=== PATIENT | female | born 1955 | race African-American/Black ===

== ENCOUNTER 2017-03-07 05:37 | Emergency (ER) | payer MEDICARE, MEDICAID ==
[~2017-03-07] VITALS: Ht 162.6 cm; Wt 119.3 kg
[~2017-03-07 05:37] MED LIST: AZO BLADDER CO300 MG PO; AZOR 10-40 MG1 EACH ORAL; CEFDINIR300 MG PO; CIPRO500 MG PO; CIPROFLOXACIN500 M2 ORAL; IBUPROFEN600 MG ORAL; IBUPROFEN800 MG ORAL; JANUVIA25 MG ORAL; KLONOPIN1 MG ORAL; LEVAQUIN500 MG ORAL; LYRICA75 M1 ORAL; METRONIDAZOLE500 MG ORAL; OXYCODONE-ACET1 EAC3 ORAL; PAROXETINE HC12.5 MG ORAL; PHENAZOPYRIDIN200 MG ORAL; PRAVASTATIN SOD20 M1 ORAL; PREDNISONE20 MG ORAL; ZOFRAN4 MG ORAL; antibiotic PO
--- NOTE | 2017-03-07 06:15 | Emergency Room Report ---
History of Present Illness General Chief Complaint: Edema Source: Patient (DWAINE PADILLA M.D.) Present Illness HPI Is a 61-year-old female with history hypertension and hyperlipidemia. She presents with chief complaint of increasing edema for last week. No trauma. Has dyspnea exertion. Her chest pain. Edema is bilaterally. Never had this problem before. No fever chills but no nausea vomiting. No urinary complaint. (DWAINE PADILLA M.D.) Allergies: Coded Allergies: ERYTHROMYCIN BASE (Unverified Allergy, Unknown, 07/25/16) Patient History Past Medical History: see triage record, old chart reviewed, HTN Past Surgical History: other Pertinent Family History: none Social History: Denies: smoking Now: No Immunizations: other Reviewed Nursing Documentation: PMH: Agreed, PSxH: Agreed (DWAINE PADILLA M.D.) Nursing Documentation-PMH Hx Cardiac Problems: Yes - HIGH CHOLESTEROL Hx Hypertension: Yes Hx Diabetes: Yes - TYPE 2 Hx Cancer: No Hx Gastrointestinal Problems: Yes - KIDNEY STONES REMOVAL Hx Dialysis: No - stent in urethra, kidney stone on right side History Of Psychiatric Problem: Yes - ANXIETY Hx Neurological Problems: No Hx Cerebrovascular Accident: No (DWAINE PADILLA M.D.) Review of Systems Eye: Denies: blurred vision, eye pain ENT: Denies: ear pain, nose congestion, throat swelling Respiratory: Reports: PINEDA, Denies: cough, shortness of breath Cardiovascular: Denies: chest pain, palpitations Gastrointestinal: Denies: abdominal pain, diarrhea, nausea, vomiting Musculoskeletal: Denies: back pain, joint pain Skin: Denies: rash Neurological: Denies: headache, numbness Endocrine: Denies: increased thirst, increased urine Hematologic/Lymphatic: Denies: easy bruising All Other Systems: negative except mentioned in HPI (DWAINE PADILLA M.D.) Physical Exam Vital Signs Date Time Temp Pulse Resp B/P Pulse Ox O2 Delivery O2 Flow Rate FiO2 03/07/17 05:43 97.9 80 16 127/81 97 Room Air vitals normal Sp02 EP Interpretation: reviewed, normal General Appearance: well appearing, no apparent distress, alert, obese Head: normocephalic, atraumatic Eyes: bilateral eye EOMI, bilateral eye PERRL ENT: hearing grossly normal, normal pharynx Neck: full range of motion, supple, no meningismus Respiratory: chest non-tender, lungs clear, normal breath sounds Cardiovascular #1: regular rate, rhythm, no murmur Gastrointestinal: normal bowel sounds, non tender, no mass, no organomegaly, no bruit, non-distended Musculoskeletal: back normal, gait/station normal, normal range of motion, swelling - 1+ pitting edema Neurologic: alert, oriented x3 Psychiatric: mood/affect normal Skin: warm/dry (DWAINE PADILLA M.D.) Medical Decision Making Diagnostic Impression: Primary Impression: Peripheral edema Additional Impressions: Renal insufficiency Dyspnea Qualified Codes: R06.09 - Other forms of dyspnea Bronchospasm LFT elevation ER Course Patient with pedal edema. Clinically no evidence of CHF. Lungs are clear. Oxidation is normal. X-rays unremarkable. We'll check labs and cardiac workup. I will sign this patient out to Dr. Llanos for lab results and final disposition. Lab Results Impression labs unremarkable. (DWAINE PADILLA M.D.) ER Course Agree with the above assessment by Dr. Padilla. She's complaining that the edema of left leg is worse than the right. She also has a back pain shooting down the left-hand side. We need to exclude DVT. and Non-invasive vascular study is ordered. In addition she's been wheezing and will be treated with breathing treatments of albuterol. She's been given a dose of Lasix and we will assess how she does (diuresis). She's been taking Dyazide at home and this has not been helpful for her. With the recent renal stone that was removed a couple of months ago we need to assess renal function. Labs are significant for elevated creatinine and liver function tests. Her blood sugar's not elevated. She states that she's been taking 2-800 mg ibuprofen 3 times a day for the pain in her back. Advised this was unwise because of her kidney function. The patient is improved after treatment. Ambulated to the bathroom without dyspnea. She's also diuresed nicely here. If she was not better I would consider admitting her to the hospital. We also discussed salt intake and edema. The patient is stable for outpatient observation and treatment. Laboratory Tests Test 03/07/17 05:52 03/07/17 06:27 Urine Color Pale yellow Urine Appearance Clear Urine pH 6 (4.5-8.0) Urine Specific [place] 1.005 (1.005-1.035) Urine Protein Negative (NEGATIVE) Urine Glucose (UA) Negative (NEGATIVE) Urine Ketones Negative (NEGATIVE) Urine Occult Blood Negative (NEGATIVE) Urine Nitrite Negative (NEGATIVE) Urine Bilirubin Negative (NEGATIVE) Urine Urobilinogen Normal MG/DL (0.0-1.0) Urine Leukocyte Esterase Negative (NEGATIVE) White Blood Count 8.4 K/UL (4.8-10.8) Red Blood Count 4.35 M/UL (4.20-5.40) Hemoglobin 12.6 G/DL (12.0-16.0) Hematocrit 38.9 % (37.0-47.0) Mean Corpuscular Volume 89 FL (80-99) Mean Corpuscular Hemoglobin 28.9 PG (27.0-31.0) Mean Corpuscular Hemoglobin Concent 32.3 G/DL (32.0-36.0) Red Cell Distribution Width 12.7 % (11.6-14.8) Platelet Count 246 K/UL (150-450) Mean Platelet Volume 8.7 FL (6.5-10.1) Neutrophils (%) (Auto) 59.2 % (45.0-75.0) Lymphocytes (%) (Auto) 27.1 % (20.0-45.0) Monocytes (%) (Auto) 10.1 % (1.0-10.0) H Eosinophils (%) (Auto) 2.7 % (0.0-3.0) Basophils (%) (Auto) 0.9 % (0.0-2.0) Prothrombin Time 9.5 SEC (9.30-11.50) Prothrombin Time INR 0.9 (0.9-1.1) PTT 24 SEC (23-33) Sodium Level 137 mEQ/L (135-145) Potassium Level 3.9 mEQ/L (3.4-4.9) Chloride Level 99 mEQ/L (98-107) Carbon Dioxide Level 26 mEQ/L (20-30) Anion Gap 12 (5-15) Blood Urea Nitrogen 21 mg/dL (7-23) Creatinine 1.4 mg/dL (0.5-0.9) H Estimate Glomerular Filtration Rate 46.3 mL/min (>60) Glucose Level 118 mg/dL (74-106) H Calcium Level 10.0 mg/dL (8.6-10.2) Total Bilirubin 0.7 mg/dL (0.0-1.2) Aspartate Amino Transferase (AST) 36 U/L (5-40) Alanine Aminotransferase (ALT) 47 U/L (3-33) H Alkaline Phosphatase 113 U/L (35-104) H Total Creatine Kinase 327 U/L (26-140) H Creatine Kinase MB 5.0 ng/mL (< 3.8) H Creatine Kinase MB Relative Index 1.5 Troponin I < 0.30 ng/mL (<=0.30) Pro-B-Type Natriuretic Peptide 12 pg/mL (0-125) Total Protein 7.8 g/dL (6.6-8.7) Albumin 4.5 g/dL (3.5-5.2) Globulin 3.3 g/dL Albumin/Globulin Ratio 1.3 (1.0-2.7) (Gordon Llanos M.D.) EKG Diagnostic Results EKG Time: 06:23 Rate: normal Rhythm: NSR ST Segments: no acute changes (DWAINE PADILLA M.D.) Rate: normal Rhythm: NSR ST Segments: no acute changes (Gordon Llanos M.D.) Rhythm Strip Diag. Results Rhythm Strip Time: 06:23 EP Interpretation: yes Rate: 68 Rhythm: NSR, no PVC's, no ectopy (DWAINE PADILLA M.D.) EP Interpretation: yes Rhythm: NSR, no PVC's, no ectopy (Gordon Llanos M.D.) Chest X-Ray Diagnostic Results Chest X-Ray Diagnostic Results : Chest X-Ray Ordered: Yes # of Views/Limited/Complete: 1 View Indication: Shortness of Breath Interpretation: no consolidation, no effusion, no pneumothorax, no acute cardiopulmonary disease Impression: No acute disease Interpreting ER Provider: Electronically interpreted by Dwaine Padilla MD (DWAINE PADILLA M.D.) Chest X-Ray Diagnostic Results : Chest X-Ray Ordered: Yes # of Views/Limited/Complete: 1 View Indication: Shortness of Breath EP Interpretation: Yes Interpretation: no consolidation, no effusion, no pneumothorax, no acute cardiopulmonary disease Impression: No acute disease Interpreting ER Provider: Electronically signed by Gordon Llanos MD (Gordon Llanos M.D.) CT/MRI/US Diagnostic Results CT/MRI/US Diagnostic Results : Imaging Test Ordered: US DVT study Impression Read by radiologist. Neg. (DWAINE PADILLA M.D.) Last Vital Signs Date Time Temp Pulse Resp B/P Pulse Ox O2 Delivery O2 Flow Rate FiO2 03/07/17 06:10 80 16 Room Air 03/07/17 05:43 97.9 127/81 97 Status: improved (DWAINE PADILLA M.D.) Last Vital Signs Date Time Temp Pulse Resp B/P Pulse Ox O2 Delivery O2 Flow Rate FiO2 03/07/17 09:57 97.9 73 16 112/53 97 Room Air Status: improved (Gordon Llanos M.D.) Disposition: HOME, SELF-CARE Condition: Improved Scripts Tramadol Hcl* (ULTRAM*) 50 Mg Tablet 50 MG ORAL Q6H Y for For Pain, #12 TAB 0 Refills Prov: Gordon Llanos M.D. 03/07/17 Furosemide* (LASIX*) 20 Mg Tablet 20 MG ORAL EVERY OTHER DAY Y for edema, #6 TAB Prov: Gordon Llanos M.D. 03/07/17 Patient Instructions: Peripheral Edema DWAINE PADILLA M.D. Mar 07, 2017 06:15 Gordon Llanos M.D. Mar 07, 2017 06:51
[2017-03-07] MEDS ORDERED: Ketorolac 30mg Inj IV ONE (06:45)
[2017-03-07] MEDS ORDERED: Albuterol ud Inhalation HHN ONE (06:45)
[2017-03-07 06:56] LABS: APPEARANCE,URINE CLEAR; KETONES,URINE NEGATIVE (NEGATIVE); LEUKOCYTE ESTERASE ,URINE NEGATIVE (NEGATIVE); NITRITE,URINE NEGATIVE (NEGATIVE); PH,URINE 6 (4.5-8.0); PROTEIN,URINE NEGATIVE (NEGATIVE); UROBILINOGEN,URINE NORMAL MG/DL (0.0-1.0)
[2017-03-07 06:57] LABS: BASOPHILS % (AUTO) 0.9 % (0.0-2.0); EOSINOPHILS % (AUTO) 2.7 % (0.0-3.0); LYMPHOCYTES % (AUTO) 27.1 % (20.0-45.0); MEAN CORPUSCULAR HEMOGLOBIN 28.9 PG (27.0-31.0); MEAN CORPUSCULAR HGB CONC 32.3 G/DL (32.0-36.0); MEAN CORPUSCULAR VOLUME 89 FL (80-99); MEAN PLATELET VOLUME 8.7 FL (6.5-10.1); MONOCYTES % (AUTO) 10.1 % (1.0-10.0); NEUTROPHILS % (AUTO) 59.2 % (45.0-75.0); PLATELET COUNT 246 K/UL (150-450); RED BLOOD COUNT 4.35 M/UL (4.20-5.40); RED CELL DISTRIBUTION WIDTH 12.7 % (11.6-14.8); WHITE BLOOD COUNT 8.4 K/UL (4.8-10.8)
[2017-03-07 07:12] LABS: ALBUMIN/GLOBULIN RATIO 1.3 (1.0-2.7); CREATININE 1.4 mg/dL (0.5-0.9); GLOMERULAR FILTRATION RATE 46.3 mL/min (>60); POTASSIUM 3.9 mEQ/L (3.4-4.9); TOTAL PROTEIN 7.8 g/dL (6.6-8.7)
[2017-03-07 07:14] LABS: TROPONIN I < 0.30 ng/mL (<=0.30)
[2017-03-07 07:16] LABS: INR 0.9 (0.9-1.1); PROTHROMBIN TIME 9.5 SEC (9.30-11.50)
[2017-03-07 07:42] VITALS: BP 98/50
[2017-03-07 09:00] VITALS: BP 99/55
[2017-03-07] MEDS ORDERED: LASIX20 M1 ORAL (09:52)
[2017-03-07] MEDS ORDERED: TRAMADOL HCL50 MG ORAL (09:52)
[2017-03-07 09:55] VITALS: BP 112/53
[2017-03-07 09:57] VITALS: BP 112/53
--- NOTE | 2017-03-07 11:35 | Diagnostic Imaging Report ---
Indication: Dyspnea Comparison: 07/25/16 A single view chest radiograph was obtained. Findings: Cardiomediastinal appearance is within normal limits for age. Pulmonary vascularity is appropriate. The diaphragmatic contour is smooth and costophrenic angles are sharp. No pleural effusions are identified. The bones are osteopenic. Impression: No acute findings
--- NOTE | 2017-03-08 08:15 | Cardiology Report ---
APPROVED REPORT EKG Measurement Heart [id number] Normal sinus rhythm Normal ECG
--- NOTE | 2017-03-09 15:10 | Diagnostic Imaging Report ---
APPROVED REPORT CPT Code: 80757 Present Symptoms Lower Extremity Pain: Left LEFT LEG: Venous imaging reveals a patent deep venous system. There is no evidence of thrombus within the femoral, popliteal or tibial segments. The greater saphenous vein is also within normal limits. Doppler indicates normal spontaneous flow within these segments. Technically difficult study due to vessel depth (mid-thigh and calf area).
== END 2017-03-07 10:04 | disposition home or self-care (01) ==
LOC: EMR 06:10
DX: R60.9 Edema, unspecified (principal); R06.09 Other forms of dyspnea; J98.01 Acute bronchospasm; R79.89 Other specified abnormal findings of blood chemistry; N28.9 Disorder of kidney and ureter, unspecified; E78.00 Pure hypercholesterolemia, unspecified; I10 Essential (primary) hypertension; E11.9 Type 2 diabetes mellitus without complications; Z87.442 Personal history of urinary calculi; F41.9 Anxiety disorder, unspecified; Z88.1 Allergy status to other antibiotic agents; Z96.0 Presence of urogenital implants
CPT/HCPCS: 36415; 71010; 80053; 81003; 82550; 82553; 83880; 84484; 85025; 85610; 85730; 93005; 93971; 96374; 96375; 99284; J1885; J1940

== ENCOUNTER 2017-04-24 16:41 | Emergency (ER) | payer MEDICARE, MEDICAID ==
[~2017-04-24] VITALS: Ht 162.6 cm; Wt 9.1 kg
[~2017-04-24 16:41] MED LIST changes: +LASIX20 M1 ORAL; +TRAMADOL HCL50 MG ORAL
[2017-04-24 16:55] VITALS: BP 122/70
--- NOTE | 2017-04-24 17:15 | Emergency Room Report ---
History of Present Illness General Chief Complaint: Dyspnea/Respdistress Source: Patient Present Illness HPI Patient presents with complaints of left ankle swelling Patient also had complained of some shortness of breath sensation however Her main complaint was the swelling in the ankle The patient reports that she poked the area with her diabetic needle And there was some serosanguineous discharge Denies any chest pain denies any back or flank pain denies any vomiting or diarrhea Patient reports that she was somewhat improved with the water pills she was given to her however again the swelling had returned Allergies: Coded Allergies: ERYTHROMYCIN BASE (Unverified Allergy, Unknown, 07/25/16) Patient History Past Medical History: see triage record Pertinent Family History: none Reviewed Nursing Documentation: PMH: Agreed, PSxH: Agreed Nursing Documentation-PMH Hx Cardiac Problems: Yes - HIGH CHOLESTEROL Hx Hypertension: Yes Hx Diabetes: Yes - TYPE 2 Hx Cancer: No Hx Gastrointestinal Problems: Yes - KIDNEY STONES REMOVAL Hx Dialysis: No - stent in urethra, kidney stone on right side Hx Neurological Problems: No Hx Cerebrovascular Accident: No Review of Systems All Other Systems: negative except mentioned in HPI Physical Exam Vital Signs Date Time Temp Pulse Resp B/P Pulse Ox O2 Delivery O2 Flow Rate FiO2 04/24/17 16:47 97.0 76 20 122/70 97 Room Air Sp02 EP Interpretation: reviewed, normal General Appearance: well appearing, no apparent distress Head: normocephalic, atraumatic Eyes: bilateral eye PERRL, bilateral eye EOMI ENT: hearing grossly normal, normal pharynx, TMs + canals normal, uvula midline Neck: full range of motion, supple, no meningismus, no bony tend Respiratory: lungs clear, normal breath sounds, no rhonchi, no respiratory distress, no retraction, no accessory muscle use Cardiovascular #1: normal peripheral pulses, regular rate, rhythm, no gallop, no JVD, no murmur Gastrointestinal: normal bowel sounds, non tender, soft, no mass, no organomegaly, non-distended, no guarding, no hernia, no pulsatile mass, no rebound Genitourinary: no CVA tenderness Musculoskeletal: swelling - Mild dependent edema left ankle, several areas of puncture likely from the needle that was used Neurologic: oriented x3, responsive, meat products demonstrator III-XII nml as tested, motor strength/ tone normal, sensory intact Psychiatric: mood/affect normal Skin: other - as above Lymphatic: no adenopathy Medical Decision Making Diagnostic Impression: Primary Impression: Peripheral edema ER Course Patient is a fairly complex patient with multiple differential to consideration including but not limited to cardiac cardiopulmonary and vascular emergencies Patient had extensive blood work obtained No obvious signs of CHF Patient appears to have signs of peripheral edema Likely vascular disease At this time is stable for close outpatient followup Labs Test 04/24/17 16:55 White Blood Count 9.2 K/UL (4.8-10.8) Red Blood Count 4.05 M/UL (4.20-5.40) Hemoglobin 12.4 G/DL (12.0-16.0) Hematocrit 35.0 % (37.0-47.0) Mean Corpuscular Volume 87 FL (80-99) Mean Corpuscular Hemoglobin 30.6 PG (27.0-31.0) Mean Corpuscular Hemoglobin Concent 35.4 G/DL (32.0-36.0) Red Cell Distribution Width 12.5 % (11.6-14.8) Platelet Count 218 K/UL (150-450) Mean Platelet Volume 9.1 FL (6.5-10.1) Neutrophils (%) (Auto) 63.0 % (45.0-75.0) Lymphocytes (%) (Auto) 25.9 % (20.0-45.0) Monocytes (%) (Auto) 8.0 % (1.0-10.0) Eosinophils (%) (Auto) 1.9 % (0.0-3.0) Basophils (%) (Auto) 1.1 % (0.0-2.0) Sodium Level 138 mEQ/L (135-145) Potassium Level 4.1 mEQ/L (3.4-4.9) Chloride Level 100 mEQ/L (98-107) Carbon Dioxide Level 24 mEQ/L (20-30) Anion Gap 14 (5-15) Blood Urea Nitrogen 16 mg/dL (7-23) Creatinine 1.3 mg/dL (0.5-0.9) Estimat Glomerular Filtration Rate 50.4 mL/min (>60) Glucose Level 98 mg/dL (74-106) Calcium Level 10.1 mg/dL (8.6-10.2) Total Bilirubin 0.6 mg/dL (0.0-1.2) Aspartate Amino Transf (AST/SGOT) 42 U/L (5-40) Alanine Aminotransferase (ALT/SGPT) 48 U/L (3-33) Alkaline Phosphatase 115 U/L (35-104) Total Creatine Kinase 178 U/L (26-140) Creatine Kinase MB 3.3 ng/mL (< 3.8) Creatine Kinase MB Relative Index 1.8 Troponin I < 0.30 ng/mL (<=0.30) Pro-B-Type Natriuretic Peptide 5 pg/mL (0-125) Total Protein 7.8 g/dL (6.6-8.7) Albumin 4.5 g/dL (3.5-5.2) Globulin 3.3 g/dL Albumin/Globulin Ratio 1.3 (1.0-2.7) Lipase 39 U/L (< 60) Rhythm Strip Diag. Results EP Interpretation: yes Rate: 66 Rhythm: NSR, no PVC's, no ectopy Chest X-Ray Diagnostic Results Chest X-Ray Diagnostic Results : Chest X-Ray Ordered: Yes # of Views/Limited/Complete: 1 View Indication: Chest Pain EP Interpretation: Yes Interpretation: no consolidation, no effusion, no pneumothorax Impression: No acute disease Interpreting ER Provider: Syed Nick DO Last Vital Signs Date Time Temp Pulse Resp B/P Pulse Ox O2 Delivery O2 Flow Rate FiO2 04/24/17 16:55 76 20 Room Air 04/24/17 16:55 122/70 97 04/24/17 16:47 97.0 Status: improved Disposition: HOME, SELF-CARE Condition: Improved Additional Instructions: Patient is provided with the discharge instructions notified to follow up with primary doctor in the next 2-3 days otherwise return to the er with any worsening symptoms. Please note that this report is being documented using [employer] technology. This can lead to erroneous entry secondary to incorrect interpretation by the dictating instrument. SYED NICK D.O. Apr 24, 2017 17:15
[2017-04-24 18:03] LABS: BASOPHILS % (AUTO) 1.1 % (0.0-2.0); EOSINOPHILS % (AUTO) 1.9 % (0.0-3.0); LYMPHOCYTES % (AUTO) 25.9 % (20.0-45.0); MEAN CORPUSCULAR HEMOGLOBIN 30.6 PG (27.0-31.0); MEAN CORPUSCULAR HGB CONC 35.4 G/DL (32.0-36.0); MEAN CORPUSCULAR VOLUME 87 FL (80-99); MEAN PLATELET VOLUME 9.1 FL (6.5-10.1); PLATELET COUNT 218 K/UL (150-450); RED BLOOD COUNT 4.05 M/UL (4.20-5.40); RED CELL DISTRIBUTION WIDTH 12.5 % (11.6-14.8); WHITE BLOOD COUNT 9.2 K/UL (4.8-10.8)
[2017-04-24 18:16] LABS: ALBUMIN/GLOBULIN RATIO 1.3 (1.0-2.7); CALCIUM 10.1 mg/dL (8.6-10.2); CREATININE 1.3 mg/dL (0.5-0.9); GLOMERULAR FILTRATION RATE 50.4 mL/min (>60); POTASSIUM 4.1 mEQ/L (3.4-4.9); TOTAL PROTEIN 7.8 g/dL (6.6-8.7)
[2017-04-24 18:20] LABS: TROPONIN I < 0.30 ng/mL (<=0.30)
[2017-04-24 18:30] LABS: CKMB 3.3 ng/mL (< 3.8)
[2017-04-24 18:53] VITALS: BP 99/58
--- NOTE | 2017-04-25 09:24 | Diagnostic Imaging Report ---
Indications: Shortness of breath Technique: Portable AP chest Findings: Comparison: 03/07/2017 Cardiac silhouette remains normal in size. Pulmonary vasculature remains within normal limits. Lungs and pleura remain clear. Mild calcification of the aortic arch, thoracic vertebral osteophytes again noted. IMPRESSION: No evidence of acute disease, unchanged Stable chronic changes as described
--- NOTE | 2017-04-25 15:26 | Cardiology Report ---
APPROVED REPORT EKG Measurement Heart [id number] [place] [id number] [id number] Normal sinus rhythm Normal ECG
== END 2017-04-24 19:30 | disposition home or self-care (01) ==
LOC: EMR 19:09
DX: R60.0 Localized edema (principal); I10 Essential (primary) hypertension; E11.9 Type 2 diabetes mellitus without complications; Z88.1 Allergy status to other antibiotic agents
CPT/HCPCS: 36415; 71010; 80053; 82550; 82553; 83690; 83880; 84484; 85025; 93005; 99283

== ENCOUNTER 2017-07-05 23:05 | Emergency (ER) | payer MEDICARE, MEDICAID ==
[~2017-07-05] VITALS: Ht 162.6 cm; Wt 117.9 kg
[2017-07-05 23:35] VITALS: BP 133/71
[2017-07-06 00:21] LABS: BASOPHILS % (AUTO) 0.7 % (0.0-2.0); EOSINOPHILS % (AUTO) 3.5 % (0.0-3.0); HEMOGLOBIN 12.1 G/DL (12.0-16.0); LYMPHOCYTES % (AUTO) 35.3 % (20.0-45.0); MEAN CORPUSCULAR VOLUME 88 FL (80-99); MONOCYTES % (AUTO) 9.2 % (1.0-10.0); NEUTROPHILS % (AUTO) 51.2 % (45.0-75.0); PLATELET COUNT 212 K/UL (150-450); RED BLOOD COUNT 4.23 M/UL (4.20-5.40); RED CELL DISTRIBUTION WIDTH 12.9 % (11.6-14.8); WHITE BLOOD COUNT 5.9 K/UL (4.8-10.8)
[2017-07-06 00:34] LABS: ALANINE AMINOTRANSFERASE 53 U/L (12-78); ALBUMIN 3.8 G/DL (3.4-5.0); ALBUMIN/GLOBULIN RATIO 1.1 (1.0-2.7); ALKALINE PHOSPHATASE 91 U/L (46-116); ANION GAP 11 mmol/L (5-15); ASPARTATE AMINO TRANSFERASE 24 U/L (15-37); BLOOD UREA NITROGEN 13 mg/dL (7-18); CALCIUM 9.5 MG/DL (8.5-10.1); CARBON DIOXIDE 26 MMOL/L (21-32); CHLORIDE 106 MMOL/L (98-107); CREATININE 1.3 MG/DL (0.55-1.30); POTASSIUM 3.3 MMOL/L (3.5-5.1); SODIUM 143 MMOL/L (136-145)
[2017-07-06 00:43] LABS: CKMB 1.9 NG/ML (0.0-3.6); CREATINE KINASE 142 U/L (26-308)
[2017-07-06 01:00] LABS: APPEARANCE,URINE CLEAR; BILIRUBIN, URINE NEGATIVE (NEGATIVE); COLOR,URINE YELLOW; GLUCOSE, URINE (UA) NEGATIVE (NEGATIVE); KETONES,URINE NEGATIVE (NEGATIVE); LEUKOCYTE ESTERASE ,URINE 3+ (NEGATIVE); NITRITE,URINE NEGATIVE (NEGATIVE); PH,URINE 5 (4.5-8.0); PROTEIN,URINE 1+ (NEGATIVE); UROBILINOGEN,URINE NORMAL MG/DL (0.0-1.0)
--- NOTE | 2017-07-06 01:12 | Emergency Room Report ---
History of Present Illness General Chief Complaint: Pain Source: Patient Present Illness HPI 62-year-old female with hypertension diabetes, presenting with lightheadedness, fell onto left knee today. No head trauma or LOC. Patient states that she ran out of her januvia at 2 days ago. No polyuria or polydipsia. Patient states that she has been urinating about 3-4 times a day. Denies any headache, blurry vision, neck pain, chest pain, shortness of breath, nausea vomiting or diarrhea Is complaining of left knee pain worse with movement however patient has been able to ambulate Allergies: Coded Allergies: ERYTHROMYCIN BASE (Unverified Allergy, Unknown, 07/25/16) Patient History Past Medical History: see triage record Past Surgical History: none Pertinent Family History: none Now: No Reviewed Nursing Documentation: PMH: Agreed, PSxH: Agreed Nursing Documentation-PMH Hx Cardiac Problems: Yes - HIGH CHOLESTEROL Hx Hypertension: Yes - high cholesterol Hx Diabetes: Yes Hx Cancer: No Hx Gastrointestinal Problems: Yes - KIDNEY STONES REMOVAL Hx Dialysis: No - stent in urethra, kidney stone on right side History Of Psychiatric Problem: Yes - anxiety, panic attack disorder Hx Neurological Problems: No Hx Cerebrovascular Accident: No Review of Systems All Other Systems: negative except mentioned in HPI Physical Exam Vital Signs Date Time Temp Pulse Resp B/P (MAP) Pulse Ox O2 Delivery O2 Flow Rate FiO2 07/05/17 23:17 98.4 79 14 133/71 96 Room Air Sp02 EP Interpretation: reviewed, normal General Appearance: normal inspection, well appearing, no apparent distress, alert, GCS 15, non-toxic Head: normocephalic, atraumatic Eyes: bilateral eye normal inspection, bilateral eye PERRL, bilateral eye EOMI ENT: normal ENT inspection, normal pharynx, normal voice, moist mucus membranes Neck: normal inspection, full range of motion, supple Respiratory: normal inspection, lungs clear, normal breath sounds, no respiratory distress, no retraction, no wheezing, speaking full sentences, chest symmetrical Cardiovascular #1: normal inspection, regular rate, rhythm, no edema, normal capillary refill Cardiovascular #2: 2+ radial (R), 2+ radial (L) Gastrointestinal: normal inspection, non tender, soft, non-distended, no guarding Musculoskeletal: other - Left knee tender to palpation, anterior patella, no effusion, valgus, varus, negative Neurologic: normal inspection, alert, oriented x3, responsive, motor strength/ tone normal, sensory intact, normal gait, speech normal Psychiatric: normal inspection, judgement/insight normal, memory normal Skin: normal inspection, normal color, no rash, warm/dry, well hydrated, normal turgor Medical Decision Making Diagnostic Impression: Primary Impression: Knee pain Additional Impression: Lightheadedness ER Course 62-year-old female with diabetes, presenting with lightheadedness, fell onto left knee DDX: Rule out hyperglycemia, allegedly disturbance, UTI, dehydration Rule out left knee contusion versus fracture Plan: Obtain labs, ua, ucx, EKG, and knee x-ray ER course: Patient has remained stable during ED stay. Labs unremarkable, glucose is normal, patient on DKA Patient feels much better during ED stay, is ambulatory Knee x-ray is negative for acute disease Disposition: Patient is to be discharged to home. Patient is instructed to follow up with their primary care doctor within 5 days. Strict return precautions discussed with patient such as fever, chills, worsening/severe pain, nausea, vomiting, which may indicate severe illness. Patient verbalizes understanding and agrees with plan. Please note that this Emergency Department Report was dictated using [employer] Healthcarecomprehensive ophthalmologist technology software, occasionally this can lead to erroneous entry secondary to interpretation by the dictation equipment EKG Diagnostic Results EP Interpretation: Yes Rate: normal Rhythm: NSR ST Segments: No acute changes ASA given to patient: No Xray: Left knee 3 view Indication: Pain EP Interpretation: Yes Interpretation: No dislocation, no soft tissue swelling, no fractures, degenerative disease Impression: No acute disease Electronically signed by Annabelle oGff MD Laboratory Tests Test 07/06/17 00:00 07/06/17 00:30 White Blood Count 5.9 K/UL (4.8-10.8) Red Blood Count 4.23 M/UL (4.20-5.40) Hemoglobin 12.1 G/DL (12.0-16.0) Hematocrit 37.0 % (37.0-47.0) Mean Corpuscular Volume 88 FL (80-99) Mean Corpuscular Hemoglobin 28.7 PG (27.0-31.0) Mean Corpuscular Hemoglobin Concent 32.8 G/DL (32.0-36.0) Red Cell Distribution Width 12.9 % (11.6-14.8) Platelet Count 212 K/UL (150-450) Mean Platelet Volume 7.4 FL (6.5-10.1) Neutrophils (%) (Auto) 51.2 % (45.0-75.0) Lymphocytes (%) (Auto) 35.3 % (20.0-45.0) Monocytes (%) (Auto) 9.2 % (1.0-10.0) Eosinophils (%) (Auto) 3.5 % (0.0-3.0) H Basophils (%) (Auto) 0.7 % (0.0-2.0) Sodium Level 143 MMOL/L (136-145) Potassium Level 3.3 MMOL/L (3.5-5.1) L Chloride Level 106 MMOL/L (98-107) Carbon Dioxide Level 26 MMOL/L (21-32) Anion Gap 11 mmol/L (5-15) Blood Urea Nitrogen 13 mg/dL (7-18) Creatinine 1.3 MG/DL (0.55-1.30) Estimate Glomerular Filtration Rate 50.3 mL/min (>60) Glucose Level 104 MG/DL (74-106) Calcium Level 9.5 MG/DL (8.5-10.1) Total Bilirubin 1.0 MG/DL (0.2-1.0) Aspartate Amino Transferase (AST) 24 U/L (15-37) Alanine Aminotransferase (ALT) 53 U/L (12-78) Alkaline Phosphatase 91 U/L (46-116) Total Creatine Kinase 142 U/L (26-308) Creatine Kinase MB 1.9 NG/ML (0.0-3.6) Creatine Kinase MB Relative Index 1.3 Troponin I 0.000 ng/mL (0.000-0.056) Total Protein 7.3 G/DL (6.4-8.2) Albumin 3.8 G/DL (3.4-5.0) Globulin 3.5 g/dL Albumin/Globulin Ratio 1.1 (1.0-2.7) Urine Color Yellow Urine Appearance Clear Urine pH 5 (4.5-8.0) Urine Specific [place] 1.025 (1.005-1.035) Urine Protein 1+ (NEGATIVE) H Urine Glucose (UA) Negative (NEGATIVE) Urine Ketones Negative (NEGATIVE) Urine Occult Blood 1+ (NEGATIVE) H Urine Nitrite Negative (NEGATIVE) Urine Bilirubin Negative (NEGATIVE) Urine Urobilinogen Normal MG/DL (0.0-1.0) Urine Leukocyte Esterase 3+ (NEGATIVE) H Urine RBC 2-4 /HPF (0 - 2) H Urine WBC 5-10 /HPF (0 - 2) H Urine Squamous Epithelial Cells Moderate /LPF (NONE/OCC) H Urine Bacteria Few /HPF (NONE) Last Vital Signs Date Time Temp Pulse Resp B/P (MAP) Pulse Ox O2 Delivery O2 Flow Rate FiO2 07/05/17 23:17 98.4 79 14 133/71 96 Room Air Disposition: HOME, SELF-CARE Condition: Stable Patient Instructions: Dizziness, [id number], Knee Pain, [id number] Annabelle Goff M.D. Jul 06, 2017 01:12
[2017-07-06 01:35] VITALS: BP 142/78
[2017-07-06 02:17] VITALS: BP 142/78
--- NOTE | 2017-07-06 10:22 | Diagnostic Imaging Report ---
Indication: PAIN chest pain Technique: One view of the chest Comparison: 04/24/2017 Findings: Lungs and pleural spaces are clear. Heart size is normal. There are degenerative changes of the thoracic spine. No significant interim change Impression: No acute process This agrees with the preliminary interpretation provided by the emergency room physician
--- NOTE | 2017-07-06 10:29 | Diagnostic Imaging Report ---
Indication: PAIN Technique: 3 views of the left knee Comparison: None Findings:There is marked medial compartmental degenerative joint space narrowing. There are medial and lateral osteophytes. There are also patellofemoral osteophytes. No suprapatellar effusion. No acute fractures or dislocations. There is questionably an old healed fracture deformity of the proximal fibula. Impression:No acute bony trauma
--- NOTE | 2017-07-07 14:46 | Cardiology Report ---
APPROVED REPORT EKG Measurement Heart [id number] [place] 164P6 [id number] Normal sinus rhythm Normal ECG
--- NOTE | 2017-07-07 14:46 | Cardiology Report ---
APPROVED REPORT EKG Measurement Heart [id number] [place] 164P6 [id number] Normal sinus rhythm Normal ECG
--- NOTE | 2017-07-07 14:46 | Cardiology Report ---
APPROVED REPORT EKG Measurement Heart [id number] 164P6 [id number] Normal sinus rhythm Normal ECG
== END 2017-07-06 02:17 | disposition home or self-care (01) ==
LOC: EMR 07-06 02:13
DX: M25.562 Pain in left knee (principal); R42 Dizziness and giddiness; E11.9 Type 2 diabetes mellitus without complications; I10 Essential (primary) hypertension; Z87.442 Personal history of urinary calculi; F41.9 Anxiety disorder, unspecified
CPT/HCPCS: 36415; 71010; 80053; 81003; 82550; 82553; 84484; 85025; 93005; 99283; 99291

== ENCOUNTER 2017-07-08 15:58 | Emergency (ER) | payer MEDICARE, MEDICAID ==
[~2017-07-08] VITALS: Ht 157.5 cm; Wt 117.9 kg
[2017-07-08 16:05] VITALS: BP 121/70
[2017-07-08] MEDS ORDERED: oxyCODONE HCL/Acetaminophen 5/325mg ORAL ONE (16:30)
--- NOTE | 2017-07-08 17:36 | Emergency Room Report ---
History of Present Illness General Chief Complaint: Pain Source: Patient, Medical Record Present Illness HPI Patient fell at 1:30 this afternoon. She took a [place] and 800 mg Motrin approximately 20 minutes later. She hit her knees - left hit worse than her right. 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 She also is complaining about some back pain. Not radiating down her legs. She's able to ambulate. Pain is 9/10, not radiating, aching and sharp. The patient does suffer from diabetic neuropathy. She has not taken her diet buttock medication today. She seen a rn outpatient surgery to rest her feet. Juanjo rn outpatient surgery tomorrow for She denies fevers chills dysuria, chest pain, LOC, rashes, change in bowels. 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 She did not take her diabetic medicine this AM, not know her sugar. She had a 10 mm stone removed several months ago from L ureter. No flank pain. Allergies: Coded Allergies: ERYTHROMYCIN BASE (Unverified Allergy, Unknown, 07/25/16) Patient History Past Medical History: see triage record, other - osteoarthritis Past Surgical History: other - R knee replacement Social History: Denies: smoking Social History Narrative She's taking care of her father who is on dialysis. 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 Period: 2003 Reviewed Nursing Documentation: PMH: Agreed, PSxH: Agreed Nursing Documentation-PM Past Medical History: No History, Except For Hx Cardiac Problems: Yes - HIGH CHOLESTEROL Hx Hypertension: Yes - high cholesterol Hx Diabetes: Yes Hx Cancer: No Hx Gastrointestinal Problems: Yes - KIDNEY STONES REMOVAL Hx Dialysis: No - stent in urethra, kidney stone on right side Hx Neurological Problems: No Hx Cerebrovascular Accident: No Physical Exam Vital Signs Date Time Temp Pulse Resp B/P (MAP) Pulse Ox O2 Delivery O2 Flow Rate FiO2 07/08/17 16:01 98.1 80 18 121/70 98 Room Air Sp02 EP Interpretation: reviewed, normal General Appearance: well appearing, no apparent distress, GCS 15 Head: normocephalic Eyes: bilateral eye normal inspection, bilateral eye PERRL ENT: moist mucus membranes Neck: supple Respiratory: lungs clear, normal breath sounds Cardiovascular #1: regular rate, rhythm Cardiovascular #2: 2+ radial (R) Gastrointestinal: normal inspection, normal bowel sounds, non tender, no mass, non-distended Musculoskeletal: gait/station normal, normal range of motion, other - knee ligaments stable, tendern with all ligament distraction, but they are stable Neurologic: alert, oriented x3, motor strength/tone normal, sensory intact Psychiatric: mood/affect normal Skin: warm/dry, other - old scar R knee, abrasions - L knee Medical Decision Making Diagnostic Impression: Primary Impression: Fall Qualified Codes: W19.XXXA - Unspecified fall, initial encounter Additional Impressions: Knee contusion Qualified Codes: S80.00XA - Contusion of unspecified knee, initial encounter Back pain Qualified Codes: M54.5 - Low back pain ER Course Patient presents post fall with knee and back pain. DDx; contusion, strain, fx , disk disease amongst others. By [place] knee rules, doubt fx, but need x-rays as underlying disease. Analgesia given. Xrays with knee replacement and DJD. No fractures. Accucheck = 124. Simon applied by me on L knee. Neurovasc checked by me and normal. Patient improved. Patient stable for outpatient observation and treatment. Other X-Ray Diagnostic Results Other X-Ray Diagnostic Results #1: X-Ray ordered: L knee # of Views/Limited Vs Complete: 3 View Interpretation: no dislocation, no soft tissue swelling, no fractures, other - DJD Impression: Other Electronically Signed by: Electronically signed by Gordon Llanos MD Other X-Ray Diagnostic Results #2: X-Ray ordered: R knee # of Views/Limited Vs Complete: 3 View Interpretation: no dislocation, no soft tissue swelling, no fractures, other - prosthesis Impression: Other Electronically Signed by: Electronically signed by Gordon Llanos MD Last Vital Signs Date Time Temp Pulse Resp B/P (MAP) Pulse Ox O2 Delivery O2 Flow Rate FiO2 07/08/17 17:50 98.1 83 15 128/72 100 Room Air Status: improved Disposition: HOME, SELF-CARE Condition: Improved Scripts Methocarbamol* (ROBAXIN*) 500 Mg Tablet 500 MG PO TID, #10 TAB 0 Refills Prov: Gordon Llanos M.D. 07/08/17 Ibuprofen* (MOTRIN*) 600 Mg Tablet 600 MG ORAL Q6H Y for For Pain, #20 TAB Prov: Gordon Llanos M.D. 07/08/17 Hydrocodone Bit/Acetaminophen 5-325* (NORCO 5-325*) 1 Each Tablet 1 TAB ORAL Q6H Y for For Pain, #12 TAB 0 Refills Prov: Gordon Llanos M.D. 07/08/17 Referrals: ELI HULL (PCP) Gordon Llanos M.D. Jul 08, 2017 17:36
--- NOTE | 2017-07-08 17:36 | Emergency Room Report ---
History of Present Illness General Chief Complaint: Pain Source: Patient, Medical Record Present Illness HPI Patient fell at 1:30 this afternoon. She took a [place] and 800 mg Motrin approximately 20 minutes later. She hit her knees - left hit worse than her right. 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 She also is complaining about some back pain. Not radiating down her legs. She's able to ambulate. Pain is 9/10, not radiating, aching and sharp. The patient does suffer from diabetic neuropathy. She has not taken her diet buttock medication today. She seen a setter molding and coremaking machines to rest her feet. Juanjo setter molding and coremaking machines tomorrow for She denies fevers chills dysuria, chest pain, LOC, rashes, change in bowels. 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 She did not take her diabetic medicine this AM, not know her sugar. She had a 10 mm stone removed several months ago from L ureter. No flank pain. Allergies: Coded Allergies: ERYTHROMYCIN BASE (Unverified Allergy, Unknown, 07/25/16) Patient History Past Medical History: see triage record, other - osteoarthritis Past Surgical History: other - R knee replacement Social History: Denies: smoking Social History Narrative She's taking care of her father who is on dialysis. 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 Period: 2003 Reviewed Nursing Documentation: PMH: Agreed, PSxH: Agreed Nursing Documentation-PM Past Medical History: No History, Except For Hx Cardiac Problems: Yes - HIGH CHOLESTEROL Hx Hypertension: Yes - high cholesterol Hx Diabetes: Yes Hx Cancer: No Hx Gastrointestinal Problems: Yes - KIDNEY STONES REMOVAL Hx Dialysis: No - stent in urethra, kidney stone on right side Hx Neurological Problems: No Hx Cerebrovascular Accident: No Physical Exam Vital Signs Date Time Temp Pulse Resp B/P (MAP) Pulse Ox O2 Delivery O2 Flow Rate FiO2 07/08/17 16:01 98.1 80 18 121/70 98 Room Air Sp02 EP Interpretation: reviewed, normal General Appearance: well appearing, no apparent distress, GCS 15 Head: normocephalic Eyes: bilateral eye normal inspection, bilateral eye PERRL ENT: moist mucus membranes Neck: supple Respiratory: lungs clear, normal breath sounds Cardiovascular #1: regular rate, rhythm Cardiovascular #2: 2+ radial (R) Gastrointestinal: normal inspection, normal bowel sounds, non tender, no mass, non-distended Musculoskeletal: gait/station normal, normal range of motion, other - knee ligaments stable, tendern with all ligament distraction, but they are stable Neurologic: alert, oriented x3, motor strength/tone normal, sensory intact Psychiatric: mood/affect normal Skin: warm/dry, other - old scar R knee, abrasions - L knee Medical Decision Making Diagnostic Impression: Primary Impression: Fall Qualified Codes: W19.XXXA - Unspecified fall, initial encounter Additional Impressions: Knee contusion Qualified Codes: S80.00XA - Contusion of unspecified knee, initial encounter Back pain Qualified Codes: M54.5 - Low back pain ER Course Patient presents post fall with knee and back pain. DDx; contusion, strain, fx , disk disease amongst others. By [place] knee rules, doubt fx, but need x-rays as underlying disease. Analgesia given. Xrays with knee replacement and DJD. No fractures. Accucheck = 124. Simon applied by me on L knee. Neurovasc checked by me and normal. Patient improved. Patient stable for outpatient observation and treatment. Other X-Ray Diagnostic Results Other X-Ray Diagnostic Results #1: X-Ray ordered: L knee # of Views/Limited Vs Complete: 3 View Interpretation: no dislocation, no soft tissue swelling, no fractures, other - DJD Impression: Other Electronically Signed by: Electronically signed by Gordon Llanos MD Other X-Ray Diagnostic Results #2: X-Ray ordered: R knee # of Views/Limited Vs Complete: 3 View Interpretation: no dislocation, no soft tissue swelling, no fractures, other - prosthesis Impression: Other Electronically Signed by: Electronically signed by Gordon Llanos MD Last Vital Signs Date Time Temp Pulse Resp B/P (MAP) Pulse Ox O2 Delivery O2 Flow Rate FiO2 07/08/17 17:50 98.1 83 15 128/72 100 Room Air Status: improved Disposition: HOME, SELF-CARE Condition: Improved Scripts Methocarbamol* (ROBAXIN*) 500 Mg Tablet 500 MG PO TID, #10 TAB 0 Refills Prov: Gordon Llanos M.D. 07/08/17 Ibuprofen* (MOTRIN*) 600 Mg Tablet 600 MG ORAL Q6H Y for For Pain, #20 TAB Prov: Gordon Llanos M.D. 07/08/17 Hydrocodone Bit/Acetaminophen 5-325* (NORCO 5-325*) 1 Each Tablet 1 TAB ORAL Q6H Y for For Pain, #12 TAB 0 Refills Prov: Gordon Llanos M.D. 07/08/17 Referrals: ELI HULL (PCP) Gordon Llanos M.D. Jul 08, 2017 17:36
[2017-07-08] MEDS ORDERED: ROBAXIN500 MG PO (17:41)
[2017-07-08] MEDS ORDERED: NORCO 5-325 TA1 EACH ORAL (17:41)
[2017-07-08] MEDS ORDERED: IBUPROFEN600 MG ORAL (17:41)
[2017-07-08 17:50] VITALS: BP 128/72
--- NOTE | 2017-07-09 12:29 | Diagnostic Imaging Report ---
Indication: Pain 3 views of the right knee were obtained. Findings: Cemented total knee arthroplasty demonstrated. Alignment and position appear satisfactory. There is no fracture or malalignment seen. Bones are osteopenic. In pression: No acute findings
--- NOTE | 2017-07-09 12:30 | Diagnostic Imaging Report ---
Indication: Pain 3 views of the left knee were obtained. Findings: No acute fracture seen. There is moderate narrowing of the joint space and marginal spur formation. Bones are osteopenic. Impression: Moderate osteoarthritis
== END 2017-07-08 17:50 | disposition home or self-care (01) ==
LOC: EMR 17:25
DX: S80.00XA Contusion of unspecified knee, initial encounter (principal); M54.5 Low back pain; E78.00 Pure hypercholesterolemia, unspecified; E11.9 Type 2 diabetes mellitus without complications; Z87.442 Personal history of urinary calculi; Z96.651 Presence of right artificial knee joint; Z88.1 Allergy status to other antibiotic agents; Z96.0 Presence of urogenital implants; W18.30XA Fall on same level, unspecified, initial encounter; Y92.9 Unspecified place or not applicable
CPT/HCPCS: 82962; 99284

== ENCOUNTER 2017-08-01 20:35 | Emergency (ER) | payer MEDICARE, MEDICAID ==
[~2017-08-01] VITALS: Ht 162.6 cm; Wt 72.6 kg
[~2017-08-01 20:35] MED LIST changes: +NORCO 5-325 TA1 EACH ORAL; +ROBAXIN500 MG PO
[2017-08-01 20:43] VITALS: BP 152/74
[2017-08-01] MEDS ORDERED: NORCO 5-325 TA1 EACH ORAL (20:58)
[2017-08-01] MEDS ORDERED: CLINDAMYCIN HC300 MG ORAL (20:58)
[2017-08-01 21:06] VITALS: BP 150/71
--- NOTE | 2017-08-01 21:27 | Emergency Room Report ---
History of Present Illness General Chief Complaint: Skin Rash/Abscess Source: Patient Present Illness HPI 62-year-old female p/w dental pain for 6 days. Patient states that she has had increased swelling to her right lower teeth for 3 days. Pt reports pain, aching , worse with chewing. Denies fever chills. No purulent drainage. No recent dental work. Patient states that she has to see a dentist which is scheduled on Sunday. Allergies: Coded Allergies: ERYTHROMYCIN BASE (Unverified Allergy, Unknown, 07/25/16) Patient History Past Medical History: see triage record Past Surgical History: none Pertinent Family History: none Last Menstrual Period: NA Now: No Reviewed Nursing Documentation: PMH: Agreed, PSxH: Agreed Nursing Documentation-PMH Hx Cardiac Problems: Yes - HIGH CHOLESTEROL Hx Hypertension: Yes Hx Diabetes: Yes Hx Cancer: No Hx Gastrointestinal Problems: Yes - KIDNEY STONES REMOVAL Hx Dialysis: No - stent in urethra, Hx Neurological Problems: No Hx Cerebrovascular Accident: No Review of Systems All Other Systems: negative except mentioned in HPI Physical Exam Vital Signs Date Time Temp Pulse Resp B/P (MAP) Pulse Ox O2 Delivery O2 Flow Rate FiO2 08/01/17 20:40 98.4 80 18 152/74 98 Room Air Sp02 EP Interpretation: reviewed, normal General Appearance: alert, GCS 15, non-toxic, mild distress Head: normocephalic, atraumatic Eyes: bilateral eye normal inspection, bilateral eye PERRL, bilateral eye EOMI ENT: other - +dental caries, +swelling/redness/edema noted R lowe molars, tender to palpation R jaw as well Neck: normal inspection, full range of motion, supple Respiratory: normal inspection, lungs clear, normal breath sounds, no respiratory distress, no retraction, no wheezing, speaking full sentences, chest symmetrical Cardiovascular #1: normal inspection, regular rate, rhythm, normal capillary refill Cardiovascular #2: 2+ radial (R), 2+ radial (L) Gastrointestinal: normal inspection, non tender, soft, non-distended, no guarding Musculoskeletal: normal inspection, back normal, normal range of motion, non- tender Neurologic: normal inspection, alert, oriented x3, responsive, motor strength/ tone normal, sensory intact, normal gait, speech normal Psychiatric: normal inspection, judgement/insight normal, memory normal Skin: normal inspection, normal color, no rash, warm/dry, well hydrated, normal turgor Medical Decision Making Diagnostic Impression: Primary Impression: Dental infection ER Course 62-year-old female with dental pain DDX: Dental pain 2/2 to abscess Plan: None in the emergency room ER course: Pt stable in ED Disposition: Patient discharged to home. Patient given clindamycin and norco Patient instructed to follow up with dentist in 48 hours without fail. Please note that this Emergency Department Report was dictated using [employer]2nd grade teacher technology software, occasionally this can lead to erroneous entry secondary to interpretation by the dictation equipment Last Vital Signs Date Time Temp Pulse Resp B/P (MAP) Pulse Ox O2 Delivery O2 Flow Rate FiO2 08/01/17 20:40 98.4 80 18 152/74 98 Room Air Disposition: HOME, SELF-CARE Condition: Stable Scripts Hydrocodone Bit/Acetaminophen 5-325* (NORCO 5-325*) 1 Each Tablet 1 TAB ORAL Q6H Y for For Pain, #10 TAB 0 Refills Prov: Annabelle Goff M.D. 08/01/17 Clindamycin Hcl (CLINDAMYCIN HCL) 300 Mg Capsule 300 MG ORAL THREE TIMES A DAY, #21 CAP 0 Refills Prov: Annabelle Goff M.D. 08/01/17 Patient Instructions: Dental Abscess, [id number] Annabelle Goff M.D. Aug 01, 2017 21:27
== END 2017-08-01 21:30 | disposition home or self-care (01) ==
LOC: EMR 21:30
DX: K04.7 Periapical abscess without sinus (principal); I10 Essential (primary) hypertension; E11.9 Type 2 diabetes mellitus without complications
CPT/HCPCS: 99284

== ENCOUNTER 2017-10-15 12:49 | Emergency (ER) | payer MEDICARE, MEDICAID ==
[~2017-10-15] VITALS: Ht 162.6 cm; Wt 120.2 kg
[~2017-10-15 12:49] MED LIST changes: +CLINDAMYCIN HC300 MG ORAL
[2017-10-15] MEDS ORDERED: TIZANIDINE HCL4 MG ORAL (13:21)
[2017-10-15] MEDS ORDERED: LIDOCAINE700 M1 TP (15:15)
--- NOTE | 2017-10-15 15:17 | Diagnostic Imaging Report ---
Indication: Dyspnea Comparison: 07/06/2017 A single view chest radiograph was obtained. Findings: Cardiomediastinal appearance is within normal limits for age. Pulmonary vascularity is appropriate. The diaphragmatic contour is smooth and costophrenic angles are sharp. No pleural effusions are identified. The bones are osteopenic. Impression: No acute findings
[2017-10-15 15:23] VITALS: BP 147/78
--- NOTE | 2017-10-21 07:53 | Emergency Room Report ---
History of Present Illness General Chief Complaint: General Complaint Source: Patient Present Illness HPI Patient is a 62-year-old female who presented after increased lower extremity swelling as well as increased pain to both legs. Patient prior history of chronic pain. She had been reportedly not taking her Lasix for several days. Patient states that she has her medications at home. She denies any fever. She denies any chest pain or shortness of breath. Allergies: Coded Allergies: ERYTHROMYCIN BASE (Unverified Allergy, Unknown, 07/25/16) Patient History Past Medical History: see triage record Reviewed Nursing Documentation: PMH: Agreed, PSxH: Agreed Nursing Documentation-PMH Hx Hypertension: Yes Hx Diabetes: Yes - Neuropathy Hx Cancer: No Hx Gastrointestinal Problems: Yes - KIDNEY STONES REMOVAL Hx Dialysis: No - stent in urethra, History Of Psychiatric Problem: Yes - Panic attack and anxiety disorder Hx Neurological Problems: No Hx Cerebrovascular Accident: No Review of Systems All Other Systems: negative except mentioned in HPI Physical Exam Vital Signs Date Time Temp Pulse Resp B/P (MAP) Pulse Ox O2 Delivery O2 Flow Rate FiO2 10/15/17 13:13 97.8 84 18 137/81 95 97.9 10/15/17 15:23 Room Air Sp02 EP Interpretation: reviewed, normal General Appearance: normal inspection, alert, Chronically Ill Head: atraumatic ENT: normal ENT inspection, hearing grossly normal, normal voice Neck: normal inspection, full range of motion, supple, no bony tend Respiratory: normal inspection, lungs clear, normal breath sounds, no respiratory distress, no retraction, no wheezing Cardiovascular #1: regular rate, rhythm, no edema Gastrointestinal: normal inspection, normal bowel sounds, non tender, soft, no guarding, no hernia Genitourinary: no CVA tenderness Musculoskeletal: normal inspection, back normal, normal range of motion Neurologic: normal inspection, alert, oriented x3, responsive, tree farmer III-XII nml as tested, speech normal Psychiatric: normal inspection, judgement/insight normal, mood/affect normal Skin: normal inspection, normal color, no rash Medical Decision Making Diagnostic Impression: Primary Impression: Pedal edema Additional Impression: Chronic lung disease ER Course Patient presented for leg pain. Differential diagnosis included but was not limited to neuropathy, fracture, contusion, vascular insufficiency, aortic aneurysm, cellulitis.The patient reports having prior history of neuropathy. This appears to be the current situation. Patient has good pulses. Patient given Lasix. Patient was also given a lidocaine patch due to chronic pain. The patient is advised to follow up with primary care doctor in 1-2 days. Patient is advised to return if any worsening condition or if any changes in status that are concerning. This report is dictated with [employer] leather tacker software which may occasionally lead to discrepancies related to use of this software. Last Vital Signs Date Time Temp Pulse Resp B/P (MAP) Pulse Ox O2 Delivery O2 Flow Rate FiO2 10/15/17 15:23 71 14 147/78 100 Room Air 10/15/17 13:13 97.8 97.9 Status: improved Disposition: HOME, SELF-CARE Condition: Stable Scripts Lidocaine (Lidocaine) 1 Each Adh..patch 700 MG TP DAILY, #14 PATCH Prov: Yandel Olmedo 10/15/17 Referrals: NON PHYSICIAN (PCP) Patient Instructions: Edema, [id number] Yandel Olmedo Oct 21, 2017 07:53
== END 2017-10-15 15:25 | disposition home or self-care (01) ==
LOC: EMR 13:35
DX: R60.0 Localized edema (principal); M79.605 Pain in left leg; M79.604 Pain in right leg; J98.4 Other disorders of lung; I10 Essential (primary) hypertension; E11.40 Type 2 diabetes mellitus with diabetic neuropathy, unspecified; F41.9 Anxiety disorder, unspecified; Z90.5 Acquired absence of kidney; Z88.1 Allergy status to other antibiotic agents
CPT/HCPCS: 71045; 99283

== ENCOUNTER 2018-07-04 18:57 | Emergency (ER) | payer MEDICARE, MEDICAID ==
[~2018-07-04] VITALS: Ht 162.6 cm; Wt 120.2 kg
[~2018-07-04 18:57] MED LIST changes: +LIDOCAINE700 M1 TP; +TIZANIDINE HCL4 MG ORAL
[2018-07-04 19:11] VITALS: BP 153/74
[2018-07-04] MEDS ORDERED: Lidocaine HCl 2% Jelly 5ml Tube TOPIC ONE (19:30)
[2018-07-04] MEDS ORDERED: AMOXICILLIN500 MG ORAL (19:35)
[2018-07-04] MEDS ORDERED: LD2JL30 TOPIC (19:35)
--- NOTE | 2018-07-04 19:35 | Emergency Room Report ---
History of Present Illness General Chief Complaint: General Complaint Source: Patient Present Illness HPI 63-year-old female patient presents ER complaining of left-sided gum pain. Patient reports that pain is been present for the past few days increasing in intensity. Denies fever, chest pain, shortness of breath, vomiting. Reports that she thinks she may have "an abscess." reports headache symptoms have developed since that time. Reports taking Tylenol for relief of symptoms. Denies other acute symptoms. Allergies: Coded Allergies: ERYTHROMYCIN BASE (Unverified Allergy, Unknown, 07/25/16) Patient History Past Medical History: see triage record Last Menstrual Period: 2004 Now: No : 4 Para: 2 Reviewed Nursing Documentation: PMH: Agreed; PSxH: Agreed Nursing Documentation-PMH Past Medical History: No History, Except For Hx Hypertension: Yes Hx COPD: Yes - copd Hx Diabetes: Yes - Neuropathy Hx Cancer: No Hx Gastrointestinal Problems: Yes - KIDNEY STONES REMOVAL Hx Dialysis: No - stent in urethra, Hx Neurological Problems: No Hx Cerebrovascular Accident: No Review of Systems All Other Systems: negative except mentioned in HPI Physical Exam Vital Signs Date Time Temp Pulse Resp B/P (MAP) Pulse Ox O2 Delivery O2 Flow Rate FiO2 07/04/18 19:02 98.2 72 16 153/74 95 Sp02 EP Interpretation: reviewed, normal General Appearance: well appearing, no apparent distress, alert, GCS 15, non- toxic Head: normocephalic, atraumatic, other - no TTP over temporal region Eyes: bilateral eye normal inspection, bilateral eye PERRL ENT: hearing grossly normal, normal pharynx, no angioedema, normal voice, TMs + canals normal, uvula midline, moist mucus membranes, other - left posterior gum: Small 3-4 mm ulcerative type lesion with surrounding erythema, no fluctuance or induration; tooth TTP, mild erythema noted at gum, caries noted, no flutcuance or indruation Neck: full range of motion Respiratory: lungs clear, normal breath sounds, no rhonchi, no respiratory distress, no accessory muscle use, no wheezing, speaking full sentences Cardiovascular #1: regular rate, rhythm, no edema Musculoskeletal: back normal, digits/nails normal, gait/station normal, normal range of motion, non-tender Neurologic: alert, oriented x3, responsive, data entry technician III-XII nml as tested, motor strength/tone normal, sensory intact, other - no facial droop Psychiatric: mood/affect normal Skin: no rash Lymphatic: no adenopathy Medical Decision Making PA Attestation Dr. Lucas is my supervising Physician whom patient management has been discussed with. Diagnostic Impression: Primary Impression: Gum inflammation Additional Impression: Toothache ER Course Pt. presents to the ED c/o dental pain. Ddx considered but are not limited to cellulitis, abscess, dental caries, gingivitis, temporal arteritis, trigeminal neuralgia. Does not require imaging at this time. Vital signs: are WNL, pt. is afebrile ED INTERVENTIONS: Pain medication provided in the ER. physical exam shows small ulcer type lesion, will provide patient with lidocaine jelly, pleasant affected area. Tooth TTP, mild surrounding erythema, will provide patient with antibiotics to cover for possible infection, and should patient follow-up with dentist to discuss further treatment and management. Nontoxic appearing, speaking full sentences, no active draining, mild edema, no trismus or vision changes. No signs of abscess, no fluctuance, erythema or edema. follow-up with dentist. Will provide abx for infection to cover for possible infection. provided with contact information for dentists. F/u with PCP and dentist for further treatment. ER precautions given. Take Tylenol for pain symptoms. DISCHARGE: -Rx provided for Amoxicillin -Rx provided for lidocaine jelly At this time pt. is stable for d/c to home. Patient is resting comfortably, in no acute distress, nontoxic appearing, talking and smiling without difficulty. Will provide printed patient care instructions and any necessary prescriptions. Care plan and follow up instructions have been discussed with the patient prior to discharge. Patient instructed to follow-up with primary care provider in 2 - 3 days. Followup with dentist. Patient questions asked and answered. Patient reports understanding and agreement to treatment plan. ER precautions given. Patient instructed to return to ER immediately for any new or worsening of symptoms including but not limited to fever, worsening of pain symptoms, worsening of erythema, red streaking. - Please note that this Emergency Department Report was dictated using [employer] technology software, occasionally this can lead to erroneous entry secondary to interpretation by the dictation equipment. Last Vital Signs Date Time Temp Pulse Resp B/P (MAP) Pulse Ox O2 Delivery O2 Flow Rate FiO2 07/04/18 19:02 98.2 72 16 153/74 95 Status: improved Disposition: HOME, SELF-CARE Condition: Stable Scripts Amoxicillin* (AMOXIL*) 500 Mg Capsule 500 MG ORAL EVERY 8 HOURS for 7 Days, #21 CAP Prov: Daren Davis 07/04/18 Lidocaine HCL 2% Jelly* (Lidocaine Jelly 2%*) 5 Ml Jel.pf.kelsea 5 ML TOPIC DAILY, #5 ML Prov: Daren Davis 07/04/18 Patient Instructions: Dental Pain, [id number], Stomatitis, [id number] Additional Instructions: Followup with primary care provider in 3 -5 days. Followup with dentist in 1-3 days. Take medications as directed. Take Tylenol for pain symptoms. Patient questions asked and answered. ER precautions given, patient instructed to return to ER immediately for any new or worsening of symptoms. Daren Davis Jul 04, 2018 19:35
[2018-07-04 19:46] VITALS: BP 151/71
== END 2018-07-04 19:46 | disposition home or self-care (01) ==
LOC: EMR 19:15
DX: K05.10 Chronic gingivitis, plaque induced (principal); K08.89 Other specified disorders of teeth and supporting structures; J44.9 Chronic obstructive pulmonary disease, unspecified; I10 Essential (primary) hypertension; E11.40 Type 2 diabetes mellitus with diabetic neuropathy, unspecified
CPT/HCPCS: 99283

== ENCOUNTER 2018-09-05 22:55 | Emergency (ER) | payer MEDICARE, MEDICAID ==
[~2018-09-05] VITALS: Ht 162.6 cm; Wt 127.0 kg
[~2018-09-05 22:55] MED LIST changes: +AMOXICILLIN500 MG ORAL; +LD2JL30 TOPIC
--- NOTE | 2018-09-05 23:05 | NUR ---
ED Nurse Note: Pt complains of SOB for x4 days. Reports upper medial abdominal pain 02/10. Pt AO4. NAD. VSS. RT & imaging at bedside.
[2018-09-05] MEDS ORDERED: VENTOLIN HFA18 GM INH (23:10)
[2018-09-05] MEDS ORDERED: JANUVIA25 MG ORAL (23:10)
[2018-09-05] MEDS ORDERED: OMEGA 3 1,0001 EACH PO (23:10)
[2018-09-05] MEDS ORDERED: COMBIVENT RESPIM4 GM IH (23:10)
[2018-09-05] MEDS ORDERED: Solu-MEDROL 125mg Inj IVP ONE (23:15)
[2018-09-05] MEDS ORDERED: Albuterol ud Inhalation HHN ONE (23:15)
[2018-09-05] MEDS ORDERED: Ipratropium 0.02% Inh Soln 2.5ml UD HHN ONE (23:15)
--- NOTE | 2018-09-05 23:16 | Emergency Room Report ---
History of Present Illness General Chief Complaint: Dyspnea/Respdistress Source: Patient, Medical Record Present Illness HPI Is a 63-year-old female with a history of high blood pressure and COPD. She presents with chief complaint of shortness of breath. Onset for 4 days ago. [place] and it was [place]. It triggered her COPD. She's been using her inhaler without much relief. Worse with exertion. Worse with lying flat. Better with rest. Better with her inhaler. Has chest tightness because of the shortness of breath. Coughing but nonproductive in nature. No edema. No nausea no vomiting. No diaphoresis. No radiation. Allergies: Coded Allergies: ERYTHROMYCIN BASE (Unverified Allergy, Unknown, 07/25/16) Patient History Past Medical History: see triage record, old chart reviewed, HTN, COPD Past Surgical History: other Pertinent Family History: none Social History: Denies: smoking Last Menstrual Period: january 2005 Now: No Immunizations: other Reviewed Nursing Documentation: PMH: Agreed; PSxH: Agreed Nursing Documentation-PMH Hx Hypertension: Yes Hx COPD: Yes - copd Hx Diabetes: Yes - Neuropathy Hx Cancer: No Hx Gastrointestinal Problems: Yes - KIDNEY STONES REMOVAL Hx Dialysis: No - stent in urethra, Hx Neurological Problems: No Hx Cerebrovascular Accident: No Review of Systems Eye: Denies: eye pain, blurred vision ENT: Denies: ear pain, nose congestion, throat swelling Respiratory: Reports: cough, shortness of breath Cardiovascular: Denies: chest pain, palpitations Gastrointestinal: Denies: abdominal pain, diarrhea, nausea, vomiting Musculoskeletal: Denies: back pain, joint pain Skin: Denies: rash Neurological: Denies: headache, numbness Endocrine: Denies: increased thirst, increased urine Hematologic/Lymphatic: Denies: easy bruising All Other Systems: negative except mentioned in HPI Physical Exam Vital Signs Date Time Temp Pulse Resp B/P (MAP) Pulse Ox O2 Delivery O2 Flow Rate FiO2 09/05/18 22:58 99.0 79 16 152/89 95 Room Air vitals with high blood pressure Sp02 EP Interpretation: reviewed, normal General Appearance: well appearing, alert, mild distress, obese Head: normocephalic, atraumatic Eyes: bilateral eye PERRL, bilateral eye EOMI ENT: hearing grossly normal, normal pharynx Neck: full range of motion, supple, no meningismus Respiratory: chest non-tender, respiratory distress - Mild, wheezing Cardiovascular #1: regular rate, rhythm, no murmur Gastrointestinal: normal bowel sounds, non tender, no mass, no organomegaly, no bruit, non-distended Musculoskeletal: back normal, gait/station normal, normal range of motion Psychiatric: mood/affect normal Skin: warm/dry Medical Decision Making Diagnostic Impression: Primary Impression: COPD with exacerbation ER Course Patient with COPD exacerbation. Most likely secondary to viral illness. No evidence of ACS, PE, dissection to name a few. No evidence of CHF. Better after breathing treatment. Wheezing cleared. We'll discharge home. EKG Diagnostic Results Rate: normal Rhythm: NSR ST Segments: no acute changes Rhythm Strip Diag. Results Rhythm Strip Time: 23:50 EP Interpretation: yes Rate: 75 Rhythm: NSR, no PVC's, no ectopy Chest X-Ray Diagnostic Results Chest X-Ray Diagnostic Results : Chest X-Ray Ordered: Yes # of Views/Limited/Complete: 1 View Indication: Shortness of Breath EP Interpretation: Yes Interpretation: no consolidation, no effusion, no pneumothorax, no acute cardiopulmonary disease Impression: No acute disease Electronically Signed by: Abhay Stern MD Last Vital Signs Date Time Temp Pulse Resp B/P (MAP) Pulse Ox O2 Delivery O2 Flow Rate FiO2 09/05/18 22:58 99.0 79 16 152/89 95 Room Air Status: improved Disposition: HOME, SELF-CARE Condition: Stable Scripts Codeine/Promethazine Hcl* (PROMETHAZINE-CODEINE SYRUP*) 118 Ml Syrup 10 ML ORAL Q6H PRN for For Cough, #240 ML 0 Refills Prov: Abhay Stern MD 09/06/18 Prednisone* (PREDNISONE*) 20 Mg Tablet 40 MG ORAL DAILY, #10 TAB Prov: Abhay Stern MD 09/06/18 Patient Instructions: Chronic Obstructive Pulmonary Disease Exacerbation Additional Instructions: Avoid smoke. Follow-up with your doctor in 2-3 days if not better. Return if worse. Abhay Stern MD Sep 05, 2018 23:16
--- NOTE | 2018-09-05 23:30 | NUR ---
ED Nurse Note: IV access established. Urine and blood sent down to lab.
[2018-09-06 00:01] LABS: BASOPHILS % (AUTO) 0.8 % (0.0-2.0); EOSINOPHILS % (AUTO) 2.1 % (0.0-3.0); HEMATOCRIT 36.7 % (37.0-47.0); HEMOGLOBIN 12.5 G/DL (12.0-16.0); LYMPHOCYTES % (AUTO) 30.2 % (20.0-45.0); MEAN CORPUSCULAR VOLUME 84 FL (80-99); MONOCYTES % (AUTO) 5.8 % (1.0-10.0); NEUTROPHILS % (AUTO) 61.2 % (45.0-75.0); PLATELET COUNT 225 K/UL (150-450); RED BLOOD COUNT 4.38 M/UL (4.20-5.40); WHITE BLOOD COUNT 9.5 K/UL (4.8-10.8)
[2018-09-06 00:11] LABS: ANION GAP 9 mmol/L (5-15); BLOOD UREA NITROGEN 13 mg/dL (7-18); CALCIUM 9.9 MG/DL (8.5-10.1); CARBON DIOXIDE 28 MMOL/L (21-32); CHLORIDE 102 MMOL/L (98-107); CREATININE 1.2 MG/DL (0.55-1.30); POTASSIUM 3.2 MMOL/L (3.5-5.1); SODIUM 139 MMOL/L (136-145)
[2018-09-06 00:25] VITALS: BP 121/59
[2018-09-06 00:25] LABS: ALANINE AMINOTRANSFERASE 66 U/L (12-78); ALBUMIN 4.1 G/DL (3.4-5.0); ALBUMIN/GLOBULIN RATIO 1.1 (1.0-2.7); ALKALINE PHOSPHATASE 103 U/L (46-116); ASPARTATE AMINO TRANSFERASE 32 U/L (15-37); BILIRUBIN,TOTAL 0.8 MG/DL (0.2-1.0); CKMB 1.9 NG/ML (0.0-3.6); CREATINE KINASE 159 U/L (26-308)
[2018-09-06] MEDS ORDERED: PREDNISONE20 MG ORAL (00:34)
[2018-09-06] MEDS ORDERED: PROMETHAZINE-C118 M1 ORAL (00:35)
[2018-09-06 00:45] VITALS: BP 121/59
--- NOTE | 2018-09-06 00:45 | NUR ---
ED Nurse Note: Patient cleared for discharge per ERMD. AO4. NAD. VSS. Patient given prescriptions and discharge instructions; verbalized understanding. ID band removed. Patient ambulated out with all personal belongings with steady gait.
--- NOTE | 2018-09-07 15:48 | Diagnostic Imaging Report ---
Indication: Dyspnea Comparison: 10/15/2017 A single view chest radiograph was obtained. Findings: Cardiomediastinal appearance is within normal limits for age. The lungs are clear. Pulmonary vascularity is appropriate. The diaphragmatic contour is smooth and costophrenic angles are sharp. No pleural effusions are identified. Vertebral endplate osteophytes noted within the thoracic spine. Impression: No acute findings
== END 2018-09-06 00:45 | disposition home or self-care (01) ==
LOC: EMR 23:30
DX: J44.1 Chronic obstructive pulmonary disease with (acute) exacerbation (principal); I10 Essential (primary) hypertension; Z87.442 Personal history of urinary calculi
CPT/HCPCS: 36415; 71045; 80053; 80307; 82550; 82553; 83880; 84484; 85025; 93005; 94640; 94664; 96374; 99284; J2930

== ENCOUNTER 2018-09-28 19:56 | Emergency (ER) | payer MEDICARE, MEDICAID ==
[~2018-09-28] VITALS: Ht 162.6 cm; Wt 124.7 kg
[~2018-09-28 19:56] MED LIST changes: +COMBIVENT RESPIM4 GM IH; +OMEGA 3 1,0001 EACH PO; +PROMETHAZINE-C118 M1 ORAL; +VENTOLIN HFA18 GM INH
[2018-09-28 20:10] VITALS: BP 115/60
--- NOTE | 2018-09-28 20:10 | NUR ---
ED Nurse Note: Pt arrived ED from home, c/o SOB today and on and off for 6 days. Pt is A/o x4, Vital signs stable at this time, waiting for orders.
[2018-09-28] MEDS: Albuterol ud Inhalation HHN SCH ×3 (20:25→21:16)
[2018-09-28] MEDS: Ipratropium 0.02% Inh Soln 2.5ml UD HHN SCH ×3 (20:25→21:16)
[2018-09-28] MEDS ORDERED: AMOXICILLIN500 MG ORAL (21:09)
[2018-09-28] MEDS ORDERED: VENTOLIN HFA18 GM INH (21:09)
[2018-09-28] MEDS ORDERED: COMBIVENT RESPIM4 GM IH (21:09)
[2018-09-28] MEDS ORDERED: PROMETHAZINE-C118 M1 ORAL (21:09)
[2018-09-28] MEDS ORDERED: PREDNISONE20 MG ORAL (21:09)
--- NOTE | 2018-09-28 21:57 | NUR ---
ED Nurse Note: Pt has seen by Esther, all orders carried out, breathing treatment given by RT. Pt feels better at this time. D/c instruction and prescription given to Pt and verbalized understanding. ID band removed. Pt d/c from ED with steady gait with all her belongings .
[2018-09-28 22:30] VITALS: BP 118/65
--- NOTE | 2018-09-29 15:09 | Emergency Room Report ---
History of Present Illness General Chief Complaint: Upper Respiratory Illness Source: Patient Present Illness HPI 63-year-old female presents ED for evaluation. Complaining of cough and shortness of breath for the last 6 days. History of COPD. States she ran out of her inhaler. Cough is dry. Denies fevers or chills. Denies sick contacts or recent travel. Denies chest pain. No other aggravating relieving factors. Denies any other associated symptoms Allergies: Coded Allergies: ERYTHROMYCIN BASE (Verified Allergy, Unknown, 09/28/18) Patient History Past Medical History: DM, HTN, COPD Pertinent Family History: none Social History: Denies: smoking, alcohol use, drug use Now: No Immunizations: UTD Reviewed Nursing Documentation: PMH: Agreed; PSxH: Agreed Nursing Documentation-PMH Past Medical History: No Stated History Hx Hypertension: Yes Hx COPD: Yes - copd Hx Diabetes: Yes - Neuropathy Hx Cancer: No Hx Gastrointestinal Problems: Yes - KIDNEY STONES REMOVAL Hx Dialysis: No - stent in urethra, Hx Neurological Problems: No Hx Cerebrovascular Accident: No Review of Systems All Other Systems: negative except mentioned in HPI Physical Exam Vital Signs Date Time Temp Pulse Resp B/P (MAP) Pulse Ox O2 Delivery O2 Flow Rate FiO2 09/28/18 19:57 98.1 81 22 157/88 96 Room Air 09/28/18 20:10 97 Sp02 EP Interpretation: reviewed, normal General Appearance: no apparent distress, alert, GCS 15, non-toxic Head: normocephalic, atraumatic Eyes: bilateral eye normal inspection, bilateral eye PERRL ENT: hearing grossly normal, normal pharynx, no angioedema, normal voice Neck: full range of motion, supple/symm/no masses Respiratory: chest non-tender, decreased breath sounds, speaking full sentences , wheezing Cardiovascular #1: regular rate, rhythm, no edema Cardiovascular #2: 2+ carotid (R), 2+ carotid (L), 2+ radial (R), 2+ radial (L) , 2+ dorsalis pedis (R), 2+ dorsalis pedis (L) Gastrointestinal: normal bowel sounds, non tender, soft, non-distended, no guarding, no rebound Rectal: deferred Genitourinary: normal inspection, no CVA tenderness Musculoskeletal: back normal, gait/station normal, normal range of motion, non- tender Neurologic: alert, oriented x3, responsive, motor strength/tone normal, sensory intact, speech normal Psychiatric: judgement/insight normal, memory normal, mood/affect normal, no suicidal/homicidal ideation Reflexes: 3+ bicep (R), 3+ bicep (L), 3+ tricep (R), 3+ tricep (L), 3+ knee (R) , 3+ knee (L) Skin: normal color, no rash, warm/dry, well hydrated Lymphatic: no adenopathy Medical Decision Making Diagnostic Impression: Primary Impression: COPD (chronic obstructive pulmonary disease) Qualified Codes: J44.9 - Chronic obstructive pulmonary disease, unspecified ER Course Hospital Course 63-year-old female presents to ED complaining of cough, wheezing. h/o COPD Differential diagnoses include: URI, bronchitis, asthma/COPD, pneumonia Clinical course Patient placed on stretcher. After initial history and physical I ordered prednisone and nebulizer treatment. Upon reassessment patient states cough and symptoms have improved. Discussed findings with patient. Safe for discharge close outpatient follow- up. Given history of COPD we'll prescribe antibiotics. States she has a PMD Diagnosis -COPD Stable and discharged home with prescriptions for Rx amoxicillin, prednisone, promethazine/codeine, albuterol. Instructed to followup with PMD. Return to ED if symptoms recur or worsen Last Vital Signs Date Time Temp Pulse Resp B/P (MAP) Pulse Ox O2 Delivery O2 Flow Rate FiO2 09/28/18 22:30 98.1 85 18 118/65 100 Room Air 21 Status: improved Disposition: HOME, SELF-CARE Condition: Stable Scripts Amoxicillin* (AMOXIL*) 500 Mg Capsule 500 MG ORAL THREE TIMES A DAY, #21 CAP Prov: Geovanny Mccarty MD 09/28/18 Codeine/Promethazine Hcl* (PROMETHAZINE-CODEINE SYRUP*) 118 Ml Syrup 10 ML ORAL Q6H PRN for For Cough, #240 ML 0 Refills Prov: Geovanny Mccarty MD 09/28/18 Prednisone* (PREDNISONE*) 20 Mg Tablet 40 MG ORAL DAILY, #10 TAB Prov: Geovanny Mccarty MD 09/28/18 Albuterol Sulfate (VENTOLIN HFA) 18 Gm Hfa.aer.ad 2 PUFFS INH EVERY 6 HOURS, #18 GM 0 Refills Prov: Geovanny Mccarty MD 09/28/18 Ipratropium/Albuterol Sulfate (Combivent Respimat Inhal [place]) 4 Gm Mist.inhal 4 GM IH QID, #4 GM Prov: Geovanny Mccarty MD 09/28/18 Patient Instructions: Chronic Obstructive Pulmonary Disease Exacerbation, Easy- to-Read Geovanny Mccarty MD Sep 29, 2018 15:09
== END 2018-09-28 22:30 | disposition home or self-care (01) ==
LOC: EMR 20:17
DX: J44.9 Chronic obstructive pulmonary disease, unspecified (principal); I10 Essential (primary) hypertension; E11.40 Type 2 diabetes mellitus with diabetic neuropathy, unspecified; Z87.442 Personal history of urinary calculi
CPT/HCPCS: 94640; 99284; J7512

== ENCOUNTER 2018-12-19 19:13 | Emergency (ER) | payer MEDICARE, MEDICAID ==
[~2018-12-19] VITALS: Ht 162.6 cm; Wt 124.7 kg
--- NOTE | 2018-12-19 19:35 | NUR ---
ED Nurse Note: RECIEVED PT FROM HOME HERE WITH C/O RIGHT KNEE PAIN AND MILD SOB WITH COPD, PT IS AWAKE, ALERT AND ORIENTED X 4, AMBULATORY WITH STEADY GAIT, DENIES CP, AND O2 SAT=97% ON RA, PT IMMEDIATELY GOWNED, URINE SAMPLE COLLECTED AND PLACED ON CARDIAC MONITORING, WILL RESUME CARE ORDERED AND CLOSELY MONITOR.
[2018-12-19] MEDS ORDERED: Acetaminophen 500mg (ES) tab ORAL ONE (19:45)
[2018-12-19] MEDS ORDERED: Ipratropium 0.02% Inh Soln 2.5ml UD HHN ONE (19:45)
[2018-12-19] MEDS ORDERED: Solu-MEDROL 125mg Inj IVP ONE (19:45)
[2018-12-19] MEDS ORDERED: Albuterol ud Inhalation HHN ONE (19:45)
[2018-12-19 20:27] LABS: ANION GAP 11 mmol/L (5-15); BASOPHILS % (AUTO) 1.2 % (0.0-2.0); BLOOD UREA NITROGEN 17 mg/dL (7-18); CALCIUM 9.7 MG/DL (8.5-10.1); CARBON DIOXIDE 27 MMOL/L (21-32); CHLORIDE 106 MMOL/L (98-107); CREATININE 1.2 MG/DL (0.55-1.30); EOSINOPHILS % (AUTO) 2.1 % (0.0-3.0); HEMATOCRIT 35.6 % (37.0-47.0); HEMOGLOBIN 11.8 G/DL (12.0-16.0); LYMPHOCYTES % (AUTO) 23.2 % (20.0-45.0); MEAN CORPUSCULAR VOLUME 84 FL (80-99); MONOCYTES % (AUTO) 7.3 % (1.0-10.0); NEUTROPHILS % (AUTO) 66.2 % (45.0-75.0); PLATELET COUNT 232 K/UL (150-450); POTASSIUM 3.8 MMOL/L (3.5-5.1); RED BLOOD COUNT 4.25 M/UL (4.20-5.40); SODIUM 144 MMOL/L (136-145); WHITE BLOOD COUNT 9.6 K/UL (4.8-10.8)
[2018-12-19 20:38] LABS: ALANINE AMINOTRANSFERASE 47 U/L (12-78); ALBUMIN 3.5 G/DL (3.4-5.0); ALBUMIN/GLOBULIN RATIO 0.8 (1.0-2.7); ALKALINE PHOSPHATASE 81 U/L (46-116); ASPARTATE AMINO TRANSFERASE 26 U/L (15-37); BILIRUBIN,TOTAL 0.9 MG/DL (0.2-1.0)
[2018-12-19 20:57] LABS: APPEARANCE,URINE CLEAR; BILIRUBIN, URINE NEGATIVE (NEGATIVE); COLOR,URINE YELLOW; GLUCOSE, URINE (UA) NEGATIVE (NEGATIVE); KETONES,URINE NEGATIVE (NEGATIVE); LEUKOCYTE ESTERASE ,URINE 1+ (NEGATIVE); NITRITE,URINE NEGATIVE (NEGATIVE); PH,URINE 5 (4.5-8.0); PROTEIN,URINE 1+ (NEGATIVE); UROBILINOGEN,URINE NORMAL MG/DL (0.0-1.0)
--- NOTE | 2018-12-19 21:05 | Emergency Room Report ---
History of Present Illness General Chief Complaint: Upper Respiratory Illness Source: Patient Present Illness HPI Patient has a history of COPD presenting with shortness of breath and upper back pain. This is been worsening over the last 2 days. She denies chills or fever. There is no productive phlegm. She says her doctor has prescribed a nebulizer but has not arrived yet. She has been using her albuterol inhaler with some relief but still has wheezing and dyspnea on exertion. She denies any calf pain or edema. She does have pain in her upper back more on the right- hand side on the inner side of her scapula. This is worsened with coughing. Is also somewhat positional. She states she ran out of her prednisone and feels that this is what she needs at this time. There is no anterior chest pain. The patient had one episode of minimal vomiting during coughing episode yesterday. There is no nausea at this time. There is no change in her bowels. The pain is rated 7/10 burning aching. No dysuria or hematuria. Patient has a history of diabetes but states there is been no polyuria or polydipsia. Allergies: Coded Allergies: ERYTHROMYCIN BASE (Verified Allergy, Unknown, 09/28/18) Patient History Past Medical History: see triage record Past Surgical History: T+A, other - Knee surgery, uterine cyst removal Social History: Denies: smoking Social History Narrative Cares for her father she dropped him off for evaluation at the OR. Last Menstrual Period: 2004 Now: No Reviewed Nursing Documentation: PMH: Agreed; PSxH: Agreed Nursing Documentation-PMH Past Medical History: No History, Except For Hx Hypertension: Yes Hx COPD: Yes - copd Hx Diabetes: Yes - Neuropathy Hx Cancer: No Hx Gastrointestinal Problems: Yes - KIDNEY STONES REMOVAL Hx Dialysis: No - stent in urethra, Hx Neurological Problems: No Hx Cerebrovascular Accident: No Review of Systems All Other Systems: negative except mentioned in HPI Physical Exam Vital Signs Date Time Temp Pulse Resp B/P (MAP) Pulse Ox O2 Delivery O2 Flow Rate FiO2 12/19/18 19:19 98.6 76 22 144/79 96 Room Air 12/19/18 20:13 21 Sp02 EP Interpretation: reviewed, normal General Appearance: well appearing, no apparent distress, GCS 15 Head: normocephalic Eyes: bilateral eye normal inspection, bilateral eye PERRL ENT: moist mucus membranes Neck: supple Respiratory: no respiratory distress, wheezing, expiration, other - Right- sided upper back muscle tenderness to palpation with tightness Cardiovascular #1: regular rate, rhythm, no edema Cardiovascular #2: 2+ radial (R) Gastrointestinal: normal inspection, normal bowel sounds, non tender, no mass, non-distended Genitourinary: no CVA tenderness Musculoskeletal: gait/station normal, normal range of motion, no calf tenderness, Naima's Sign negative Neurologic: alert, oriented x3, grossly normal Psychiatric: mood/affect normal Skin: normal inspection, warm/dry Medical Decision Making Diagnostic Impression: Primary Impression: COPD exacerbation Additional Impression: Acute back pain Qualified Codes: M54.6 - Pain in thoracic spine ER Course Patient presents with cough and wheezing with 30 back pain with a cough. Differential includes COPD exacerbation, pneumonia, acute coronary syndrome, muscle spasm amongst others. Patient will be evaluated with EKG, chest x-ray and labs. We'll be treated with breathing treatments, solumedrol and Tylenol as she is driving on her own at this time. EKG with sinus rhythm rate 65 no injury. Chest x-ray no infiltrates. Labs with normal white count and CMP. Urinalysis clear. Patient improved with Solu-Medrol and treatments. She reports the pain is improved to me although to the nurse apparently she still rated at 7/10. Discussed treatment plan with patient. Also the need for close outpatient follow-up. She was advised to return if she is not doing well. Patient stable for outpatient observation and treatment. Laboratory Tests Test 12/19/18 19:40 12/19/18 20:00 Urine Color Yellow Urine Appearance Clear Urine pH 5 (4.5-8.0) Urine Specific [place] 1.025 (1.005-1.035) Urine Protein 1+ (NEGATIVE) H Urine Glucose (UA) Negative (NEGATIVE) Urine Ketones Negative (NEGATIVE) Urine Blood 2+ (NEGATIVE) H Urine Nitrite Negative (NEGATIVE) Urine Bilirubin Negative (NEGATIVE) Urine Urobilinogen Normal MG/DL (0.0-1.0) Urine Leukocyte Esterase 1+ (NEGATIVE) H Urine RBC 2-4 /HPF (0 - 2) H Urine WBC 0-2 /HPF (0 - 2) Urine Squamous Epithelial Cells Few /LPF (NONE/OCC) Urine Bacteria Few /HPF (NONE) White Blood Count 9.6 K/UL (4.8-10.8) Red Blood Count 4.25 M/UL (4.20-5.40) Hemoglobin 11.8 G/DL (12.0-16.0) L Hematocrit 35.6 % (37.0-47.0) L Mean Corpuscular Volume 84 FL (80-99) Mean Corpuscular Hemoglobin 27.7 PG (27.0-31.0) Mean Corpuscular Hemoglobin Concent 33.1 G/DL (32.0-36.0) Red Cell Distribution Width 12.0 % (11.6-14.8) Platelet Count 232 K/UL (150-450) Mean Platelet Volume 7.1 FL (6.5-10.1) Neutrophils (%) (Auto) 66.2 % (45.0-75.0) Lymphocytes (%) (Auto) 23.2 % (20.0-45.0) Monocytes (%) (Auto) 7.3 % (1.0-10.0) Eosinophils (%) (Auto) 2.1 % (0.0-3.0) Basophils (%) (Auto) 1.2 % (0.0-2.0) Sodium Level 144 MMOL/L (136-145) Potassium Level 3.8 MMOL/L (3.5-5.1) Chloride Level 106 MMOL/L (98-107) Carbon Dioxide Level 27 MMOL/L (21-32) Anion Gap 11 mmol/L (5-15) Blood Urea Nitrogen 17 mg/dL (7-18) Creatinine 1.2 MG/DL (0.55-1.30) Estimate Glomerular Filtration Rate 54.9 mL/min (>60) Glucose Level 94 MG/DL (74-106) Calcium Level 9.7 MG/DL (8.5-10.1) Total Bilirubin 0.9 MG/DL (0.2-1.0) Aspartate Amino Transferase (AST) 26 U/L (15-37) Alanine Aminotransferase (ALT) 47 U/L (12-78) Alkaline Phosphatase 81 U/L (46-116) Troponin I Pending Pro-B-Type Natriuretic Peptide 40 pg/mL (0-125) Total Protein 7.8 G/DL (6.4-8.2) Albumin 3.5 G/DL (3.4-5.0) Globulin 4.3 g/dL Albumin/Globulin Ratio 0.8 (1.0-2.7) L EKG Diagnostic Results Rate: normal Rhythm: NSR ST Segments: no acute changes Rhythm Strip Diag. Results EP Interpretation: yes Rhythm: NSR, no PVC's, no ectopy Chest X-Ray Diagnostic Results Chest X-Ray Diagnostic Results : Chest X-Ray Ordered: Yes # of Views/Limited/Complete: 1 View Indication: Other EP Interpretation: Yes Interpretation: no consolidation, no effusion, no pneumothorax Impression: Other Electronically Signed by: Electronically signed by Gordon Llanos MD Last Vital Signs Date Time Temp Pulse Resp B/P (MAP) Pulse Ox O2 Delivery O2 Flow Rate FiO2 12/19/18 21:31 98.6 88 16 136/81 100 Room Air 21 Status: improved Disposition: HOME, SELF-CARE Condition: Improved Scripts Methocarbamol* (ROBAXIN*) 500 Mg Tablet 500 MG PO TID, #10 TAB 0 Refills Prov: Gordon Llanos MD 12/19/18 Hydrocodone Bit/Acetaminophen 5-325* (NORCO 5-325*) 1 Each Tablet 1 TAB ORAL Q6H PRN for For Pain, #10 TAB 0 Refills Prov: Gordon Llanos MD 12/19/18 Prednisone* (PREDNISONE*) 10 Mg Tablet 10 MG ORAL DAILY, #21 TAB 0 Refills 4 po QD X 2, 3 po QD X 2, 2 po QD X 2, 1 po QD X 4 Prov: Gordon Llanos MD 12/19/18 Gordon Llanos MD Dec 19, 2018 21:05
[2018-12-19 21:15] VITALS: BP 136/81
[2018-12-19] MEDS ORDERED: NORCO 5-325 TA1 EACH ORAL (21:15)
[2018-12-19] MEDS ORDERED: ROBAXIN500 MG PO (21:15)
[2018-12-19] MEDS ORDERED: PREDNISONE10 MG ORAL (21:15)
--- NOTE | 2018-12-19 21:15 | NUR ---
ER DISCHARGE NOTE: Patient is cleared to be discharged per ERMD, pt is aox4, on room air, with stable vital signs. pt was given dc and prescription instructions, pt was able to verbalize understanding, pt id band and iv site removed without complications. pt is able to ambulate with steady gait. pt took all belongings.
[2018-12-19 21:31] VITALS: BP 136/81
--- NOTE | 2018-12-20 12:30 | Diagnostic Imaging Report ---
Indication: Chest pain Comparison: 09/05/2018 Technique: Portable AP view of the chest Findings: Heart size and mediastinal contours within normal limits for AP technique and stable compared to the prior exam. There is no focal airspace consolidation. No pleural effusion or pneumothorax. There are degenerative changes in the spine. Impression: No radiographic evidence of acute cardiopulmonary disease.
--- NOTE | 2018-12-20 13:32 | Cardiology Report ---
APPROVED REPORT EKG Measurement Heart [id number] Normal sinus rhythm Normal ECG
== END 2018-12-19 21:30 | disposition home or self-care (01) ==
LOC: EMR 19:58
DX: J44.1 Chronic obstructive pulmonary disease with (acute) exacerbation (principal); M54.6 Pain in thoracic spine; I10 Essential (primary) hypertension; E11.40 Type 2 diabetes mellitus with diabetic neuropathy, unspecified; Z87.442 Personal history of urinary calculi
CPT/HCPCS: 36415; 71045; 80053; 81003; 83880; 84484; 85025; 93005; 94640; 94664; 96374; 99284; J2930

== ENCOUNTER 2019-01-30 20:20 | Emergency (ER) | payer MEDICARE, MEDICAID ==
[~2019-01-30] VITALS: Ht 162.6 cm; Wt 113.4 kg
[~2019-01-30 20:20] MED LIST changes: +PREDNISONE10 MG ORAL
[2019-01-30 20:30] VITALS: BP 146/92
--- NOTE | 2019-01-30 20:38 | NUR ---
ED Nurse Note: Received report. Pt AAOx4, ambulatory, from home, c/o abdominal pain and pain when breathing x 3days. Pt has new stress of mother just passing away and is tomorrow. VS taken. Will assess and carry out ER MD's orders.
[2019-01-30] MEDS ORDERED: Dicyclomine HCl 10mg/5ml oral soln ORAL ONE (20:45)
[2019-01-30] MEDS ORDERED: Albuterol/Ipratropium 3ml neb HHN ONE (21:00)
[2019-01-30] MEDS ORDERED: OMEPRAZOLE20 M2 ORAL (21:33)
[2019-01-30] MEDS ORDERED: NORCO 5-325 TA1 EACH ORAL (21:33)
[2019-01-30] MEDS ORDERED: PREDNISONE20 MG ORAL (21:33)
[2019-01-30 21:52] VITALS: BP 145/77
--- NOTE | 2019-01-30 21:56 | NUR ---
ED Nurse Note: Pt cleared by health care Provider for discharge. DC instructions/prescription was given and explained to pt and verbalized understanding of teachings. All medical deviecs such as ID band removed. Pt is AAO x4, ambulatory and left with all personal belongings.
--- NOTE | 2019-01-31 12:47 | Emergency Room Report ---
History of Present Illness General Chief Complaint: Abdominal Pain Source: Patient Present Illness HPI Patient is a 63-year-old female presented after increased epigastric abdominal pain. Patient reports having sharp pain to the epigastric area. This is been present for several days. Patient had a prior history of COPD and states this feels similar to other times when she has had exacerbations of her COPD. She had previously been on prednisone but had run out of her medications. She states she had a recent in her family. She denies any exertional chest discomfort. She denies any episodes of dark or bloody stools. She had not been vomiting. She had prior history of rectal bleeding. Allergies: Coded Allergies: ERYTHROMYCIN BASE (Verified Allergy, Unknown, 09/28/18) Patient History Past Medical History: see triage record Reviewed Nursing Documentation: PMH: Agreed; PSxH: Agreed Nursing Documentation-PMH Hx Hypertension: Yes Hx COPD: Yes - copd Hx Diabetes: Yes - Neuropathy Hx Cancer: No Hx Gastrointestinal Problems: Yes - KIDNEY STONES REMOVAL Hx Dialysis: No - stent in urethra, Hx Neurological Problems: No Hx Cerebrovascular Accident: No Review of Systems All Other Systems: negative except mentioned in HPI Physical Exam Vital Signs Date Time Temp Pulse Resp B/P (MAP) Pulse Ox O2 Delivery O2 Flow Rate FiO2 01/30/19 20:23 98.2 78 19 143/82 (102) 96 Room Air 01/30/19 21:10 21 Sp02 EP Interpretation: reviewed, normal General Appearance: normal inspection, well appearing, no apparent distress, alert, GCS 15, non-toxic Head: atraumatic ENT: normal ENT inspection, hearing grossly normal, normal voice Neck: normal inspection, full range of motion, supple, no bony tend Respiratory: normal inspection, normal breath sounds, no respiratory distress, no retraction, wheezing Cardiovascular #1: regular rate, rhythm, no edema Gastrointestinal: normal inspection, normal bowel sounds, non tender, soft, no guarding, no hernia Genitourinary: no CVA tenderness Musculoskeletal: normal inspection, back normal, normal range of motion Neurologic: normal inspection, alert, oriented x3, responsive, cost recovery technician III-XII nml as tested, speech normal Psychiatric: normal inspection, judgement/insight normal, mood/affect normal Skin: normal inspection, normal color, no rash Medical Decision Making Diagnostic Impression: Primary Impression: Abdominal pain ER Course . Patient presented for abdominal pain. Differential diagnoses included ischemic bowel, appendicitis, perforated viscus, abdominal aortic aneurysm, inferior myocardial infarction, viral gastroenteritis among others. Patient has a benign exam and does not appear to require any further imaging or laboratory testing at this time. Patient is given a GI cocktail as well as breathing treatment with improvement. She is given prescription for oral steroids. EKG interpreted by me showed normal sinus rhythm without acute ST or T wave changes. This is unchanged from patient's previous EKG from 1 month prior. Patient was noted to have improvement after breathing treatment. Patient will be discharged home. She is advised to follow-up with her primary care physician for recheck. She advised to return if any worsening of condition. Last Vital Signs Date Time Temp Pulse Resp B/P (MAP) Pulse Ox O2 Delivery O2 Flow Rate FiO2 01/30/19 21:52 81 20 145/77 95 Room Air 01/30/19 21:17 21 01/30/19 20:30 98.2 Status: improved Disposition: HOME, SELF-CARE Condition: Stable Scripts Omeprazole (OMEPRAZOLE) 20 Mg Capsule.dr 20 MG ORAL DAILY, #30 CAP Prov: Yandel Olmedo MD 01/30/19 Prednisone* (PREDNISONE*) 20 Mg Tablet 40 MG ORAL DAILY, #10 TAB Prov: Yandel Olmedo MD 01/30/19 Hydrocodone Bit/Acetaminophen 5-325* (NORCO 5-325*) 1 Each Tablet 1 TAB ORAL Q6H PRN for For Pain, #10 TAB 0 Refills Prov: Yandel Olmedo MD 01/30/19 Referrals: NON PHYSICIAN (PCP) Patient Instructions: Abdominal Pain, Adult Additional Instructions: Return if worse. Follow up with your doctor for recheck in 1-2 days. Yandel Olmedo MD January 31, 2019 12:47
== END 2019-01-30 21:55 | disposition home or self-care (01) ==
LOC: EMR 21:20
DX: R10.13 Epigastric pain (principal); E11.40 Type 2 diabetes mellitus with diabetic neuropathy, unspecified
CPT/HCPCS: 93005; 94640; 94664; 99284; J7620

== ENCOUNTER 2019-02-11 22:23 | Emergency (ER) | payer MEDICARE, MEDICAID ==
[~2019-02-11] VITALS: Ht 162.6 cm; Wt 120.2 kg
[~2019-02-11 22:23] MED LIST changes: +OMEPRAZOLE20 M2 ORAL
[2019-02-11 22:49] VITALS: BP 125/74
[2019-02-12] MEDS ORDERED: ALBUTEROL SULF8.5 GM INH (00:09)
[2019-02-12] MEDS ORDERED: PREDNISONE20 MG ORAL (00:09)
[2019-02-12] MEDS ORDERED: Albuterol/Ipratropium 3ml neb HHN ONE (00:15)
[2019-02-12 00:32] VITALS: BP 122/82
[2019-02-12 00:33] VITALS: BP 122/82
--- NOTE | 2019-02-13 05:24 | Emergency Room Report ---
History of Present Illness General Chief Complaint: Upper Respiratory Illness Source: Patient Present Illness HPI Patient is a 63-year-old female presents after increased cough and difficulty with breathing. Patient a prior history of COPD. She had been having increased nonproductive cough. She denies any leg pain or swelling. She reports having some discomfort due to coughing. She had a prior history of similar symptoms in the past and had previously been noted to be somewhat steroid-dependent. She had not been having any fever. Patient denies any hemoptysis. She denies any leg pain or swelling. Allergies: Coded Allergies: ERYTHROMYCIN BASE (Verified Allergy, Unknown, 09/28/18) Patient History Past Medical History: see triage record Last Menstrual Period: n/a Reviewed Nursing Documentation: PMH: Agreed; PSxH: Agreed Nursing Documentation-PMH Past Medical History: No History, Except For Hx Hypertension: Yes Hx COPD: Yes - copd Hx Diabetes: Yes - Neuropathy Hx Cancer: No Hx Gastrointestinal Problems: Yes - KIDNEY STONES REMOVAL Hx Dialysis: No - stent in urethra, Hx Neurological Problems: No Hx Cerebrovascular Accident: No Review of Systems All Other Systems: negative except mentioned in HPI Physical Exam Vital Signs Date Time Temp Pulse Resp B/P (MAP) Pulse Ox O2 Delivery O2 Flow Rate FiO2 02/11/19 22:26 98.2 78 18 120/78 (92) 99 Room Air 02/12/19 00:21 21 General Appearance: well appearing, no apparent distress, alert, GCS 15 Head: normocephalic, atraumatic ENT: hearing grossly normal, normal voice Neck: full range of motion, supple Respiratory: chest non-tender, lungs clear, normal breath sounds, no respiratory distress, speaking full sentences Cardiovascular #1: normal inspection Gastrointestinal: normal inspection Musculoskeletal: normal inspection, no calf tenderness Neurologic: normal inspection, alert, oriented x3, responsive, tsa screener III-XII nml as tested, normal gait Psychiatric: mood/affect normal Skin: no rash Medical Decision Making Diagnostic Impression: Primary Impression: COPD exacerbation ER Course Patient presented for cough. Differential diagnosis include was not limited to bronchitis, pneumonia, COPD. Patient was given breathing treatment was noted to have improvement in her symptoms. She was given prescription for steroids. Patient does not appear to have any evidence of acute infection does not appear to require antibiotics at this time. She advised to follow-up with her primary care physician for recheck she is advised to return if any worsening of condition or other concerns. Last Vital Signs Date Time Temp Pulse Resp B/P (MAP) Pulse Ox O2 Delivery O2 Flow Rate FiO2 02/12/19 00:33 98.1 78 18 122/82 100 Room Air 21 Status: improved Disposition: HOME, SELF-CARE Condition: Stable Scripts Prednisone* (PREDNISONE*) 20 Mg Tablet 40 MG ORAL DAILY, #10 TAB Prov: Yandel Olmedo MD 02/12/19 Albuterol Sulfate* (ALBUTEROL SULFATE MDI*) 8.5 Gm Hfa.aer.ad 2 PUFF INH Q6H, #1 EA 0 Refills Prov: Yandel Olmedo MD 02/12/19 Referrals: NON PHYSICIAN (PCP) Patient Instructions: Chronic Obstructive Pulmonary Disease Yandel Olmedo MD Feb 13, 2019 05:24
== END 2019-02-12 00:34 | disposition home or self-care (01) ==
LOC: EMR 22:50
DX: J44.1 Chronic obstructive pulmonary disease with (acute) exacerbation (principal); Z88.8 Allergy status to other drugs, medicaments and biological substances; I10 Essential (primary) hypertension; Z87.442 Personal history of urinary calculi; E11.40 Type 2 diabetes mellitus with diabetic neuropathy, unspecified
CPT/HCPCS: 94640; 94664; 99284; J7620

== ENCOUNTER 2019-04-11 13:30 | Emergency (ER) | payer MEDICARE, MEDICAID ==
[~2019-04-11] VITALS: Ht 162.6 cm; Wt 122.5 kg
[~2019-04-11 13:30] MED LIST changes: +ALBUTEROL SULF8.5 GM INH
[2019-04-11] MEDS ORDERED: ALBUTEROL SULF8.5 GM INH (13:57)
[2019-04-11] MEDS ORDERED: PREDNISONE50 MG ORAL (13:57)
--- NOTE | 2019-04-11 13:57 | Emergency Room Report ---
History of Present Illness General Chief Complaint: Dyspnea/Respdistress Source: Patient Present Illness HPI 63-year-old female with a history of COPD presents with shortness of breath, started 3 days ago, patient reports that she was unable to get an inhaler or breathing treatments, she states that her last dose of prednisone was 2 months ago, she feels like she is wheezing, no chest pain, she also endorses a cough, no sputum production no fever no chills, patient presents for evaluation. Onset was 3 days ago, severity was moderate, aggravating factors none, alleviating factors inhaler Allergies: Coded Allergies: ERYTHROMYCIN BASE (Verified Allergy, Unknown, 09/28/18) Patient History Past Medical History: see triage record Reviewed Nursing Documentation: PMH: Agreed; PSxH: Agreed Nursing Documentation-PMH Hx Hypertension: Yes Hx COPD: Yes - copd Hx Diabetes: Yes - Neuropathy Hx Cancer: No Hx Gastrointestinal Problems: Yes - KIDNEY STONES REMOVAL Hx Dialysis: No - stent in urethra, Hx Neurological Problems: No Hx Cerebrovascular Accident: No Review of Systems All Other Systems: negative except mentioned in HPI Physical Exam Vital Signs Date Time Temp Pulse Resp B/P (MAP) Pulse Ox O2 Delivery O2 Flow Rate FiO2 04/11/19 13:45 98.4 78 19 138/55 (82) 98 Room Air Sp02 EP Interpretation: reviewed, normal General Appearance: well appearing, no apparent distress, alert Head: normocephalic, atraumatic Eyes: bilateral eye PERRL, bilateral eye EOMI ENT: uvula midline, moist mucus membranes Neck: supple, thyroid normal, supple/symm/no masses Respiratory: no respiratory distress, no retraction, no accessory muscle use, wheezing - Mild wheezing bilaterally Cardiovascular #1: normal peripheral pulses, regular rate, rhythm, no edema, no gallop, no murmur Gastrointestinal: non tender, soft, no guarding, no rebound Musculoskeletal: normal inspection Neurologic: alert, oriented x3 Psychiatric: mood/affect normal Skin: no rash, warm/dry Medical Decision Making Diagnostic Impression: Primary Impression: COPD exacerbation ER Course Patient with acute COPD exacerbation, patient without an inhaler and prednisone , will start patient on duo nebs here, patient is denying any chest pain or dyspnea on exertion, low suspicion for ACS, patient has wheezing on exam. Chest ray is negative for acute processes, no evidence of pneumonia Evaluation 3:22 PM, wheezing significantly improved, will provide patient with a prescription for prednisone and albuterol disposition home with return precautions Chest X-Ray Diagnostic Results Chest X-Ray Diagnostic Results : Chest X-Ray Ordered: Yes # of Views/Limited/Complete: 1 View Indication: Shortness of Breath EP Interpretation: Yes Interpretation: no consolidation, no acute cardiopulmonary disease Impression: No acute disease Electronically Signed by: Otilio Dunbar MD Last Vital Signs Date Time Temp Pulse Resp B/P (MAP) Pulse Ox O2 Delivery O2 Flow Rate FiO2 04/11/19 13:45 98.4 78 19 138/55 (82) 98 Room Air Disposition: HOME, SELF-CARE Condition: Improved Scripts Albuterol Sulfate* (ALBUTEROL SULFATE MDI*) 8.5 Gm Hfa.aer.ad 2 PUFF INH Q4H PRN for cough/wheezing, #1 EA 0 Refills Prov: Otilio Dunbar MD 04/11/19 Prednisone* (PREDNISONE*) 50 Mg Tablet 50 MG ORAL DAILY, #4 TAB 0 Refills Prov: Otilio Dunbar MD 04/11/19 Referrals: [facility] Patient Instructions: Chronic Obstructive Pulmonary Disease Exacerbation Additional Instructions: The patient was provided with discharge instructions, notified to follow-up with a primary care doctor and or specialist in the next 24-48 hours, and to return to the ED if they have worsening of their symptoms. Please note that this report is being documented using [employer] technology. This can lead to erroneous entry secondary to incorrect interpretation by the dictating instrument. Otilio Dunbar MD Apr 11, 2019 13:57
[2019-04-11 14:00] VITALS: BP 138/55
[2019-04-11] MEDS ORDERED: Dexamethasone 4mg/ml vial ORAL ONE (14:00)
[2019-04-11] MEDS: Albuterol ud Inhalation HHN SCH ×3 (14:00→14:30)
[2019-04-11] MEDS: Ipratropium 0.02% Inh Soln 2.5ml UD HHN SCH ×3 (14:00→14:30)
--- NOTE | 2019-04-11 14:00 | NUR ---
ED Nurse Note: pt walked in c/o copd symptoms . states she needs a hhn. awaiting maria de jesus tee
[2019-04-11] MEDS ORDERED: oxyCODONE HCL/Acetaminophen 5/325mg ORAL ONE (15:00)
--- NOTE | 2019-04-11 16:00 | Diagnostic Imaging Report ---
Indication: Cough Comparison: 12/19/2018 Technique: Portable AP view of the chest Findings: Heart size and mediastinal contours within normal limits for AP technique and stable compared to the prior exam. There is no focal airspace consolidation. No pleural effusion or pneumothorax. No radiographic evidence of pulmonary edema. There are degenerative changes in the spine. No acute osseous abnormality. Impression: No radiographic evidence of acute cardiopulmonary disease. Specifically, no focal airspace consolidation as questioned clinically. No significant interval change compared to the prior exam.
[2019-04-11 16:10] VITALS: BP 135/58
--- NOTE | 2019-04-11 16:15 | NUR ---
ED Nurse Note: meds well tolerated pt ambulated to restroom NAD awaiting d/c forms.
--- NOTE | 2019-04-11 17:10 | NUR ---
ER DISCHARGE NOTE: Patient is cleared to be discharged per ERMD, pt is aox4, on room air, with stable vital signs. pt was given dc and prescription instructions, pt was able to verbalize understanding, pt id band and removed without complications. pt is able to ambulate with steady gait. pt took all belongings.
== END 2019-04-11 16:20 | disposition home or self-care (01) ==
LOC: EMR 16:18
DX: J44.1 Chronic obstructive pulmonary disease with (acute) exacerbation (principal); E11.40 Type 2 diabetes mellitus with diabetic neuropathy, unspecified; Z87.442 Personal history of urinary calculi; Z88.1 Allergy status to other antibiotic agents
CPT/HCPCS: 71045; 94640; 94664; 99284; J1100

== ENCOUNTER 2019-05-10 03:48 | Emergency (ER) | payer MEDICARE, MEDICAID ==
[~2019-05-10] VITALS: Ht 162.6 cm; Wt 124.7 kg
[~2019-05-10 03:48] MED LIST changes: +PREDNISONE50 MG ORAL
[2019-05-10 04:00] VITALS: BP 175/88
--- NOTE | 2019-05-10 04:00 | NUR ---
ED Nurse Note: Pt ambulated to ED from home c/o spirebite a week ago on the back of her neck as well as 10/10 neck pain, back pain and bone pain
[2019-05-10] MEDS ORDERED: Albuterol/Ipratropium 3ml neb HHN ONE (04:45)
[2019-05-10] MEDS ORDERED: oxyCODONE HCL/Acetaminophen 5/325mg ORAL ONE (05:15)
[2019-05-10] MEDS ORDERED: ALBUTEROL SULF8.5 GM INH (05:28)
--- NOTE | 2019-05-10 05:36 | Emergency Room Report ---
History of Present Illness General Chief Complaint: Pain Source: Patient Present Illness HPI Is a 63-year-old female presented after increased pain to her upper back. Patient a prior history of diabetes. She also prior history of COPD. She reports having increased worsening of pain over the past few days. She had been reportedly recently prescribed some Novelty but had not been taking this for several days due to continued pain. Patient states that she had been having count increased increased generalized body aches. She denies any diarrhea or vomiting. She reports having increased pain to her joints. She had prior history of arthritis. patient is a type II diabetic. Allergies: Coded Allergies: ERYTHROMYCIN BASE (Verified Allergy, Unknown, 09/28/18) Patient History Past Medical History: see triage record Now: No Reviewed Nursing Documentation: PMH: Agreed; PSxH: Agreed Nursing Documentation-PMH Hx Hypertension: Yes Hx COPD: Yes - copd Hx Diabetes: Yes - Neuropathy Hx Cancer: No Hx Gastrointestinal Problems: Yes - KIDNEY STONES REMOVAL Hx Dialysis: No - stent in urethra, Hx Neurological Problems: No Hx Cerebrovascular Accident: No Review of Systems All Other Systems: negative except mentioned in HPI Physical Exam Vital Signs Date Time Temp Pulse Resp B/P (MAP) Pulse Ox O2 Delivery O2 Flow Rate FiO2 05/10/19 03:57 98.2 72 16 175/88 (117) 96 Room Air 05/10/19 04:45 21 Sp02 EP Interpretation: reviewed, normal General Appearance: normal inspection, well appearing, no apparent distress, alert, GCS 15, Chronically Ill Head: atraumatic ENT: normal ENT inspection, hearing grossly normal, normal voice Neck: normal inspection, full range of motion, supple, no bony tend Respiratory: normal inspection, lungs clear, normal breath sounds, no respiratory distress, no retraction, no wheezing Cardiovascular #1: regular rate, rhythm, no edema Gastrointestinal: normal inspection, normal bowel sounds, non tender, soft, no guarding, no hernia Genitourinary: no CVA tenderness Musculoskeletal: back normal, decreased range of motion Neurologic: normal inspection, alert, oriented x3, responsive, hospice social worker III-XII nml as tested, speech normal Psychiatric: normal inspection, judgement/insight normal, mood/affect normal Skin: no rash, other - Small area to her back which does not appear to be significantly infected or erythematous. Less than 0.5 cm Medical Decision Making Diagnostic Impression: Primary Impression: Exacerbation of chronic back pain Additional Impression: COPD (chronic obstructive pulmonary disease) ER Course Patient presented for back pain. Differential diagnosis included but was not limited to herniated disc, cauda equina syndrome, abdominal aortic aneurysm, perforated ulcer, spinal epidural abscess, spinal stenosis, lumbar fracture, metastatic lesion, pyelonephritis . patient has a benign exam and does not appear to require any imaging or laboratory testing at this time. Patient was noted to have prior history of chronic lung disease. She is given breathing treatments. She is given oral Percocet due to pain. Patient does not appear to have any evidence of systemic infection at this time. Patient was noted to have small area to her back which appears to be mildly excoriated without any evidence of infection. Patient appears to be stable for outpatient evaluation and treatment.Patient was advised to return if any worsening condition or other concerns. Last Vital Signs Date Time Temp Pulse Resp B/P (MAP) Pulse Ox O2 Delivery O2 Flow Rate FiO2 05/10/19 04:59 78 16 99 Room Air 21 05/10/19 04:00 98.2 175/88 Status: improved Disposition: HOME, SELF-CARE Condition: Stable Scripts Albuterol Sulfate* (ALBUTEROL SULFATE MDI*) 8.5 Gm Hfa.aer.ad 2 PUFF INH Q4H, #1 INH 0 Refills Prov: Yandel Olmedo MD 05/10/19 Patient Instructions: Chronic Obstructive Pulmonary Disease Exacerbation, Easy- to-Read, Chronic Pain Yandel Olmedo MD May 10, 2019 05:36
[2019-05-10 05:55] VITALS: BP 175/88
--- NOTE | 2019-05-10 05:55 | NUR ---
ER DISCHARGE NOTE: Patient is cleared to be discharged per ERMD, pt is aox4, on room air, with stable vital signs. pt was given dc and prescription instructions, pt was able to verbalize understanding, pt id band removed. pt is able to ambulate with steady gait. pt took all belongings.
== END 2019-05-10 05:55 | disposition home or self-care (01) ==
LOC: EMR 04:18
DX: M54.89 Other dorsalgia (principal); G89.29 Other chronic pain; J44.9 Chronic obstructive pulmonary disease, unspecified; Z88.1 Allergy status to other antibiotic agents; I10 Essential (primary) hypertension; E11.40 Type 2 diabetes mellitus with diabetic neuropathy, unspecified; Z87.442 Personal history of urinary calculi; Z96.0 Presence of urogenital implants
CPT/HCPCS: 94640; 94664; 99283; J7620

== ENCOUNTER 2019-08-28 11:12 | Emergency (ER) | payer MEDICARE, MEDICAID ==
[~2019-08-28] VITALS: Ht 162.6 cm; Wt 122.5 kg
[2019-08-28 11:23] VITALS: BP 147/81
--- NOTE | 2019-08-28 11:30 | NUR ---
ED Nurse Note: PT WALKED IN DUE TO COUGHING AND SOB X 4 DAYS. HX OF COPD AND STATES SHE ALSO NEEDS A MEDICATION REFILL FOR PREDNISONE. AAO X4 AND AMBULATORY.
--- NOTE | 2019-08-28 12:21 | Emergency Room Report ---
History of Present Illness General Chief Complaint: Upper Respiratory Illness Source: Patient Present Illness HPI 64-year-old female presents to the emergency department complaining of decreased help of At Home albuterol inhaler treatments. Patient reports exacerbation of her COPD with an associated cough. Patient denies chest pain, palpitations or being severely short of breath. Patient reports intermittent wheezes. Patient states that on occasion she will require prednisone. She denies fevers, chills, hemoptysis, recent travel or ill contacts with similar symptoms. Patient reports she is up-to-date with recent vaccinations. some relief from albuterol inhaler but having to use more frequently than normal. Allergies: Coded Allergies: ERYTHROMYCIN BASE (Verified Allergy, Unknown, 09/28/18) Patient History Past Medical History: see triage record, asthma, COPD, other - renal calculi Past Surgical History: none Pertinent Family History: none Now: No Reviewed Nursing Documentation: PMH: Agreed; PSxH: Agreed Nursing Documentation-PMH Hx Hypertension: Yes Hx COPD: Yes - copd Hx Diabetes: Yes - Neuropathy Hx Cancer: No Hx Gastrointestinal Problems: Yes - KIDNEY STONES REMOVAL Hx Dialysis: No - stent in urethra, Hx Neurological Problems: No Hx Cerebrovascular Accident: No Review of Systems All Other Systems: negative except mentioned in HPI Physical Exam Vital Signs Date Time Temp Pulse Resp B/P (MAP) Pulse Ox O2 Delivery O2 Flow Rate FiO2 08/28/19 11:23 98.1 69 19 147/81 (103) 96 Room Air Sp02 EP Interpretation: reviewed, normal General Appearance: no apparent distress, alert, GCS 15, non-toxic Head: normocephalic, atraumatic Eyes: bilateral eye normal inspection, bilateral eye PERRL ENT: hearing grossly normal, normal voice Neck: full range of motion Respiratory: chest non-tender, lungs clear, normal breath sounds, no respiratory distress, speaking full sentences, wheezing - expiratory wheezes bilaterally. Cardiovascular #1: regular rate, rhythm, no edema, normal capillary refill Gastrointestinal: non tender, soft Musculoskeletal: normal range of motion, gait/station normal, non-tender Neurologic: alert, motor strength/tone normal, oriented x3, sensory intact, responsive, speech normal Psychiatric: judgement/insight normal Skin: no rash, normal color, normal inspection Lymphatic: no adenopathy Medical Decision Making PA Attestation Dr. Razo Is my supervising Physician whom patient management has been discussed with. Diagnostic Impression: Primary Impression: COPD exacerbation ER Course 64-year-old female presents to the emergency department complaining of decreased help of At Home albuterol inhaler treatments. Patient reports exacerbation of her COPD with an associated cough. Patient denies chest pain, palpitations or being severely short of breath. Patient reports intermittent wheezes. Patient states that on occasion she will require prednisone. She denies fevers, chills, hemoptysis, recent travel or ill contacts with similar symptoms. Patient reports she is up-to-date with recent vaccinations. some relief from albuterol inhaler but having to use more frequently than normal. Ddx considered but are not limited to asthma exacerbation, CHF, URI, pneumonia, PE, strep pharyngitis, meningitis. Vital signs: Pt. is afebrile, VS are WNL H&PE are most consistent with URI, and COPD exacerbation ORDERS: none required at this time, the diagnosis is clinical ED INTERVENTIONS: -Prednisone PO -Albuterol nebulized treatment. - re-examination post nebulized treatment lungs are CTA bilaterally. DISCHARGE: At this time pt. is stable for d/c to home. Will provide printed patient care instructions, and any necessary prescriptions. Care plan and follow up instructions have been discussed with the patient prior to discharge. Chest X-Ray Diagnostic Results Chest X-Ray Diagnostic Results : Chest X-Ray Ordered: Yes # of Views/Limited/Complete: 1 View Indication: Shortness of Breath EP Interpretation: Yes ALFONSO Xray: Interpretation reviewed, by supervising MD, and agrees with findings. Interpretation: no consolidation, no effusion, no pneumothorax, no acute cardiopulmonary disease Impression: No acute disease Electronically Signed by: Mary Jimenez PA-C Last Vital Signs Date Time Temp Pulse Resp B/P (MAP) Pulse Ox O2 Delivery O2 Flow Rate FiO2 08/28/19 11:28 75 19 Room Air 08/28/19 11:23 98.1 147/81 96 Disposition: HOME, SELF-CARE Condition: Stable Scripts Nebulizer (MINI PLUS NEBULIZER) 1 Each Each EACH for COPD, #1 Prov: Mary Jimenez 08/28/19 Albuterol Sulfate* (ALBUTEROL SULFATE HHN*) 2.5 Mg/3 Ml Vial.neb 3 ML INH THREE TIMES A DAY, #30 EA 0 Refills Prov: Mary Jimenez 08/28/19 Codeine/Promethazine Hcl* (PROMETHAZINE-CODEINE SYRUP*) 118 Ml Syrup 5 ML ORAL Q6H PRN for For Cough, #120 ML 0 Refills Prov: Mary Jimenez 08/28/19 Prednisone* (PREDNISONE*) 20 Mg Tablet 40 MG ORAL DAILY for 5 Days, #10 TAB Prov: Mary Jimenez 08/28/19 Patient Instructions: Acute Bronchitis, [id number] Additional Instructions: Take medications as directed. Follow up with a Primary Care Provider in 3-5 days, even if your symptoms have resolved. --Please review list of primary care clinics, if you do not already have a primary care provider Return sooner to ED if new symptoms occur, or current symptoms become worse. Do not drink alcohol, drive, or operate heavy machinery while taking Cough Syrup as this may cause drowsiness. - Please note that this Emergency Department Report was dictated using [employer] sales associate technology software, occasionally this can lead to erroneous entry secondary to interpretation by the dictation equipment. Mary Jimenez Aug 28, 2019 12:21
--- NOTE | 2019-08-28 12:24 | NUR ---
ED Nurse Note: XRAY on bedside.
[2019-08-28] MEDS ORDERED: Albuterol ud Inhalation HHN ONE (12:30)
--- NOTE | 2019-08-28 13:21 | Diagnostic Imaging Report ---
Indication: Chest pain Comparison: 04/11/2019 Technique: Portable AP view of the chest Findings: Heart size and mediastinal contours stable compared to the prior exam. There is no focal airspace consolidation. No pleural effusion or pneumothorax. No radiographic evidence of pulmonary edema. There are degenerative changes in the spine. No acute osseous abnormality. Impression: No radiographic evidence of acute cardiopulmonary disease.
[2019-08-28] MEDS ORDERED: ALBUTEROL2.5 MG/3 M INH (13:26)
[2019-08-28] MEDS ORDERED: PROMETHAZINE-C118 M1 ORAL (13:26)
[2019-08-28] MEDS ORDERED: PREDNISONE20 MG ORAL (13:26)
[2019-08-28] MEDS ORDERED: MINI PLUS NEBU1 EACH MC (13:26)
[2019-08-28 13:32] VITALS: BP 146/82
--- NOTE | 2019-08-28 13:32 | NUR ---
ER DISCHARGE NOTE: Patient is cleared to be discharged per ERMD, pt is aox4, on room air, with stable vital signs. pt was given dc and prescription instructions, pt was able to verbalize understanding, pt id band removed pt is able to ambulate with steady gait. pt took all belongings.
== END 2019-08-28 13:32 | disposition home or self-care (01) ==
LOC: EMR 11:30
DX: J44.1 Chronic obstructive pulmonary disease with (acute) exacerbation (principal); Z79.51 Long term (current) use of inhaled steroids; I10 Essential (primary) hypertension; Z87.442 Personal history of urinary calculi; Z88.1 Allergy status to other antibiotic agents
CPT/HCPCS: 71045; 99284; J7512

== ENCOUNTER 2019-09-22 11:34 | Emergency (ER) | payer MEDICARE, MEDICAID ==
[~2019-09-22] VITALS: Ht 162.6 cm; Wt 122.5 kg
[~2019-09-22 11:34] MED LIST changes: +ALBUTEROL2.5 MG/3 M INH; +MINI PLUS NEBU1 EACH MC
[2019-09-22] MEDS ORDERED: LOSARTAN-HCTZ1 EACH ORAL (11:43)
--- NOTE | 2019-09-22 11:49 | NUR ---
ED Nurse Note: pt ambulated to ed c/o shortness of breath with cough and yellow sputum x 7 days. pt states chest pain from cough radiated to upper back. pt also reports generalized body aches
[2019-09-22 11:50] VITALS: BP 158/72
--- NOTE | 2019-09-22 12:03 | NUR ---
HAND-OFF: Report given to ALFRED Kaba.
[2019-09-22] MEDS ORDERED: Solu-MEDROL 125mg Inj IVP ONE (12:15)
--- NOTE | 2019-09-22 12:16 | Emergency Room Report ---
History of Present Illness General Chief Complaint: Upper Respiratory Illness Source: Patient Present Illness HPI 64yo F with a history of hypertension, diabetes, high cholesterol, COPD presents to the ER with 1 week history of cough, congestion, clear sputum production, shortness of breath. Denies recent steroid use, reports she has been trying her home neb treatments without relief. Also denies hemoptysis, active chest pain, vomiting, leg swelling, syncope. Allergies: Coded Allergies: ERYTHROMYCIN BASE (Verified Allergy, Unknown, 09/28/18) Patient History Past Medical History: see triage record Last Menstrual Period: none Now: No Reviewed Nursing Documentation: PMH: Agreed; PSxH: Agreed Nursing Documentation-PMH Past Medical History: No History, Except For Hx Hypertension: Yes Hx COPD: Yes - copd Hx Diabetes: Yes - Neuropathy Hx Cancer: No Hx Gastrointestinal Problems: Yes - KIDNEY STONES REMOVAL Hx Dialysis: No - stent in urethra, Hx Neurological Problems: No Hx Cerebrovascular Accident: No Review of Systems All Other Systems: negative except mentioned in HPI Physical Exam Vital Signs Date Time Temp Pulse Resp B/P (MAP) Pulse Ox O2 Delivery O2 Flow Rate FiO2 09/22/19 11:36 98.6 76 26 158/72 (100) 97 Room Air Sp02 EP Interpretation: reviewed, normal General Appearance: no apparent distress, alert, non-toxic Head: normocephalic Eyes: bilateral eye normal inspection, bilateral eye PERRL, bilateral eye EOMI ENT: normal ENT inspection, hearing grossly normal, normal pharynx, no angioedema, normal voice, moist mucus membranes Neck: normal inspection, full range of motion, supple, supple/symm/no masses Respiratory: chest non-tender, lungs clear, normal breath sounds, chest symmetrical, palpation of chest normal Cardiovascular #1: normal peripheral pulses, regular rate, rhythm Cardiovascular #2: 2+ radial (R), 2+ radial (L) Gastrointestinal: normal inspection, non tender, soft, no mass, no guarding, no rebound Rectal: deferred Genitourinary: normal inspection, no CVA tenderness Musculoskeletal: back normal, normal range of motion, no calf tenderness, gait/ station normal, non-tender Neurologic: alert, motor strength/tone normal, spreader III-XII nml as tested, sensory intact, responsive, speech normal Psychiatric: judgement/insight normal, memory normal, mood/affect normal Skin: warm/dry Lymphatic: no adenopathy Medical Decision Making ER Course Patient not wheezing, exam very benign, suspect influenza. Labs, chest x-ray, EKG, influenza swab all negative and unremarkable. Discharge patient diagnosis URI versus influenza. EKG Diagnostic Results EKG Time: 12:21 EP Interpretation: no stemi Rate: normal Rhythm: NSR ST Segments: no acute changes ASA given to the pt in ED: No Rhythm Strip Diag. Results Rhythm Strip Time: 12:45 EP Interpretation: yes Rate: 70 Rhythm: NSR, no PVC's, no ectopy Chest X-Ray Diagnostic Results Chest X-Ray Diagnostic Results : Chest X-Ray Ordered: Yes # of Views/Limited/Complete: 1 View Indication: Shortness of Breath Interpretation: no consolidation, no effusion, no pneumothorax, no acute cardiopulmonary disease Impression: No acute disease Last Vital Signs Date Time Temp Pulse Resp B/P (MAP) Pulse Ox O2 Delivery O2 Flow Rate FiO2 09/22/19 11:50 98.6 76 26 158/72 97 Room Air Disposition: HOME, SELF-CARE Condition: Stable CIARRA CRAMER M.D Sep 22, 2019 12:16
[2019-09-22] MEDS: Ipratropium 0.02% Inh Soln 2.5ml UD HHN SCH (12:28)
[2019-09-22] MEDS: Albuterol ud Inhalation HHN SCH (12:28)
[2019-09-22 13:12] LABS: BASOPHILS % (AUTO) 1.1 % (0.0-2.0); EOSINOPHILS % (AUTO) 2.8 % (0.0-3.0); HEMATOCRIT 35.4 % (37.0-47.0); HEMOGLOBIN 11.9 G/DL (12.0-16.0); LYMPHOCYTES % (AUTO) 25.8 % (20.0-45.0); MEAN CORPUSCULAR VOLUME 85 FL (80-99); MONOCYTES % (AUTO) 8.6 % (1.0-10.0); NEUTROPHILS % (AUTO) 61.7 % (45.0-75.0); PLATELET COUNT 215 K/UL (150-450); RED BLOOD COUNT 4.16 M/UL (4.20-5.40); WHITE BLOOD COUNT 6.6 K/UL (4.8-10.8)
--- NOTE | 2019-09-22 13:14 | Diagnostic Imaging Report ---
Indication: Dyspnea Comparison: 08/28/2019 A single view chest radiograph was obtained. Findings: Cardiomediastinal appearance is within normal limits for age. The lungs are clear. Pulmonary vascularity is appropriate. The diaphragmatic contour is smooth and costophrenic angles are sharp. No pleural effusions are identified. The bones are unremarkable. Impression: No acute findings
[2019-09-22 13:30] LABS: ANION GAP 9 mmol/L (5-15); BLOOD UREA NITROGEN 12 mg/dL (7-18); CALCIUM 8.8 MG/DL (8.5-10.1); CARBON DIOXIDE 29 MMOL/L (21-32); CHLORIDE 104 MMOL/L (98-107); CREATININE 1.1 MG/DL (0.55-1.30); POTASSIUM 3.3 MMOL/L (3.5-5.1); SODIUM 142 MMOL/L (136-145)
[2019-09-22 13:42] LABS: ALANINE AMINOTRANSFERASE 40 U/L (12-78); ALBUMIN 3.4 G/DL (3.4-5.0); ALBUMIN/GLOBULIN RATIO 0.9 (1.0-2.7); ALKALINE PHOSPHATASE 102 U/L (46-116); ASPARTATE AMINO TRANSFERASE 24 U/L (15-37); BILIRUBIN,TOTAL 0.7 MG/DL (0.2-1.0)
[2019-09-22] MEDS ORDERED: ROBITUSSIN30 MG/5 ML PO (14:41)
[2019-09-22] MEDS ORDERED: ALBUTEROL SULF8.5 GM INH (14:41)
[2019-09-22] MEDS ORDERED: FLUTICASONE PRO16 G1 NASAL (14:41)
[2019-09-22 15:08] VITALS: BP 122/84
== END 2019-09-22 15:08 | disposition home or self-care (01) ==
LOC: EMR 12:29
DX: R05 Cough (principal); R06.02 Shortness of breath; E78.00 Pure hypercholesterolemia, unspecified; J44.9 Chronic obstructive pulmonary disease, unspecified; I10 Essential (primary) hypertension; E11.40 Type 2 diabetes mellitus with diabetic neuropathy, unspecified
CPT/HCPCS: 36415; 71045; 80053; 83880; 84484; 85025; 86710; 96374; 99284; J2930

== ENCOUNTER 2020-02-01 19:55 | Emergency (ER) | payer MEDICARE, MEDICAID ==
[~2020-02-01] VITALS: Ht 162.6 cm; Wt 117.9 kg
[~2020-02-01 19:55] MED LIST changes: +FLUTICASONE PRO16 G1 NASAL; +LOSARTAN-HCTZ1 EACH ORAL; +ROBITUSSIN30 MG/5 ML PO
[2020-02-01 20:07] VITALS: BP 128/74
--- NOTE | 2020-02-01 20:10 | NUR ---
ED Nurse Note: Walk-in patient with complaints of lower back pain x 6 days. Patient denies trauma, and reports COPD diagnosis, DMII, and being out of prednisone. Patient currently undergoing breathing treatment. Will continue to monitor.
[2020-02-01] MEDS ORDERED: ADALAT10 MG ORAL (20:18)
[2020-02-01] MEDS ORDERED: DIOVAN160 MG ORAL (20:19)
[2020-02-01] MEDS ORDERED: Albuterol ud Inhalation HHN ONE (20:30)
[2020-02-01] MEDS ORDERED: Ipratropium 0.02% Inh Soln 2.5ml UD HHN ONE (20:30)
--- NOTE | 2020-02-01 20:30 | NUR ---
ED Nurse Note: Patient tolerated oral medication administration well. Will continue ton santiago.
[2020-02-01] MEDS ORDERED: Acetaminophen 500mg (ES) tab ORAL ONE (20:45)
[2020-02-01] MEDS ORDERED: ROBAXIN-750750 MG PO (21:35)
[2020-02-01] MEDS ORDERED: PREDNISONE20 MG ORAL (21:35)
[2020-02-01] MEDS ORDERED: Methocarbamol 750mg tab ORAL ONE (21:45)
[2020-02-01 21:48] VITALS: BP 128/74
--- NOTE | 2020-02-01 21:48 | NUR ---
ER DISCHARGE NOTE: Patient is cleared to be discharged per ERMD, pt is aox4, 98% on room air, with stable vital signs. pt was given dc and prescription instructions, pt was able to verbalize understanding of discharge instructions, pt id band and iv site removed without complications. pt is able to ambulate with steady gait. pt took all belongings.
--- NOTE | 2020-02-04 16:17 | Emergency Room Report ---
History of Present Illness General Chief Complaint: Lower Back Pain or Injury Source: Patient Present Illness HPI 64-year-old female presents complaining of back pain. History of chronic back pain. Denies any fall or injury. For the last 5 days. Dull, 6 out of 10, nonradiating. Also complaining of wheezing. History of COPD. Denies cough. Denies fevers or chills. Denies chest pain. States she does not have any prednisone at this time. Denies sick contacts or recent travel. No other aggravating relieving factors. Denies any other associated symptoms Allergies: Coded Allergies: ERYTHROMYCIN BASE (Verified Allergy, Unknown, 09/28/18) COVID-19 Screening Contact w/high risk pt: No Recent Travel to affected area: No Experienced COVID-19 symptoms?: No COVID-19 Testing performed LEASING SPECIALIST: No Patient History Past Medical History: DM, HTN, COPD Pertinent Family History: none Social History: Denies: smoking, alcohol use, drug use Now: No Immunizations: UTD Reviewed Nursing Documentation: PMH: Agreed; PSxH: Agreed Nursing Documentation-PMH Hx Hypertension: Yes Hx COPD: Yes - copd Hx Diabetes: Yes - Neuropathy Hx Cancer: No Hx Gastrointestinal Problems: Yes - KIDNEY STONES REMOVAL Hx Dialysis: No - stent in urethra, Hx Neurological Problems: No Hx Cerebrovascular Accident: No Review of Systems All Other Systems: negative except mentioned in HPI Physical Exam Vital Signs Date Time Temp Pulse Resp B/P (MAP) Pulse Ox O2 Delivery O2 Flow Rate FiO2 02/01/20 20:07 98.4 89 18 128/74 95 Room Air 02/01/20 20:32 21 Sp02 EP Interpretation: reviewed, normal General Appearance: no apparent distress, alert, GCS 15, non-toxic Head: normocephalic, atraumatic Eyes: bilateral eye normal inspection, bilateral eye PERRL ENT: hearing grossly normal, normal pharynx, no angioedema, normal voice Neck: full range of motion, supple/symm/no masses Respiratory: chest non-tender, normal breath sounds, speaking full sentences, wheezing Cardiovascular #1: regular rate, rhythm, no edema Cardiovascular #2: 2+ carotid (R), 2+ carotid (L), 2+ radial (R), 2+ radial (L) , 2+ dorsalis pedis (R), 2+ dorsalis pedis (L) Gastrointestinal: normal bowel sounds, non tender, soft, non-distended, no guarding, no rebound Rectal: deferred Genitourinary: normal inspection, no CVA tenderness Musculoskeletal: back normal, normal range of motion, gait/station normal, non- tender Neurologic: alert, motor strength/tone normal, oriented x3, sensory intact, responsive, speech normal Psychiatric: judgement/insight normal, memory normal, mood/affect normal, no suicidal/homicidal ideation Reflexes: 3+ bicep (R), 3+ bicep (L), 3+ tricep (R), 3+ tricep (L), 3+ knee (R) , 3+ knee (L) Lymphatic: no adenopathy Medical Decision Making Diagnostic Impression: Primary Impression: COPD exacerbation Additional Impression: Exacerbation of chronic back pain ER Course Hospital Course 64-year-old female presents to ED complaining of wheezing. c/o back pain Differential diagnoses include: URI, bronchitis, asthma/COPD, pneumonia Clinical course Patient placed on stretcher. After initial history and physical I ordered prednisone and nebulizer treatment. Upon reassessment patient states she feels better. Wheezing resolved. Back pain improved after medications. Safe for discharge for close outpatient follow-up. She has a PMD DiagnosisCOPD exacerbation, exacerbation of chronic back pain Stable and discharged home with prescriptions for Rx prednisone, robaxin. Instructed to followup with PMD. Return to ED if symptoms recur or worsen Last Vital Signs Date Time Temp Pulse Resp B/P (MAP) Pulse Ox O2 Delivery O2 Flow Rate FiO2 02/01/20 21:48 98.4 89 20 128/74 100 Room Air 21 Status: improved Disposition: HOME, SELF-CARE Condition: Stable Scripts Methocarbamol* (ROBAXIN-750*) 750 Mg Tablet 750 MG PO QID, #28 TAB 0 Refills Prov: Geovanny Mccarty MD 02/01/20 Prednisone* (PREDNISONE*) 20 Mg Tablet 40 MG ORAL DAILY, #10 TAB Prov: Geovanny Mccarty MD 02/01/20 Referrals: NOT CHOSEN IPA/,REFERRING Patient Instructions: Chronic Obstructive Pulmonary Disease, Tcby-lm-Talk Geovanny Mccarty MD Feb 04, 2020 16:16
== END 2020-02-01 21:48 | disposition home or self-care (01) ==
LOC: EMR 21:19
DX: J44.1 Chronic obstructive pulmonary disease with (acute) exacerbation (principal); G89.29 Other chronic pain; I10 Essential (primary) hypertension; E11.40 Type 2 diabetes mellitus with diabetic neuropathy, unspecified; Z87.442 Personal history of urinary calculi
CPT/HCPCS: 82962; 99284; J7512

== ENCOUNTER 2020-03-05 02:36 | Inpatient (IN) | payer MEDICARE, MEDICAID ==
[~2020-03-05] VITALS: Ht 162.6 cm; Wt 123.8 kg
[~2020-03-05 02:36] MED LIST changes: +ADALAT10 MG ORAL; +DIOVAN160 MG ORAL; +ROBAXIN-750750 MG PO
[2020-03-05 02:50] VITALS: BP 147/90
--- NOTE | 2020-03-05 02:50 | NUR ---
ED Nurse Note: Patient ambulated to ED C/O SOB for 8 days, chest pain for 3 days 9/10 sharp sternal pain. Patient is aaox4, vss, with difficulty breathing while ambulating.
[2020-03-05] MEDS ORDERED: NORCO 7.5-3251 EACH ORAL (02:55)
[2020-03-05] MEDS ORDERED: METFORMIN HCL500 M1 ORAL (02:55)
[2020-03-05] MEDS ORDERED: Aspirin Baby 81mg ORAL ONE (03:00)
--- NOTE | 2020-03-05 03:00 | NUR ---
ED Nurse Note: Blood work setn to lab.
--- NOTE | 2020-03-05 03:19 | Emergency Room Report ---
History of Present Illness General Chief Complaint: Chest Pain Source: Patient Present Illness HPI Patient is a 64-year-old female past medical history of COPD, diabetes, hypertension and obesity who chronically walks with a walker presents to the ER complaining of chest pain, shortness of breath, chest tightness, nonproductive cough and upper back pain for the past week. She states that this feels like her COPD. Patient complains of exertional chest pain. She states that she is not on aspirin or any blood thinners. She denies any fever or chills. She denies any abdominal pain nausea or vomiting. Allergies: Coded Allergies: ERYTHROMYCIN BASE (Verified Allergy, Unknown, 09/28/18) COVID-19 Screening Contact w/high risk pt: No Recent Travel to affected area: No Experienced COVID-19 symptoms?: No COVID-19 symptoms experienced: Shortness of Breath COVID-19 Testing performed DERMATOLOGIST MANAGING PARTNER: No Patient History Now: No Reviewed Nursing Documentation: PMH: Agreed; PSxH: Agreed Nursing Documentation-PMH Hx Cardiac Problems: No Hx Hypertension: Yes - hyperlipidemia Hx Pacemaker: No Hx Asthma: No Hx COPD: Yes Hx Diabetes: Yes Hx Cancer: No Hx Gastrointestinal Problems: No Hx Dialysis: No History Of Psychiatric Problem: Yes - panic attacks, anxiety Hx Neurological Problems: No Hx Cerebrovascular Accident: No Hx Seizures: No Review of Systems All Other Systems: negative except mentioned in HPI Physical Exam Vital Signs Date Time Temp Pulse Resp B/P (MAP) Pulse Ox O2 Delivery O2 Flow Rate FiO2 03/05/20 02:43 98.2 92 22 149/87 (107) 96 Room Air Sp02 EP Interpretation: reviewed, normal General Appearance: no apparent distress, alert, GCS 15, non-toxic Head: normocephalic, atraumatic Eyes: bilateral eye normal inspection, bilateral eye PERRL ENT: hearing grossly normal, normal pharynx, no angioedema, normal voice Neck: full range of motion, supple/symm/no masses Respiratory: chest non-tender, speaking full sentences, other - Tachypneic Cardiovascular #1: regular rate, rhythm, no edema Gastrointestinal: normal bowel sounds, non tender, soft, non-distended, no guarding, no rebound Rectal: deferred Genitourinary: no CVA tenderness Musculoskeletal: no calf tenderness Neurologic: alert, motor strength/tone normal, oriented x3, sensory intact, responsive, speech normal Psychiatric: no suicidal/homicidal ideation Skin: no rash Lymphatic: no adenopathy Medical Decision Making Diagnostic Impression: Primary Impression: Chest pain Additional Impression: Hypokalemia ER Course Patient's vital signs stable. Rapid COVID negative. Patient now able to receive nebulizer treatment in the emergency room. Patient given aspirin as well as sublingual nitro. She is now chest pain-free. EKG had no acute ST changes. Troponin negative x1. Chest x-ray demonstrates no acute cardiopulmonary pathology. Patient mildly hypokalemic with potassium of 3.3. Patient given 40 mEq of oral potassium chloride. Patient's d-dimer mildly elevated at 1. VQ scan has been ordered and is pending. Laboratory Tests Test 03/05/20 03:12 03/05/20 03:33 Arterial Blood pH 7.443 (7.350-7.450) Arterial Blood Partial Pressure CO2 39.3 mmHg (35.0-45.0) Arterial Blood Partial Pressure O2 109.8 mmHg (75.0-100.0) H Arterial Blood HCO3 26.3 mmol/L (22.0-26.0) H Arterial Blood Oxygen Saturation 97.7 % (95-100) Arterial Blood Base Excess 2.1 (-2-2) H Paxton Test Positive White Blood Count 8.0 K/UL (4.8-10.8) Red Blood Count 4.46 M/UL (4.20-5.40) Hemoglobin 12.8 G/DL (12.0-16.0) Hematocrit 39.5 % (37.0-47.0) Mean Corpuscular Volume 89 FL (80-99) Mean Corpuscular Hemoglobin 28.7 PG (27.0-31.0) Mean Corpuscular Hemoglobin Concent 32.4 G/DL (32.0-36.0) Red Cell Distribution Width 13.0 % (11.6-14.8) Platelet Count 264 K/UL (150-450) Mean Platelet Volume 7.4 FL (6.5-10.1) Neutrophils (%) (Auto) 58.3 % (45.0-75.0) Lymphocytes (%) (Auto) 30.8 % (20.0-45.0) Monocytes (%) (Auto) 7.2 % (1.0-10.0) Eosinophils (%) (Auto) 2.6 % (0.0-3.0) Basophils (%) (Auto) 1.2 % (0.0-2.0) Prothrombin Time 10.7 SEC (9.30-11.50) Prothrombin Time INR 1.0 (0.9-1.1) Activated Partial Thromboplast Time 25 SEC (23-33) D-Dimer 1.09 mg/L FEU (0.00-0.49) H Urine Color Yellow Urine Appearance Clear Urine pH 5 (4.5-8.0) Urine Specific [place] 1.025 (1.005-1.035) Urine Protein Negative (NEGATIVE) Urine Glucose (UA) Negative (NEGATIVE) Urine Ketones Negative (NEGATIVE) Urine Blood 2+ (NEGATIVE) H Urine Nitrite Negative (NEGATIVE) Urine Bilirubin Negative (NEGATIVE) Urine Urobilinogen Normal MG/DL (0.0-1.0) Urine Leukocyte Esterase Negative (NEGATIVE) Urine RBC 2-4 /HPF (0 - 2) H Urine WBC 0-2 /HPF (0 - 2) Urine Squamous Epithelial Cells Few /LPF (NONE/OCC) Urine Bacteria Few /HPF (NONE) Sodium Level 140 MMOL/L (136-145) Potassium Level 3.3 MMOL/L (3.5-5.1) L Chloride Level 101 MMOL/L (98-107) Carbon Dioxide Level 28 MMOL/L (21-32) Anion Gap 11 mmol/L (5-15) Blood Urea Nitrogen 13 mg/dL (7-18) Creatinine 1.4 MG/DL (0.55-1.30) H Estimated Glomerular Filtration Rate 45.8 mL/min (>60) Glucose Level 130 MG/DL (74-106) H Lactic Acid Level Pending Calcium Level 9.2 MG/DL (8.5-10.1) Magnesium Level 1.9 MG/DL (1.8-2.4) Total Bilirubin 1.0 MG/DL (0.2-1.0) Aspartate Amino Transferase (AST) 47 U/L (15-37) H Alanine Aminotransferase (ALT) 59 U/L (12-78) Alkaline Phosphatase 94 U/L (46-116) Troponin I 0.000 ng/mL (0.000-0.056) Pro-B-Type Natriuretic Peptide 8 pg/mL (0-125) Total Protein 8.0 G/DL (6.4-8.2) Albumin 4.4 G/DL (3.4-5.0) Globulin 3.6 g/dL Albumin/Globulin Ratio 1.2 (1.0-2.7) Microbiology Date/Time Source Procedure Growth Status 03/05/20 03:33 Nasopharynx SARS-CoV-2 RdRp Gene Assay - Final Complete EKG Diagnostic Results EKG Time: 03:02 EP Interpretation: Verona Olguin MD NSR Rate: normal - 95 Rhythm: NSR ST Segments: no acute changes ASA given to the pt in ED: Yes Rhythm Strip Diag. Results Rhythm Strip Time: 03:18 EP Interpretation: yes - Verona Olguin MD Rate: 97 Rhythm: NSR, no PVC's, no ectopy Chest X-Ray Diagnostic Results Chest X-Ray Diagnostic Results : Chest X-Ray Ordered: Yes # of Views/Limited/Complete: 1 View Indication: Chest Pain EP Interpretation: Yes Interpretation: no consolidation, no effusion, no pneumothorax, no acute cardiopulmonary disease Impression: No acute disease Electronically Signed by: Verona Olguin MD Last Vital Signs Date Time Temp Pulse Resp B/P (MAP) Pulse Ox O2 Delivery O2 Flow Rate FiO2 03/05/20 02:43 98.2 92 22 149/87 (107) 96 Room Air Disposition: ADMITTED INPATIENT - Telemetry Condition: Critical Physician Consult: Dr. Pearson Referrals: NON PHYSICIAN (PCP) Verona Olguin M.D. Mar 05, 2020 03:19
[2020-03-05 03:38] LABS: APPEARANCE,URINE CLEAR; BILIRUBIN, URINE NEGATIVE (NEGATIVE); GLUCOSE, URINE (UA) NEGATIVE (NEGATIVE); KETONES,URINE NEGATIVE (NEGATIVE); LEUKOCYTE ESTERASE ,URINE NEGATIVE (NEGATIVE); NITRITE,URINE NEGATIVE (NEGATIVE); PH,URINE 5 (4.5-8.0); PROTEIN,URINE NEGATIVE (NEGATIVE); UROBILINOGEN,URINE NORMAL MG/DL (0.0-1.0)
[2020-03-05 03:41] LABS: BASOPHILS % (AUTO) 1.2 % (0.0-2.0); EOSINOPHILS % (AUTO) 2.6 % (0.0-3.0); HEMATOCRIT 39.5 % (37.0-47.0); HEMOGLOBIN 12.8 G/DL (12.0-16.0); LYMPHOCYTES % (AUTO) 30.8 % (20.0-45.0); MEAN CORPUSCULAR VOLUME 89 FL (80-99); MONOCYTES % (AUTO) 7.2 % (1.0-10.0); NEUTROPHILS % (AUTO) 58.3 % (45.0-75.0); PLATELET COUNT 264 K/UL (150-450); RED BLOOD COUNT 4.46 M/UL (4.20-5.40)
--- NOTE | 2020-03-05 03:41 | NUR ---
ED Nurse Note: Imaging complete.
--- NOTE | 2020-03-05 03:46 | NUR ---
ED Nurse Note: Patient states pain is 3/10.
[2020-03-05 03:47] LABS: COLOR,URINE YELLOW
[2020-03-05 03:49] LABS: ANION GAP 11 mmol/L (5-15); BLOOD UREA NITROGEN 13 mg/dL (7-18); CALCIUM 9.2 MG/DL (8.5-10.1); CARBON DIOXIDE 28 MMOL/L (21-32); CHLORIDE 101 MMOL/L (98-107); CREATININE 1.4 MG/DL (0.55-1.30); POTASSIUM 3.3 MMOL/L (3.5-5.1); SODIUM 140 MMOL/L (136-145)
[2020-03-05 04:00] LABS: ALANINE AMINOTRANSFERASE 59 U/L (12-78); ALBUMIN 4.4 G/DL (3.4-5.0); ALBUMIN/GLOBULIN RATIO 1.2 (1.0-2.7); ALKALINE PHOSPHATASE 94 U/L (46-116); ASPARTATE AMINO TRANSFERASE 47 U/L (15-37)
[2020-03-05] MEDS ORDERED: Nitroglycerin Subl 0.4mg tab SL PRN ×3 (04:00→08:45)
--- NOTE | 2020-03-05 04:02 | Diagnostic Imaging Report ---
EXAM: XR Chest, 1 View CLINICAL HISTORY: SOB TECHNIQUE: Frontal view of the chest. COMPARISON: 09/22/19 FINDINGS: Lungs: No dense consolidation. Pleural space: Unremarkable. No pneumothorax. Heart: Unremarkable. No cardiomegaly. Mediastinum: Unremarkable. Bones/joints: Degenerative changes are seen in the spine. IMPRESSION: No acute pulmonary disease.
[2020-03-05] MEDS: Albuterol/Ipratropium 3ml neb HHN SCH ×2 (04:07→04:12)
--- NOTE | 2020-03-05 04:08 | NUR ---
ED Nurse Note: Pt refused pain medication and states pain is 3/10.
--- NOTE | 2020-03-05 04:16 | NUR ---
ED Nurse Note: Report given to ALFRED Koo
--- NOTE | 2020-03-05 04:30 | NUR ---
ED Nurse Note: Second Lactic Acid draw sent to lab.
[2020-03-05 04:45] VITALS: BP 169/74
--- NOTE | 2020-03-05 04:45 | NUR ---
TRANSFER TO FLOOR: Patient transferred to Tele as ordered, per Dr Pearson. Report given to ALFRED Koo. Belongings and medications given to ALFRED Murphy. Family and or S/O informed of transfer.
--- NOTE | 2020-03-05 05:00 | NUR ---
NURSE NOTES: Notified Dr. Pearson of patient's admission to unit. Made him aware patient admitted with chest pain and SOB, difficulty swalling past 3 days, gas, indigestion, and clear phlegm in throat. Made him aware of recent vital signs. Awaiting orders.
--- NOTE | 2020-03-05 06:15 | NUR ---
NURSE NOTES: Dr. Pearson replied with orders to swab patient for Covid-19. Endorsed to incoming shift and to also follow up on further orders.
--- NOTE | 2020-03-05 07:32 | NUR ---
HAND-OFF: Report given to ALFRED Acosta. Pt stable.
[2020-03-05 08:00] VITALS: BP 151/88
[2020-03-05] MEDS ORDERED: Promethazine/Codeine 5ml UD ORAL PRN (08:45)
[2020-03-05] MEDS ORDERED: Morphine Sulfate 2mg/ml Inj(IV/IM USE ONLY) IV PRN (08:45)
[2020-03-05] MEDS: Heparin 5000 units/ml inj SUBQ SCH ×2 (09:00→20:52)
--- NOTE | 2020-03-05 11:05 | NUR ---
CASE MANAGEMENT: INITIAL REVIEW 03/05/2020 64 YO F PRESENTED TO OUR ED CC: CP PMHx; COPD, diabetes, hypertension and obesity SI:CP. COPD. VS: T 98.2 HR 92 RR 22 B/P 149/87 SATS 96% ON RA LABS: K 3.3 CR 1.4 GLU 130 AST 47 LACTIC ACID 2.5 IS: ASA PO X1 PATIENT ADMITTED TO TELE 03/05/2020 @ 0330 DCP: HOME PLAN OF CARE: 2D ECHO SPUTUM CX COVID SWAB PENDING
[2020-03-05] MEDS: NovoLOG Insulin Flexpen SUBQ SCH ×3 (11:30→20:53)
--- NOTE | 2020-03-05 11:56 | Consultation ---
History of Present Illness General Date patient seen: Mar 05, 2020 Chief Complaint: Chest Pain Present Illness HPI 64-year-old female with past medical history of COPD, diabetes, hypertension and obesity presented to the ER complaining of chest pain, shortness of breath , chest tightness, nonproductive cough and upper back pain for the past week. She states that this feels like her COPD. Patient complains of exertional chest pain. Her COVID rapid test was negative. She is admitted to telemetry for ACS and exacerbation of COPD. Allergies: Coded Allergies: ERYTHROMYCIN BASE (Verified Allergy, Unknown, 09/28/18) Medication History Scheduled Metformin Hcl* (Metformin Hcl*), 500 MG ORAL DAILY, (Reported) Nifedipine (Nifedipine*), 60 MG ORAL DAILY, (Reported) Paroxetine Hcl* (Paroxetine Hcl*), 40 MG ORAL HS, (Reported) Sitagliptin* (Januvia*), 100 MG ORAL DAILY, (Reported) Tizanidine Hcl* (Zanaflex*), 2 MG ORAL DAILY, (Reported) Valsartan (Diovan), 160 MG ORAL DAILY, (Reported) Scheduled PRN Albuterol Sulfate* (Albuterol Sulfate Mdi*), 2 PUFF INH Q4H PRN for cough/ wheezing Hydrocodone Bit/Acetaminophen 7.5-325* ([place] 7.5-325*), 1 TAB ORAL Q6H PRN for For Pain, (Reported) Discontinued Medications Albuterol Sulfate (Ventolin Hfa), 2 PUFFS INH EVERY 6 HOURS Discontinued Reason: MD discontinued med Albuterol Sulfate* (Albuterol Sulfate Mdi*), 2 PUFF INH Q6H Discontinued Reason: MD discontinued med Albuterol Sulfate* (Albuterol Sulfate Mdi*), 2 PUFF INH Q4H PRN for cough/ wheezing Discontinued Reason: MD discontinued med Albuterol Sulfate* (Albuterol Sulfate Mdi*), 2 PUFF INH Q4H Discontinued Reason: MD discontinued med Albuterol Sulfate* (Albuterol Sulfate Hhn*), 3 ML INH THREE TIMES A DAY Discontinued Reason: MD discontinued med Amlodipine Bes/Olmesartan Med 10-40 Mg Tablet (Nettie 10-40 Mg Tablet), 1 TAB ORAL DAILY, (Reported) Discontinued Reason: MD discontinued med Amoxicillin* (Amoxil*), 500 MG ORAL THREE TIMES A DAY Discontinued Reason: MD discontinued med Clonazepam* (Klonopin*), 1 MG ORAL Q8HR, (Reported) Discontinued Reason: MD discontinued med Codeine/Promethazine Hcl* (Promethazine-Codeine Syrup*), 10 ML ORAL Q6H PRN for For Cough Discontinued Reason: MD discontinued med Codeine/Promethazine Hcl* (Promethazine-Codeine Syrup*), 5 ML ORAL Q6H PRN for For Cough Discontinued Reason: MD discontinued med Dextromethorphan Polistirex (Robitussin ER), 30 MG PO EVERY 12 HOURS Discontinued Reason: MD discontinued med Fluticasone Propionate* (Fluticasone Propionate*), 1 SPRAY NASAL TWICE A DAY Discontinued Reason: MD discontinued med Hydrocodone Bit/Acetaminophen 5-325* ([place] 5-325*), 1 TAB ORAL Q6H PRN for For Pain Discontinued Reason: MD discontinued med Hydrocodone Bit/Acetaminophen 5-325* ([place] 5-325*), 1 TAB ORAL Q6H PRN for For Pain Discontinued Reason: MD discontinued med Ibuprofen* (Motrin*), 800 MG ORAL THREE TIMES A DAY, (Reported) Discontinued Reason: MD discontinued med Ipratropium/Albuterol Sulfate (Combivent Respimat Inhal [place]), 4 GM IH QID Discontinued Reason: MD discontinued med Losartan/Hydrochlorothiazide (Losartan-Hctz 100-12.5 Mg Tab), 1 TAB ORAL DAILY, (Reported) Discontinued Reason: MD discontinued med Methocarbamol* (Robaxin*), 500 MG PO TID Discontinued Reason: MD discontinued med Methocarbamol* (Robaxin-750*), 750 MG PO QID Discontinued Reason: MD discontinued med Nebulizer (Mini Plus Nebulizer), EACH MC, (DME) Discontinued Reason: MD discontinued med [place]-3 Fatty Acids/Fish Oil ([place] 3 1,000 Mg Softgel), 1 EACH PO, (Reported) Discontinued Reason: MD discontinued med Omeprazole (Omeprazole), 20 MG ORAL DAILY Discontinued Reason: MD discontinued med Pravastatin Sod* (Pravastatin Sod*), 40 MG ORAL DAILY, (Reported) Discontinued Reason: MD discontinued med Prednisone* (Prednisone*), 40 MG ORAL DAILY Discontinued Reason: MD discontinued med Prednisone* (Prednisone*), 10 MG ORAL DAILY Discontinued Reason: MD discontinued med Prednisone* (Prednisone*), 40 MG ORAL DAILY Discontinued Reason: MD discontinued med Prednisone* (Prednisone*), 40 MG ORAL DAILY Discontinued Reason: MD discontinued med Prednisone* (Prednisone*), 50 MG ORAL DAILY Discontinued Reason: MD discontinued med Prednisone* (Prednisone*), 40 MG ORAL DAILY Discontinued Reason: MD discontinued med Prednisone* (Prednisone*), 40 MG ORAL DAILY Discontinued Reason: MD discontinued med Patient History Healthcare decision maker Resuscitation status Advanced Directive on File Past Medical/Surgical History Past Medical/Surgical History: (1) History of renal stent (2) COPD (chronic obstructive pulmonary disease) (3) Chronic lung disease (4) Hydronephrosis (5) HTN (hypertension) (6) Diabetes Review of Systems All Other Systems: negative except mentioned in HPI Physical Exam General Appearance: WD/WN, no apparent distress Lines, tubes and drains: peripheral HEENT: normocephalic, atraumatic Neck: non-tender, normal alignment Respiratory/Chest: chest wall non-tender, lungs clear Breasts: no masses Cardiovascular/Chest: normal peripheral pulses Abdomen: normal bowel sounds, non tender Genitourinary/Rectal: normal genital exam Extremities: normal range of motion Skin Exam: normal pigmentation Neurologic: logistics lead II-XII grossly normal Last 24 Hour Vital Signs Date Time Temp Pulse Resp B/P (MAP) Pulse Ox O2 Delivery O2 Flow Rate FiO2 03/05/20 09:22 96 151/88 03/05/20 08:25 Nasal Cannula 2.0 03/05/20 08:00 97.7 96 20 151/88 (109) 98 03/05/20 06:24 Nasal Cannula 2.0 03/05/20 04:45 89 03/05/20 04:45 98.8 111 18 169/74 (105) 100 03/05/20 04:45 98.7 87 18 137/68 100 Nasal Cannula 2.0 03/05/20 04:23 91 19 100 Nasal Cannula 2.0 28 03/05/20 04:12 89 18 99 Nasal Cannula 2.0 28 03/05/20 04:08 137/68 03/05/20 02:50 98.8 89 22 147/90 97 Nasal Cannula 2.0 03/05/20 02:50 89 22 Nasal Cannula 2.0 03/05/20 02:43 98.2 92 22 149/87 (107) 96 Room Air Intake and Output 03/04/20 03/05/20 19:00 07:00 Intake Total 0 ml Balance 0 ml Intake Oral 0 ml Laboratory Tests Test 03/05/20 03:12 03/05/20 03:33 03/05/20 04:50 03/05/20 06:10 Arterial Blood pH 7.443 (7.350-7.450) Arterial Blood Partial Pressure CO2 39.3 mmHg (35.0-45.0) Arterial Blood Partial Pressure O2 109.8 mmHg (75.0-100.0) H Arterial Blood HCO3 26.3 mmol/L (22.0-26.0) H Arterial Blood Oxygen Saturation 97.7 % (95-100) Arterial Blood Base Excess 2.1 (-2-2) H Paxton Test Positive White Blood Count 8.0 K/UL (4.8-10.8) Red Blood Count 4.46 M/UL (4.20-5.40) Hemoglobin 12.8 G/DL (12.0-16.0) Hematocrit 39.5 % (37.0-47.0) Mean Corpuscular Volume 89 FL (80-99) Mean Corpuscular Hemoglobin 28.7 PG (27.0-31.0) Mean Corpuscular Hemoglobin Concent 32.4 G/DL (32.0-36.0) Red Cell Distribution Width 13.0 % (11.6-14.8) Platelet Count 264 K/UL (150-450) Mean Platelet Volume 7.4 FL (6.5-10.1) Neutrophils (%) (Auto) 58.3 % (45.0-75.0) Lymphocytes (%) (Auto) 30.8 % (20.0-45.0) Monocytes (%) (Auto) 7.2 % (1.0-10.0) Eosinophils (%) (Auto) 2.6 % (0.0-3.0) Basophils (%) (Auto) 1.2 % (0.0-2.0) Prothrombin Time 10.7 SEC (9.30-11.50) Prothromb Time International Ratio 1.0 (0.9-1.1) Activated Partial Thromboplast Time 25 SEC (23-33) D-Dimer 1.09 mg/L FEU (0.00-0.49) H Urine Color Yellow Urine Appearance Clear Urine pH 5 (4.5-8.0) Urine Specific [place] 1.025 (1.005-1.035) Urine Protein Negative (NEGATIVE) Urine Glucose (UA) Negative (NEGATIVE) Urine Ketones Negative (NEGATIVE) Urine Blood 2+ (NEGATIVE) H Urine Nitrite Negative (NEGATIVE) Urine Bilirubin Negative (NEGATIVE) Urine Urobilinogen Normal MG/DL (0.0-1.0) Urine Leukocyte Esterase Negative (NEGATIVE) Urine RBC 2-4 /HPF (0 - 2) H Urine WBC 0-2 /HPF (0 - 2) Urine Squamous Epithelial Cells Few /LPF (NONE/OCC) Urine Bacteria Few /HPF (NONE) Sodium Level 140 MMOL/L (136-145) Potassium Level 3.3 MMOL/L (3.5-5.1) L Chloride Level 101 MMOL/L (98-107) Carbon Dioxide Level 28 MMOL/L (21-32) Anion Gap 11 mmol/L (5-15) Blood Urea Nitrogen 13 mg/dL (7-18) Creatinine 1.4 MG/DL (0.55-1.30) H Estimat Glomerular Filtration Rate 45.8 mL/min (>60) Glucose Level 130 MG/DL (74-106) H Lactic Acid Level 2.50 mmol/L (0.4-2.0) H 1.50 mmol/L (0.66-2.22) Calcium Level 9.2 MG/DL (8.5-10.1) Magnesium Level 1.9 MG/DL (1.8-2.4) Total Bilirubin 1.0 MG/DL (0.2-1.0) Aspartate Amino Transf (AST/SGOT) 47 U/L (15-37) H Alanine Aminotransferase (ALT/SGPT) 59 U/L (12-78) Alkaline Phosphatase 94 U/L (46-116) Troponin I 0.000 ng/mL (0.000-0.056) Pro-B-Type Natriuretic Peptide 8 pg/mL (0-125) Total Protein 8.0 G/DL (6.4-8.2) Albumin 4.4 G/DL (3.4-5.0) Globulin 3.6 g/dL Albumin/Globulin Ratio 1.2 (1.0-2.7) POC Whole Blood Glucose Pending Microbiology Date/Time Source Procedure Growth Status 03/05/20 03:33 Nasopharynx SARS-CoV-2 RdRp Gene Assay - Final Complete Height (Feet): 5 Height (Inches): 4.00 Weight (Pounds): 273 Medications Current Medications Medications (Trade) Dose Ordered Sig/Sergio Route PRN Reason Start Time Stop Time Status Last Admin Dose Admin Acetaminophen (Tylenol) 650 mg Q4H PRN ORAL fever 03/05/20 08:45 04/04/20 08:44 Albuterol/ Ipratropium (Albuterol/ Ipratropium) 3 ml Q4H PRN HHN dyspnea 03/05/20 08:45 03/10/20 08:44 Clonidine HCl (Catapres Tab) 0.1 mg Q4H PRN ORAL sbp more than 160 03/05/20 08:45 06/03/20 08:44 Dextrose (Dextrose 50%) 25 ml Q30M PRN IV Hypoglycemia 03/05/20 08:45 06/03/20 08:44 Dextrose (Dextrose 50%) 50 ml Q30MIN PRN IV Hypoglycemia 03/05/20 08:45 06/03/20 08:44 Heparin Sodium (Porcine) (Heparin 5000 units/ml) 5,000 units EVERY 12 HOURS SUBQ 03/05/20 09:00 04/19/20 08:59 03/05/20 09:00 Insulin Aspart (NovoLOG) BEFORE MEALS AND HS SUBQ 03/05/20 11:30 06/03/20 11:29 Morphine Sulfate (Morphine Sulfate) 2 mg Q4H PRN IV For Pain 03/05/20 08:45 03/12/20 08:44 Nifedipine (Procardia XL) 60 mg DAILY ORAL 03/05/20 09:00 04/04/20 08:59 03/05/20 09:22 Nitroglycerin (Ntg) 0.4 mg Q5M X 3 DOSES PRN SL Prn Chest Pain 03/05/20 08:45 04/04/20 08:44 Ondansetron HCl (Zofran) 4 mg Q6H PRN IVP Nausea & Vomiting 03/05/20 08:45 04/04/20 08:44 Promethazine HCl/ Codeine (Phenergan with Codeine) 5 ml Q6H PRN ORAL cough 03/05/20 08:45 04/04/20 08:44 Sitagliptin Phosphate (Januvia) 100 mg DAILY ORAL 03/05/20 09:00 04/04/20 08:59 03/05/20 09:22 Temazepam (Restoril) 15 mg HSPRN PRN ORAL Insomnia 03/05/20 08:45 03/12/20 08:44 Tizanidine HCl (Zanaflex) 2 mg DAILY ORAL 03/05/20 10:00 06/03/20 09:59 03/05/20 10:18 Assessment/Plan Problem List: (1) ACS (acute coronary syndrome) ICD Codes: I24.9 - Acute ischemic heart disease, unspecified SNOMED: 517483704 (2) Acute exacerbation of chronic obstructive pulmonary disease (COPD) ICD Codes: J44.1 - Chronic obstructive pulmonary disease with (acute) exacerbation SNOMED: 175040404 (3) Diabetes ICD Codes: E11.9 - Type 2 diabetes mellitus without complications SNOMED: 97167362 (4) HTN (hypertension) ICD Codes: I10 - Essential (primary) hypertension SNOMED: 73801349 (5) History of renal stent ICD Codes: Z98.890 - Other specified postprocedural states SNOMED: 256597146 Assessment/Plan: serial ekg, troponin, echo cardiology evaluation respiratory treatment check sputum short course of steroids theophylline titrate fio2 to sat of 92% Loc Waite MD Mar 05, 2020 11:55
[2020-03-05 12:00] VITALS: BP 118/57
[2020-03-05] MEDS: cefTRIAXone 1 GM in D5W 55 ML IVPB SCH (12:00)
--- NOTE | 2020-03-05 13:53 | Cardiology Progress Note ---
Assessment/Plan Assessment/Plan [id number] covid pcr pending pt with cough as well as other sx ekg neg trop 1st neg repeat cardiac enzyme pending echo prelim normal wall motion start statin in lightof dm Objective Last 24 Hour Vital Signs Date Time Temp Pulse Resp B/P (MAP) Pulse Ox O2 Delivery O2 Flow Rate FiO2 03/05/20 09:22 96 151/88 03/05/20 08:25 Nasal Cannula 2.0 03/05/20 08:00 97.7 96 20 151/88 (109) 98 03/05/20 06:24 Nasal Cannula 2.0 03/05/20 04:45 89 03/05/20 04:45 98.8 111 18 169/74 (105) 100 03/05/20 04:45 98.7 87 18 137/68 100 Nasal Cannula 2.0 03/05/20 04:23 91 19 100 Nasal Cannula 2.0 28 03/05/20 04:12 89 18 99 Nasal Cannula 2.0 28 03/05/20 04:08 137/68 03/05/20 02:50 98.8 89 22 147/90 97 Nasal Cannula 2.0 03/05/20 02:50 89 22 Nasal Cannula 2.0 03/05/20 02:43 98.2 92 22 149/87 (107) 96 Room Air Intake and Output 03/04/20 03/05/20 19:00 07:00 Intake Total 0 ml Balance 0 ml Intake Oral 0 ml Laboratory Tests Test 03/05/20 03:12 03/05/20 03:33 03/05/20 04:50 03/05/20 06:10 Arterial Blood pH 7.443 (7.350-7.450) Arterial Blood Partial Pressure CO2 39.3 mmHg (35.0-45.0) Arterial Blood Partial Pressure O2 109.8 mmHg (75.0-100.0) H Arterial Blood HCO3 26.3 mmol/L (22.0-26.0) H Arterial Blood Oxygen Saturation 97.7 % (95-100) Arterial Blood Base Excess 2.1 (-2-2) H Paxton Test Positive White Blood Count 8.0 K/UL (4.8-10.8) Red Blood Count 4.46 M/UL (4.20-5.40) Hemoglobin 12.8 G/DL (12.0-16.0) Hematocrit 39.5 % (37.0-47.0) Mean Corpuscular Volume 89 FL (80-99) Mean Corpuscular Hemoglobin 28.7 PG (27.0-31.0) Mean Corpuscular Hemoglobin Concent 32.4 G/DL (32.0-36.0) Red Cell Distribution Width 13.0 % (11.6-14.8) Platelet Count 264 K/UL (150-450) Mean Platelet Volume 7.4 FL (6.5-10.1) Neutrophils (%) (Auto) 58.3 % (45.0-75.0) Lymphocytes (%) (Auto) 30.8 % (20.0-45.0) Monocytes (%) (Auto) 7.2 % (1.0-10.0) Eosinophils (%) (Auto) 2.6 % (0.0-3.0) Basophils (%) (Auto) 1.2 % (0.0-2.0) Prothrombin Time 10.7 SEC (9.30-11.50) Prothromb Time International Ratio 1.0 (0.9-1.1) Activated Partial Thromboplast Time 25 SEC (23-33) D-Dimer 1.09 mg/L FEU (0.00-0.49) H Urine Color Yellow Urine Appearance Clear Urine pH 5 (4.5-8.0) Urine Specific [place] 1.025 (1.005-1.035) Urine Protein Negative (NEGATIVE) Urine Glucose (UA) Negative (NEGATIVE) Urine Ketones Negative (NEGATIVE) Urine Blood 2+ (NEGATIVE) H Urine Nitrite Negative (NEGATIVE) Urine Bilirubin Negative (NEGATIVE) Urine Urobilinogen Normal MG/DL (0.0-1.0) Urine Leukocyte Esterase Negative (NEGATIVE) Urine RBC 2-4 /HPF (0 - 2) H Urine WBC 0-2 /HPF (0 - 2) Urine Squamous Epithelial Cells Few /LPF (NONE/OCC) Urine Bacteria Few /HPF (NONE) Sodium Level 140 MMOL/L (136-145) Potassium Level 3.3 MMOL/L (3.5-5.1) L Chloride Level 101 MMOL/L (98-107) Carbon Dioxide Level 28 MMOL/L (21-32) Anion Gap 11 mmol/L (5-15) Blood Urea Nitrogen 13 mg/dL (7-18) Creatinine 1.4 MG/DL (0.55-1.30) H Estimat Glomerular Filtration Rate 45.8 mL/min (>60) Glucose Level 130 MG/DL (74-106) H Lactic Acid Level 2.50 mmol/L (0.4-2.0) H 1.50 mmol/L (0.66-2.22) Calcium Level 9.2 MG/DL (8.5-10.1) Magnesium Level 1.9 MG/DL (1.8-2.4) Total Bilirubin 1.0 MG/DL (0.2-1.0) Aspartate Amino Transf (AST/SGOT) 47 U/L (15-37) H Alanine Aminotransferase (ALT/SGPT) 59 U/L (12-78) Alkaline Phosphatase 94 U/L (46-116) Troponin I 0.000 ng/mL (0.000-0.056) Pro-B-Type Natriuretic Peptide 8 pg/mL (0-125) Total Protein 8.0 G/DL (6.4-8.2) Albumin 4.4 G/DL (3.4-5.0) Globulin 3.6 g/dL Albumin/Globulin Ratio 1.2 (1.0-2.7) POC Whole Blood Glucose Pending Test 03/05/20 12:30 Troponin I Pending Microbiology Date/Time Source Procedure Growth Status 03/05/20 03:33 Nasopharynx SARS-CoV-2 RdRp Gene Assay - Final Complete Rocco Davison MD Mar 05, 2020 13:53
--- NOTE | 2020-03-05 14:01 | History & Physical ---
History and Physical History & Physicial Wally Pearson MD Mar 05, 2020 14:01
[2020-03-05 16:00] VITALS: BP 115/55
[2020-03-05 20:00] VITALS: BP 124/70
--- NOTE | 2020-03-05 20:00 | NUR ---
NURSE NOTES: RECEIVED PATIENT LYING IN BED, AWAKE, ALERT/ORIENTED X4, VERBALLY RESPONSIVE, DENIES PAIN. NO SIGNS AND SYMPTOMS OF ACUTE CARDIO RESPIRATORY DISTRESS/SHORTNESS OF BREATH, DENIES CHEST PAIN, TRACE EDEMA NOTED TO BILATERAL ANKLES/NON PITTING, ENCOURAGED ELEVATION, VERBALIZED UNDERSTANDING. IV INTACT TO RIGHT AC/GAUGE 20, SALINE LOCK, NO REDNESS/SWELLING NOTED. ABDOMEN OBESE/AUDIBLE BOWEL SOUNDS/NON TENDER, NO N/V/D. CONTINENT OF B/B, BATHROOM PRIVILEGES, SAFETY MAINTAINED. SIDE RAILS UP X2 FOR MOBILITY, BED IN LOWEST POSITION FOR SAFETY, ENCOURAGED PATIENT TO UTILIZE CALL LIGHT FOR ASSISTANCE, VERBALIZED UNDERSTANDING. DCP HOME / IF TOLERATING PO INTAKE. CONTINUE WITH CURRENT PLAN OF CARE. NAD.
[2020-03-05] MEDS: HYDROcodone/Acetamin 7.5/325 tab ORAL PRN (20:51)
[2020-03-05] MEDS: Atorvastatin 20mg tab ORAL SCH (20:51)
--- NOTE | 2020-03-05 22:00 | Consultation ---
DATE OF CONSULTATION: 03/05/2020 CARDIOLOGY CONSULTATION CONSULTING PHYSICIAN: Rocco Davison MD. REFERRING PHYSICIAN: Loc Waite MD. REASON FOR REFERRAL: Chest pain. HISTORY OF PRESENT ILLNESS: This is a 64-year-old female who is admitted to the hospital because of various symptoms as delineated below. The patient is on a COVID isolation status remaining on person under investigation for COVID. Therefore, she is being seen, records have been reviewed, and information is obtained purely from the records. The emergency room physician records indicates the patient with history of multiple problems, chronically walks with a walker, presented to the emergency room complaining of chest pain and shortness of breath and chest tightness and a nonproductive cough and upper back pain for the past week. She told the emergency room physician that she felt like this is her COPD exacerbation. The patient complains of exertion-related chest pain. She has not had an aspirin or any blood thinners before. She has not had any fevers or chills at home and she apparently denied any chest pains or nausea or vomiting. She has had number of ER visits over the past few years here at [facility]. PAST MEDICAL HISTORY: Prior hospitalization for sepsis, removal of kidney stones, hypertension, hyperlipidemia, morbid obesity, and diabetes mellitus. She has had history of COPD as well. ALLERGIES: She is reportedly allergic to erythromycin. SOCIAL HISTORY: She has no prior history of smoking or alcohol. REVIEW OF SYSTEMS: According to the emergency room physician's data as mentioned above. CARDIAC: Exertional chest pains and chest tightness. PULMONARY: Positive for nonproductive cough and COPD and shortness of breath on exertion. GASTROINTESTINAL: No abdominal pain or nausea or vomiting. CONSTITUTIONAL: Denies any fevers or chills or night sweats. PHYSICAL EXAMINATION: VITAL SIGNS: Reported by the emergency room physician. Blood pressure of 149/87. HEENT: Head was atraumatic. NECK: Normal range of motion. No masses were noted. RESPIRATORY: Chest was nontender. She was speaking full sentences, although she was apparently reported being tachypneic. CARDIAC: Regular rate and rhythm. ABDOMEN: Normal bowel sounds. Nontender, soft, nondistended. No guarding. No rebound. EXTREMITIES: Apparently showed no evidence of edema and no calf tenderness was noted by the emergency room physician. LABORATORY AND DIAGNOSTIC DATA: Her electrocardiogram, normal sinus rhythm, normal QRS axis, nonspecific T-wave changes. This remains relatively unchanged since September of 2019's EKG. Labs, white count is 8, hemoglobin is 12.8, and platelet count of 264. PH is 7.44, pCO2 of 39, pO2 of 110, and bicarbonate of 26. Lactic acid of 2.5, subsequently 1.5. Troponin of 0 at the time of admission in the emergency room. Second one is pending at this time. Sodium 140, potassium 3.3, chloride 101, bicarb 28, BUN of 13, creatinine 1.4, and glucose of 130. Albumin of 4.4. A chest x-ray performed in the emergency room shows no acute pulmonary disease. Echocardiogram was performed, preliminary report in the chart from today showed a technically difficult study. Ejection fraction of 60 to 65%. No significant valvular regurgitation and mild LV diastolic dysfunction. The patient was seen through [facility] and did not appear to be any respiratory distress. She was overweight in appearance. ASSESSMENT AND PLAN: 1. Chest pain. 2. COPD. 3. Diabetes. 4. Hypertension. 5. Obesity. This patient was seen in cardiac consultation. The patient has no electrocardiographic abnormality. She would require further EKG and cardiac enzymes checked on a serial basis. Depending on results of those testing, further evaluation may become necessary at some point. In the meantime, she will be treated for underlying COPD exacerbation. Her medications for her hypertension and diabetes should be continued as she was receiving at home. For the time being, aspirin has been provided. Because of her diabetes, she should be on some statins and I do not see statins listed on her prior to admission medications. Therefore, I will start her on some statins for the time being and I will follow the patient along with you. Rocco Davison M.D. DR: BUFFY JOB#: [id number] CC:
--- NOTE | 2020-03-05 22:45 | History and Physical Report ---
DATE OF ADMISSION: 03/05/2020 CHIEF COMPLAINT: Shortness of breath and chest pain. HISTORY OF PRESENT ILLNESS: This is a 64-year-old very delightful female with past medical history significant for COPD, diabetes type 2, hypertension, morbid obesity, osteoarthritis of the right knee, status post total knee arthroplasty, who presented to the hospital complaining about shortness of breath associated with chest pain, chest tightness, nonproductive cough, and upper back pain. She has been progressively worsening over the past week. She stated that she had difficulty swallowing and her shortness of breath has become progressively worsening. Shortly after initial evaluation in the emergency department, the patient was admitted to the hospital with exertional chest pain as well as acute COPD exacerbation. PAST MEDICAL HISTORY/PAST SURGICAL HISTORY: As above. History of COPD, diabetes type 2, hypertension, morbid obesity, history of severe osteoarthritis of the right knee, status post total knee arthroplasty. The patient also has history of dyslipidemia, panic attack with anxiety. Denies any history of cancer or seizure disorder. MEDICATIONS: At home: Metformin, nifedipine, Januvia, tizanidine, and Diovan. ALLERGIES: To erythromycin. SOCIAL HISTORY: Denies any smoking, alcohol, or drugs. FAMILY HISTORY: Noncontributory. REVIEW OF SYSTEMS: Mostly as above. Denies any dysuria, frequency, or hematuria. Denies any hemoptysis or hematochezia. Complained about shortness of breath and cough. Denies any loss of consciousness. Denies any fall or head trauma. Complained about sore throat and difficulty swallowing. PHYSICAL EXAMINATION: VITAL SIGNS: On admission, the patient has temperature of 98.2, pulse of 92, respirations 22, blood pressure 149/87. GENERAL: The patient is awake, responsive, and in no acute distress. HEAD AND NECK: Pupils equal and reactive to light. Extraocular movements intact. NECK: Supple. No JVD. LUNGS: Good air entry. No wheezing or rales. Decreased air in bases. HEART: S1, S2. Distant heart sounds. No murmur or gallops. ABDOMEN: Soft, nondistended, nontender, morbidly obese. EXTREMITIES: No cyanosis, clubbing, or edema. Surgical scar was noted on the right knee from the previous arthroplasty. NEUROLOGIC: Cranial nerves II through XII grossly intact. Motor is 5/5 in all extremities. Gait is intact. RECTAL: Refused and deferred. GENITOURINARY: Refused and deferred. PSYCHIATRIC: Mood and affect is intact. LABORATORY AND DIAGNOSTIC DATA: Laboratory on admission, WBC of 8.0, hemoglobin 12, hematocrit 39, and platelet is 264,000. ABG, pH of 7.44, pCO2 of 39, pO2 of 109, saturating 97. PT of 10, INR 1.0, PTT of 25, D-dimer of 1.09. UA is +2 blood, 2-4 rbc's, negative leukocytes. First and second troponins 0.00. Sodium 140, potassium 3.3, chloride 101, bicarb 28, BUN 13, creatinine 1.4, GFR is 45, and glucose is 130. Magnesium is 1.9. Total bilirubin of 1.0, AST of 47, ALT of 59, alkaline phosphatase 94. BNP is pending. The patient's COVID-19 rapid test is negative. Chest x-ray noted to be no acute cardiopulmonary disease. ASSESSMENT: 1. Shortness of breath and chest pain, possible acute coronary syndrome. 2. COPD. 3. Morbid obesity. 4. Diabetes type 2. 5. Hypertension. 6. Dyslipidemia. 7. Renal stent placement. 8. Chronic kidney disease. 9. Severe osteoarthritis of right knee. PLAN: Admit the patient to monitored unit. We will follow up with Dr. Waite, consultation for Pulmonary/Critical Care as well as Dr. Davison from Cardiology. Monitor laboratory and start the patient on broad-spectrum antibiotic, Rocephin. Monitor blood glucose level closely. Nebulizer treatment. Code status is Full Code. DVT prophylaxis, heparin subcu. Wally Pearson M.D. DR: Simona JOB#: [id number] CC:
[2020-03-06] VITALS: BP 149/62
--- NOTE | 2020-03-06 02:15 | NUR ---
NURSE NOTES: RECEIVED TELEPHONE CALL FROM LAB TO RESEND SPUTUM CULTURE; FIRST SPECIMEN CONSISTED OF [facility] ONLY, PATIENT MADE AWARE, PROVIDED WITH NEW SPECIMEN CONTAINER.
[2020-03-06 04:00] VITALS: BP 147/73
--- NOTE | 2020-03-06 06:12 | NUR ---
NURSE NOTES: BLOOD GLUCOSE LEVEL MONITORED VIA GLUCOMETER WITH RESULT 130MG/DL, NO SLIDING SCALE COVERAGE ADM.
--- NOTE | 2020-03-06 06:13 | NUR ---
NURSE NOTES: NO SIGNIFICANT CHANGE OF CONDITION NOTED THROUGHOUT THE NIGHT. SAFETY MAINTAINED. NAD.
[2020-03-06] MEDS: NovoLOG Insulin Flexpen SUBQ SCH ×4 (06:19→20:04)
--- NOTE | 2020-03-06 07:25 | NUR ---
NURSE NOTES: RECEIVED PATIENT SITTING ON THE EDGE OF THE BED, AWAKE, ALERT/ORIENTED X4, AMBULATORY WITHOUT ANY DISTRESS NOTED. ABLE TO MAKE NEEDS KNOWN, DENIES PAIN/DISCOMFORT NOTED. NO SIGNS AND SYMPTOMS OF ACUTE CARDIO-RESPIRATORY DISTRESS/SHORTNESS OF BREATH, DENIES CHEST PAIN, TRACE EDEMA NOTED TO BILATERAL ANKLES/NON PITTING, ENCOURAGED TO ELEVATE BLE, VERBALIZED UNDERSTANDING. IV INTACT TO RIGHT AC/GAUGE 20, SALINE LOCK, NO REDNESS/SWELLING NOTED. ABDOMEN OBESE/AUDIBLE BOWEL SOUNDS/NON TENDER, NO N/V/D. BATHROOM PRIVILEGES, SAFETY MAINTAINED. SIDE RAILS UP X2 FOR MOBILITY, BED IN LOWEST POSITION FOR SAFETY, ENCOURAGED PATIENT TO UTILIZE CALL LIGHT FOR ASSISTANCE, VERBALIZED UNDERSTANDING. BED BRAKES ENGAGED AND LOCKED @ ALL TIMES. CONTINUE WITH CURRENT PLAN OF CARE.
--- NOTE | 2020-03-06 07:28 | NUR ---
HAND-OFF: Report given to JAZIEL MILIAN.
[2020-03-06 08:00] VITALS: BP 151/76
[2020-03-06 08:03] LABS: BASOPHILS % (AUTO) 0.8 % (0.0-2.0); EOSINOPHILS % (AUTO) 2.6 % (0.0-3.0); HEMATOCRIT 37.6 % (37.0-47.0); HEMOGLOBIN 11.9 G/DL (12.0-16.0); LYMPHOCYTES % (AUTO) 36.5 % (20.0-45.0); MEAN CORPUSCULAR VOLUME 89 FL (80-99); MONOCYTES % (AUTO) 7.9 % (1.0-10.0); NEUTROPHILS % (AUTO) 52.2 % (45.0-75.0); PLATELET COUNT 238 K/UL (150-450); RED BLOOD COUNT 4.21 M/UL (4.20-5.40); RED CELL DISTRIBUTION WIDTH 12.8 % (11.6-14.8); WHITE BLOOD COUNT 6.2 K/UL (4.8-10.8)
[2020-03-06 08:08] LABS: ALANINE AMINOTRANSFERASE 50 U/L (12-78); ALBUMIN 3.7 G/DL (3.4-5.0); ALBUMIN/GLOBULIN RATIO 1.1 (1.0-2.7); ALKALINE PHOSPHATASE 78 U/L (46-116); ASPARTATE AMINO TRANSFERASE 38 U/L (15-37); BILIRUBIN,TOTAL 0.9 MG/DL (0.2-1.0); BLOOD UREA NITROGEN 10 mg/dL (7-18); CALCIUM 8.7 MG/DL (8.5-10.1); CARBON DIOXIDE 28 MMOL/L (21-32); CREATININE 1.1 MG/DL (0.55-1.30)
--- NOTE | 2020-03-06 08:12 | Pulmonology Progress Note ---
Subjective Allergies: Coded Allergies: ERYTHROMYCIN BASE (Verified Allergy, Unknown, 09/28/18) Subjective some SOB and cough no CP afebrile remains in isolation , 2nd COVID pending Objective Last 24 Hour Vital Signs Date Time Temp Pulse Resp B/P (MAP) Pulse Ox O2 Delivery O2 Flow Rate FiO2 03/06/20 04:00 77 03/06/20 04:00 96.6 75 20 147/73 (97) 99 03/06/20 00:00 99.9 78 20 149/62 (91) 98 03/06/20 00:00 90 03/05/20 21:21 98.1 03/05/20 21:00 Nasal Cannula 2.0 03/05/20 20:33 100 Nasal Cannula 2.0 28 03/05/20 20:00 98.1 81 22 124/70 (88) 100 03/05/20 20:00 84 03/05/20 16:00 84 03/05/20 16:00 97.7 76 20 115/55 (75) 100 03/05/20 12:00 97.5 93 20 118/57 (77) 95 03/05/20 12:00 86 03/05/20 09:22 96 151/88 03/05/20 08:25 Nasal Cannula 2.0 Intake and Output 03/05/20 03/06/20 19:00 07:00 Intake Total 420 ml Balance 420 ml Intake Oral 420 ml # Voids 3 General Appearance: no acute distress, other - morbidly obese HEENT: normocephalic, atraumatic, anicteric, mucous membranes moist, PERRL Respiratory: no respiratory distress, no accessory muscle use, decreased breath sounds Cardiovascular: normal peripheral pulses, normal rate Abdomen: soft, non tender - obese Extremities: no edema, pedal pulses normal Neurologic: no motor/sensory deficits, alert, oriented x 3, responsive Musculoskeletal: normal muscle bulk Microbiology Date/Time Source Procedure Growth Status 03/05/20 03:33 Nasopharynx SARS-CoV-2 RdRp Gene Assay - Final Complete Laboratory Tests 03/05/20 12:30: Troponin I 0.000 03/05/20 20:53: POC Whole Blood Glucose [Pending] 03/06/20 05:59: POC Whole Blood Glucose 130H 03/06/20 06:40: Troponin I [Pending], White Blood Count 6.2, Red Blood Count 4.21, Hemoglobin 11.9L, Hematocrit 37.6, Mean Corpuscular Volume 89, Mean Corpuscular Hemoglobin 28.4, Mean Corpuscular Hemoglobin Concent 31.8L, Red Cell Distribution Width 12.8, Platelet Count 238, Mean Platelet Volume 7.3, Neutrophils (%) (Auto) 52.2 , Lymphocytes (%) (Auto) 36.5, Monocytes (%) (Auto) 7.9, Eosinophils (%) (Auto) 2.6, Basophils (%) (Auto) 0.8, Sodium Level [Pending], Potassium Level [Pending] , Chloride Level [Pending], Carbon Dioxide Level [Pending], Blood Urea Nitrogen [Pending], Creatinine [Pending], Estimat Glomerular Filtration Rate [Pending], Glucose Level [Pending], Calcium Level [Pending], Total Bilirubin [Pending], Aspartate Amino Transf (AST/SGOT) [Pending], Alanine Aminotransferase (ALT/SGPT ) [Pending], Alkaline Phosphatase [Pending], Total Protein [Pending], Albumin [ Pending], Globulin [Pending] Current Medications Medications (Trade) Dose Ordered Sig/Sergio Route PRN Reason Start Time Stop Time Status Last Admin Dose Admin Acetaminophen (Tylenol) 650 mg Q4H PRN ORAL fever 03/05/20 08:45 04/04/20 08:44 Acetaminophen/ Hydrocodone Bitart ([place] 7.5/325) 1 tab Q6H PRN ORAL For Pain 03/05/20 11:45 03/12/20 11:44 03/05/20 20:51 Albuterol/ Ipratropium (Albuterol/ Ipratropium) 3 ml Q4H PRN HHN dyspnea 03/05/20 08:45 03/10/20 08:44 Atorvastatin Calcium (Lipitor) 20 mg BEDTIME ORAL 03/05/20 21:00 06/03/20 20:59 03/05/20 20:51 Ceftriaxone Sodium 1 gm/ Dextrose 55 ml @ 110 mls/hr Q24H IVPB 03/05/20 12:00 03/12/20 11:59 03/05/20 12:00 Clonidine HCl (Catapres Tab) 0.1 mg Q4H PRN ORAL sbp more than 160 03/05/20 08:45 06/03/20 08:44 Dextrose (Dextrose 50%) 25 ml Q30M PRN IV Hypoglycemia 03/05/20 08:45 06/03/20 08:44 Dextrose (Dextrose 50%) 50 ml Q30MIN PRN IV Hypoglycemia 03/05/20 08:45 06/03/20 08:44 Heparin Sodium (Porcine) (Heparin 5000 units/ml) 5,000 units EVERY 12 HOURS SUBQ 03/05/20 09:00 04/19/20 08:59 03/05/20 20:52 Insulin Aspart (NovoLOG) BEFORE MEALS AND HS SUBQ 03/05/20 11:30 06/03/20 11:29 Morphine Sulfate (Morphine Sulfate) 2 mg Q4H PRN IV For Pain 03/05/20 12:00 03/12/20 08:44 Nifedipine (Procardia XL) 60 mg DAILY ORAL 03/05/20 09:00 04/04/20 08:59 03/05/20 09:22 Nitroglycerin (Ntg) 0.4 mg Q5M X 3 DOSES PRN SL Prn Chest Pain 03/05/20 08:45 04/04/20 08:44 Ondansetron HCl (Zofran) 4 mg Q6H PRN IVP Nausea & Vomiting 03/05/20 08:45 04/04/20 08:44 Paroxetine HCl (Paxil) 20 mg DAILY ORAL 03/06/20 09:00 04/05/20 08:59 Promethazine HCl/ Codeine (Phenergan with Codeine) 5 ml Q6H PRN ORAL cough 03/05/20 08:45 04/04/20 08:44 Sitagliptin Phosphate (Januvia) 100 mg DAILY ORAL 03/05/20 09:00 04/04/20 08:59 03/05/20 09:22 Temazepam (Restoril) 15 mg HSPRN PRN ORAL Insomnia 03/05/20 08:45 03/12/20 08:44 03/05/20 23:36 Tizanidine HCl (Zanaflex) 2 mg DAILY ORAL 03/05/20 10:00 06/03/20 09:59 03/05/20 10:18 Assessment/Plan Assessment/Plan ASSESSMENT CP, r/o ACS COPD , possible exacerbation DM HTN Morbid obesity Dyslipidemia CKD with renal stent placement Severe OA R knee PLAN OF CARE tele isolation rapid COVID NGT another COVID pending CXR -> no acute findings O2 PRN titrate , to keep sat above 92%, pulmonary toilet a/tussive prn empiric abx fup with cx, SCX if able CPT bronchodilator PRN VQ scan pending 1st troponin NGT, EKG no acute ischemic changes serial troponin cardio follows Echo with pEF 60-65%, no evidence of WMA RVSP -30 c/w mild pulmonary hypertension BS management with Januvia, SSI as needed DVT prophylaxis started on statin per cardio, given DM BP management with CCB, clonidine prn pain management supportive care case discussed and evaluated by supervising physician Debra Quiroga NP Mar 06, 2020 08:12
[2020-03-06 08:27] LABS: CHLORIDE 106 MMOL/L (98-107); POTASSIUM 3.3 MMOL/L (3.5-5.1); SODIUM 144 MMOL/L (136-145)
[2020-03-06] MEDS: HYDROcodone/Acetamin 7.5/325 tab ORAL PRN ×3 (08:28→22:42)
[2020-03-06] MEDS: PARoxetine HCL 20mg tab ORAL SCH (08:29)
[2020-03-06] MEDS: Heparin 5000 units/ml inj SUBQ SCH ×2 (08:30→20:03)
[2020-03-06 12:01] VITALS: BP 112/54
[2020-03-06] MEDS: cefTRIAXone 1 GM in D5W 55 ML IVPB SCH (12:02)
--- NOTE | 2020-03-06 15:00 | NUR ---
NURSE NOTES: NOTIFIED DR GUILLERMO FOR THE K+3.3. AWAITING FOR A CALLBACK. WILL CONT TO MONITOR. Addendum: 03/06/20 at 1910 by ELLEN ENCARNACION LVN new order obtained.
--- NOTE | 2020-03-06 15:31 | Internal Med Progress Note ---
Subjective Date of Service: Mar 06, 2020 Physician Name Donald Gao Attending Physician Wally Pearson MD Current Medications Medications (Trade) Dose Ordered Sig/Sergio Route PRN Reason Start Time Stop Time Status Last Admin Dose Admin Acetaminophen (Tylenol) 650 mg Q4H PRN ORAL fever 03/05/20 08:45 04/04/20 08:44 Acetaminophen/ Hydrocodone Bitart ([place] 7.5/325) 1 tab Q6H PRN ORAL For Pain 03/05/20 11:45 03/12/20 11:44 03/06/20 15:10 Albuterol/ Ipratropium (Albuterol/ Ipratropium) 3 ml Q4H PRN HHN dyspnea 03/05/20 08:45 03/10/20 08:44 Atorvastatin Calcium (Lipitor) 20 mg BEDTIME ORAL 03/05/20 21:00 06/03/20 20:59 03/05/20 20:51 Ceftriaxone Sodium 1 gm/ Dextrose 55 ml @ 110 mls/hr Q24H IVPB 03/05/20 12:00 03/12/20 11:59 03/06/20 12:02 Clonidine HCl (Catapres Tab) 0.1 mg Q4H PRN ORAL sbp more than 160 03/05/20 08:45 06/03/20 08:44 Dextrose (Dextrose 50%) 25 ml Q30M PRN IV Hypoglycemia 03/05/20 08:45 06/03/20 08:44 Dextrose (Dextrose 50%) 50 ml Q30MIN PRN IV Hypoglycemia 03/05/20 08:45 06/03/20 08:44 Heparin Sodium (Porcine) (Heparin 5000 units/ml) 5,000 units EVERY 12 HOURS SUBQ 03/05/20 09:00 04/19/20 08:59 03/06/20 08:30 Insulin Aspart (NovoLOG) BEFORE MEALS AND HS SUBQ 03/05/20 11:30 06/03/20 11:29 Morphine Sulfate (Morphine Sulfate) 2 mg Q4H PRN IV For Pain 03/05/20 12:00 03/12/20 08:44 Nifedipine (Procardia XL) 60 mg DAILY ORAL 03/05/20 09:00 04/04/20 08:59 03/06/20 08:29 Nitroglycerin (Ntg) 0.4 mg Q5M X 3 DOSES PRN SL Prn Chest Pain 03/05/20 08:45 04/04/20 08:44 Ondansetron HCl (Zofran) 4 mg Q6H PRN IVP Nausea & Vomiting 03/05/20 08:45 04/04/20 08:44 Paroxetine HCl (Paxil) 20 mg DAILY ORAL 03/06/20 09:00 04/05/20 08:59 03/06/20 08:29 Promethazine HCl/ Codeine (Phenergan with Codeine) 5 ml Q6H PRN ORAL cough 03/05/20 08:45 04/04/20 08:44 Sitagliptin Phosphate (Januvia) 100 mg DAILY ORAL 03/05/20 09:00 04/04/20 08:59 03/06/20 08:29 Temazepam (Restoril) 15 mg HSPRN PRN ORAL Insomnia 03/05/20 08:45 03/12/20 08:44 03/05/20 23:36 Tizanidine HCl (Zanaflex) 2 mg DAILY ORAL 03/05/20 10:00 06/03/20 09:59 03/06/20 08:29 Allergies: Coded Allergies: ERYTHROMYCIN BASE (Verified Allergy, Unknown, 09/28/18) ROS Limited/Unobtainable: No Constitutional: Reports: no symptoms HEENT: Reports: no symptoms Cardiovascular: Reports: chest pain Respiratory: Reports: shortness of breath Gastrointestinal/Abdominal: Reports: no symptoms Genitourinary: Reports: no symptoms Neurologic/Psychiatric: Reports: no symptoms Subjective 64 YO M admitted with shortness of breath and chest pain. Now COPD exacerbation. Cover for Leana Arias-Dr Pearson Objective Last Vital Signs Date Time Temp Pulse Resp B/P (MAP) Pulse Ox O2 Delivery O2 Flow Rate FiO2 03/06/20 12:01 97.7 78 18 112/54 (73) 98 03/06/20 09:00 Nasal Cannula 2.0 03/06/20 07:58 28 Laboratory Tests Test 03/05/20 20:53 03/06/20 05:59 03/06/20 06:40 03/06/20 11:41 POC Whole Blood Glucose Pending 130 MG/DL (74-106) H 150 MG/DL (74-106) H White Blood Count 6.2 K/UL (4.8-10.8) Red Blood Count 4.21 M/UL (4.20-5.40) Hemoglobin 11.9 G/DL (12.0-16.0) L Hematocrit 37.6 % (37.0-47.0) Mean Corpuscular Volume 89 FL (80-99) Mean Corpuscular Hemoglobin 28.4 PG (27.0-31.0) Mean Corpuscular Hemoglobin Concent 31.8 G/DL (32.0-36.0) L Red Cell Distribution Width 12.8 % (11.6-14.8) Platelet Count 238 K/UL (150-450) Mean Platelet Volume 7.3 FL (6.5-10.1) Neutrophils (%) (Auto) 52.2 % (45.0-75.0) Lymphocytes (%) (Auto) 36.5 % (20.0-45.0) Monocytes (%) (Auto) 7.9 % (1.0-10.0) Eosinophils (%) (Auto) 2.6 % (0.0-3.0) Basophils (%) (Auto) 0.8 % (0.0-2.0) Sodium Level 144 MMOL/L (136-145) Potassium Level 3.3 MMOL/L (3.5-5.1) L Chloride Level 106 MMOL/L (98-107) Carbon Dioxide Level 28 MMOL/L (21-32) Blood Urea Nitrogen 10 mg/dL (7-18) Creatinine 1.1 MG/DL (0.55-1.30) Estimat Glomerular Filtration Rate > 60 mL/min (>60) Glucose Level 134 MG/DL (74-106) H Calcium Level 8.7 MG/DL (8.5-10.1) Total Bilirubin 0.9 MG/DL (0.2-1.0) Aspartate Amino Transf (AST/SGOT) 38 U/L (15-37) H Alanine Aminotransferase (ALT/SGPT) 50 U/L (12-78) Alkaline Phosphatase 78 U/L (46-116) Troponin I 0.000 ng/mL (0.000-0.056) Total Protein 7.1 G/DL (6.4-8.2) Albumin 3.7 G/DL (3.4-5.0) Globulin 3.4 g/dL Albumin/Globulin Ratio 1.1 (1.0-2.7) Microbiology Date/Time Source Procedure Growth Status 03/05/20 06:00 Nasopharynx Coronavirus COVID-19 PCR ([place]) - Final Complete 03/05/20 03:33 Nasopharynx SARS-CoV-2 RdRp Gene Assay - Final Complete Intake and Output 03/05/20 03/06/20 19:00 07:00 Intake Total 420 ml Balance 420 ml Intake Oral 420 ml # Voids 3 Objective PHYSICAL EXAMINATION: GENERAL: The patient is awake, responsive, and in no acute distress. HEAD AND NECK: Pupils equal and reactive to light. Extraocular movements intact. NECK: Supple. No JVD. LUNGS: Good air entry. No wheezing or rales. Decreased air in bases. HEART: S1, S2. Distant heart sounds. No murmur or gallops. ABDOMEN: Soft, nondistended, nontender, morbidly obese. EXTREMITIES: No cyanosis, clubbing, or edema. Surgical scar was noted on the right knee from the previous arthroplasty. NEUROLOGIC: Cranial nerves II through XII grossly intact. Motor is 5/5 in all extremities. Gait is intact. RECTAL: Refused and deferred. GENITOURINARY: Refused and deferred. PSYCHIATRIC: Mood and affect is intact. Assessment/Plan Assessment/Plan ASSESSMENT: 1. Shortness of breath and chest pain, possible acute coronary syndrome. 2. COPD. 3. Morbid obesity. 4. Diabetes type 2. 5. Hypertension. 6. Dyslipidemia. 7. Renal stent placement. 8. Chronic kidney disease. 9. Severe osteoarthritis of right knee. PLAN: Admit the patient to monitored unit. We will follow up with Dr. Waite, consultation for Pulmonary/Critical Care as well as Dr. Davison from Cardiology. Monitor laboratory and start the patient on broad-spectrum antibiotic, Rocephin. Monitor blood glucose level closely. Nebulizer treatment. Code status is Full Code. DVT prophylaxis, heparin subcu. Donald Gao MD Mar 06, 2020 15:31
[2020-03-06 16:01] VITALS: BP 147/69
[2020-03-06] MEDS ORDERED: metFORMIN 500mg tab ORAL SCH (16:30)
--- NOTE | 2020-03-06 16:51 | Cardiology Progress Note ---
Assessment/Plan Assessment/Plan stable from [facility], will d/w nurse her home medications to control her anxiety as per Dr Davison, dobutamine echo Sunday Subjective Subjective the patient is complaing on dyspnea due to panic attack, she wants to take her home medications Objective Last 24 Hour Vital Signs Date Time Temp Pulse Resp B/P (MAP) Pulse Ox O2 Delivery O2 Flow Rate FiO2 03/06/20 16:02 98 03/06/20 16:01 98.2 87 18 147/69 (95) 97 03/06/20 15:40 97.7 03/06/20 12:01 97.7 78 18 112/54 (73) 98 03/06/20 12:00 79 03/06/20 09:00 Nasal Cannula 2.0 03/06/20 08:58 96.6 03/06/20 08:29 80 159/76 03/06/20 08:00 82 03/06/20 08:00 98.1 80 21 151/76 (101) 99 03/06/20 07:58 100 Nasal Cannula 2.0 28 03/06/20 04:00 77 03/06/20 04:00 96.6 75 20 147/73 (97) 99 03/06/20 00:00 99.9 78 20 149/62 (91) 98 03/06/20 00:00 90 03/05/20 21:00 Nasal Cannula 2.0 03/05/20 20:33 100 Nasal Cannula 2.0 28 03/05/20 20:00 98.1 81 22 124/70 (88) 100 03/05/20 20:00 84 General Appearance: no apparent distress EENT: PERRL/EOMI Neck: no JVD Rhythm: NSR Cardiovascular: regular rhythm Respiratory/Chest: crackles/rales, expiratory wheezing Abdomen: no organomegaly Intake and Output 03/05/20 03/06/20 19:00 07:00 Intake Total 420 ml Balance 420 ml Intake Oral 420 ml # Voids 3 Laboratory Tests Test 03/05/20 20:53 03/06/20 05:59 03/06/20 06:40 03/06/20 11:41 POC Whole Blood Glucose Pending 130 MG/DL (74-106) H 150 MG/DL (74-106) H White Blood Count 6.2 K/UL (4.8-10.8) Red Blood Count 4.21 M/UL (4.20-5.40) Hemoglobin 11.9 G/DL (12.0-16.0) L Hematocrit 37.6 % (37.0-47.0) Mean Corpuscular Volume 89 FL (80-99) Mean Corpuscular Hemoglobin 28.4 PG (27.0-31.0) Mean Corpuscular Hemoglobin Concent 31.8 G/DL (32.0-36.0) L Red Cell Distribution Width 12.8 % (11.6-14.8) Platelet Count 238 K/UL (150-450) Mean Platelet Volume 7.3 FL (6.5-10.1) Neutrophils (%) (Auto) 52.2 % (45.0-75.0) Lymphocytes (%) (Auto) 36.5 % (20.0-45.0) Monocytes (%) (Auto) 7.9 % (1.0-10.0) Eosinophils (%) (Auto) 2.6 % (0.0-3.0) Basophils (%) (Auto) 0.8 % (0.0-2.0) Sodium Level 144 MMOL/L (136-145) Potassium Level 3.3 MMOL/L (3.5-5.1) L Chloride Level 106 MMOL/L (98-107) Carbon Dioxide Level 28 MMOL/L (21-32) Blood Urea Nitrogen 10 mg/dL (7-18) Creatinine 1.1 MG/DL (0.55-1.30) Estimat Glomerular Filtration Rate > 60 mL/min (>60) Glucose Level 134 MG/DL (74-106) H Calcium Level 8.7 MG/DL (8.5-10.1) Total Bilirubin 0.9 MG/DL (0.2-1.0) Aspartate Amino Transf (AST/SGOT) 38 U/L (15-37) H Alanine Aminotransferase (ALT/SGPT) 50 U/L (12-78) Alkaline Phosphatase 78 U/L (46-116) Troponin I 0.000 ng/mL (0.000-0.056) Total Protein 7.1 G/DL (6.4-8.2) Albumin 3.7 G/DL (3.4-5.0) Globulin 3.4 g/dL Albumin/Globulin Ratio 1.1 (1.0-2.7) Microbiology Date/Time Source Procedure Growth Status 03/05/20 06:00 Nasopharynx Coronavirus COVID-19 PCR ([place]) - Final Complete 03/05/20 03:33 Nasopharynx SARS-CoV-2 RdRp Gene Assay - Final Complete Kylah Schumacher MD Mar 06, 2020 16:51
--- NOTE | 2020-03-06 19:09 | NUR ---
HAND-OFF: Report given to Rian.
--- NOTE | 2020-03-06 19:15 | NUR ---
NURSE NOTES: Pt. received from JAZIEL Hutton. Pt. AAOx4, on NC 2L breathing even and unlabored, no indications of respiratory distress, complaints of tolerable pain and will continue to reassess. IV right AC 20g intact and patent saline locked. Pt. ambulatory with walker, advised to call for assistance to maintain safety, patient acknowledged and verbalized understanding. Bed is low and locked, side rails x2 up, and call light in reach.
[2020-03-06 20:00] VITALS: BP 141/80
[2020-03-06] MEDS: Atorvastatin 20mg tab ORAL SCH (20:01)
--- NOTE | 2020-03-06 22:30 | Consultation ---
DATE OF CONSULTATION: 03/06/2020 CONSULTING PHYSICIAN: Favio Sanchez MD REFERRING PHYSICIAN: Wally Pearson MD REASON FOR CONSULTATION: Diabetes management. HISTORY OF PRESENT ILLNESS: The patient is a 64-year-old female with a history of COPD, diabetes, hypertension, obesity, and arthritis, who presented to the hospital with shortness of breath and chest pain, admitted to rule out acute coronary syndrome as well as possibility of COPD exacerbation. Patient has been prescribed sliding scale insulin as well as Januvia and metformin. PAST MEDICAL HISTORY: 1. Type 2 diabetes. 2. COPD. 3. Morbid obesity. 4. Hypertension. 5. Severe osteoarthritis of the right knee. 6. Dyslipidemia. 7. Panic attack. PAST SURGICAL HISTORY: Right knee arthroplasty. ALLERGIES TO MEDICATION: Erythromycin. SOCIAL HISTORY: No smoking, alcohol, or drug use. FAMILY HISTORY: Noncontributory. REVIEW OF SYSTEMS: A 12-point review of systems was performed, and pertinent positives and negatives are mentioned in history of present illness. PHYSICAL EXAMINATION: VITAL SIGNS: Blood pressure 149/87, heart rate of 88, respiratory rate of 12. HEENT: Pupils are reactive to light. Sclerae are anicteric. NECK: No JVD. No thyromegaly. LUNGS: Wheezing. ABDOMEN: Positive bowel sounds. EXTREMITIES: No clubbing or cyanosis. Positive for edema. LABORATORY VALUES: WBC 8, hemoglobin 12, hematocrit 39, platelets of 364. Sodium 144, potassium 3.3, chloride 106, bicarb 28, BUN 10, creatinine 1.1, glucose of 134. Lactic acid was initially elevated at 225 and repeat is normal at 1.5. DIAGNOSES: 1. COPD exacerbation. 2. Chest pain. 3. Lactic acidosis, resolved. 4. Diabetes. PLAN: 1. Continue Januvia 100 mg daily. 2. May resume metformin with caution once lactic acidosis has resolved. 3. NovoLog sliding scale before meals and at bedtime. 4. Hypoglycemia protocol has been ordered. 5. Further adjustment according to blood glucose values. Thank you, Dr. Pearson, for the courtesy of this consultation. Favio Sanchez M.D. : RN/n JOB#: [id number] CC: BRANDON
[2020-03-06] MEDS: Morphine Sulfate 2mg/ml Inj(IV/IM USE ONLY) IV PRN (23:20)
[2020-03-07] VITALS (7 sets, daily range): BP systolic 119–172; BP diastolic 51–89
[2020-03-07] MEDS: NovoLOG Insulin Flexpen SUBQ SCH ×4 (06:06→20:54)
[2020-03-07 06:59] LABS: BASOPHILS % (AUTO) 0.8 % (0.0-2.0); EOSINOPHILS % (AUTO) 3.1 % (0.0-3.0); HEMATOCRIT 37.5 % (37.0-47.0); HEMOGLOBIN 12.1 G/DL (12.0-16.0); LYMPHOCYTES % (AUTO) 32.8 % (20.0-45.0); MEAN CORPUSCULAR VOLUME 90 FL (80-99); MONOCYTES % (AUTO) 8.2 % (1.0-10.0); NEUTROPHILS % (AUTO) 55.1 % (45.0-75.0); PLATELET COUNT 236 K/UL (150-450); RED BLOOD COUNT 4.16 M/UL (4.20-5.40); RED CELL DISTRIBUTION WIDTH 12.9 % (11.6-14.8); WHITE BLOOD COUNT 6.7 K/UL (4.8-10.8)
[2020-03-07 07:23] LABS: ANION GAP 7 mmol/L (5-15); BLOOD UREA NITROGEN 11 mg/dL (7-18); CARBON DIOXIDE 30 MMOL/L (21-32); CHLORIDE 107 MMOL/L (98-107); CREATININE 1.2 MG/DL (0.55-1.30); POTASSIUM 4.2 MMOL/L (3.5-5.1); SODIUM 144 MMOL/L (136-145)
--- NOTE | 2020-03-07 07:30 | NUR ---
NURSE NOTES: Received pt from ALFRED [place]/Rian. Pt is awake and alert, pt has NC 2LMP, Pt is on continues heart monitoring. pt has intact IV access RAC 20G SL. Pt is eating breakfast by observation. all needs attended, bed is locked and is in the lowest position, call light within easy reach. will continue to monitor.
--- NOTE | 2020-03-07 07:30 | NUR ---
HAND-OFF: Report given to ALFRED Kim. Pt. in stable condition.
--- NOTE | 2020-03-07 07:46 | Pulmonology Progress Note ---
Subjective ROS Limited/Unobtainable: No Allergies: Coded Allergies: ERYTHROMYCIN BASE (Verified Allergy, Unknown, 09/28/18) Subjective some SOB and cough no CP , no palpitations afebrile off isolation + back pain, + knee pain Objective Last 24 Hour Vital Signs Date Time Temp Pulse Resp B/P (MAP) Pulse Ox O2 Delivery O2 Flow Rate FiO2 03/07/20 06:08 153/89 (110) 03/07/20 04:43 172/82 03/07/20 04:00 74 03/07/20 04:00 97.5 67 18 172/82 (112) 97 03/07/20 00:00 97.5 74 20 144/69 (94) 95 03/07/20 00:00 71 03/06/20 21:00 Nasal Cannula 2.0 03/06/20 20:00 73 03/06/20 20:00 97.7 75 18 141/80 (100) 99 03/06/20 19:00 100 Nasal Cannula 2.0 28 03/06/20 16:02 98 03/06/20 16:01 98.2 87 18 147/69 (95) 97 03/06/20 15:40 97.7 03/06/20 12:01 97.7 78 18 112/54 (73) 98 03/06/20 12:00 79 03/06/20 09:00 Nasal Cannula 2.0 03/06/20 08:58 96.6 03/06/20 08:29 80 159/76 03/06/20 08:00 82 03/06/20 08:00 98.1 80 21 151/76 (101) 99 03/06/20 07:58 100 Nasal Cannula 2.0 28 Intake and Output 03/06/20 03/07/20 19:00 07:00 Intake Total 400 ml Balance 400 ml Intake Oral 400 ml # Voids 1 2 General Appearance: no acute distress, other - morbidly obese HEENT: normocephalic, atraumatic, anicteric, mucous membranes moist, PERRL Respiratory: no respiratory distress, no accessory muscle use, decreased breath sounds Cardiovascular: normal peripheral pulses, normal rate Abdomen: soft, non tender - obese Extremities: no edema, pedal pulses normal Neurologic: no motor/sensory deficits, alert, oriented x 3, responsive Musculoskeletal: normal muscle bulk Microbiology Date/Time Source Procedure Growth Status 03/05/20 03:20 Blood Blood Culture - Preliminary NO GROWTH AFTER 24 HOURS Resulted 03/05/20 03:00 Blood Blood Culture - Preliminary NO GROWTH AFTER 24 HOURS Resulted 03/05/20 06:00 Nasopharynx Coronavirus COVID-19 PCR ([place]) - Final Complete 03/05/20 03:33 Nasopharynx SARS-CoV-2 RdRp Gene Assay - Final Complete Laboratory Tests 03/06/20 11:41: POC Whole Blood Glucose 150H 03/07/20 05:50: White Blood Count 6.7, Red Blood Count 4.16L, Hemoglobin 12.1, Hematocrit 37.5, Mean Corpuscular Volume 90, Mean Corpuscular Hemoglobin 29.0, Mean Corpuscular Hemoglobin Concent 32.2, Red Cell Distribution Width 12.9, Platelet Count 236, Mean Platelet Volume 7.4, Neutrophils (%) (Auto) 55.1, Lymphocytes (%) (Auto) 32.8, Monocytes (%) (Auto) 8.2, Eosinophils (%) (Auto) 3.1H, Basophils (%) (Auto ) 0.8, Sodium Level 144, Potassium Level 4.2, Chloride Level 107, Carbon Dioxide Level 30, Anion Gap 7, Blood Urea Nitrogen 11, Creatinine 1.2, Estimat Glomerular Filtration Rate 54.9, Glucose Level 131H, Calcium Level 9.0, Troponin I 0.000 Current Medications Medications (Trade) Dose Ordered Sig/Sergio Route PRN Reason Start Time Stop Time Status Last Admin Dose Admin Acetaminophen (Tylenol) 650 mg Q4H PRN ORAL fever 03/05/20 08:45 04/04/20 08:44 Acetaminophen/ Hydrocodone Bitart ([place] 7.5/325) 1 tab Q6H PRN ORAL For Pain 03/05/20 11:45 03/12/20 11:44 03/06/20 22:42 Albuterol/ Ipratropium (Albuterol/ Ipratropium) 3 ml Q4H PRN HHN dyspnea 03/05/20 08:45 03/10/20 08:44 Atorvastatin Calcium (Lipitor) 20 mg BEDTIME ORAL 03/05/20 21:00 06/03/20 20:59 03/06/20 20:01 Ceftriaxone Sodium 1 gm/ Dextrose 55 ml @ 110 mls/hr Q24H IVPB 03/05/20 12:00 03/12/20 11:59 03/06/20 12:02 Clonazepam (KlonoPIN) 1 mg Q8H PRN ORAL For Anxiety 03/06/20 16:00 03/13/20 15:59 03/06/20 16:38 Clonidine HCl (Catapres Tab) 0.1 mg Q4H PRN ORAL sbp more than 160 03/05/20 08:45 06/03/20 08:44 03/07/20 04:43 Dextrose (Dextrose 50%) 25 ml Q30M PRN IV Hypoglycemia 03/05/20 08:45 06/03/20 08:44 Dextrose (Dextrose 50%) 50 ml Q30MIN PRN IV Hypoglycemia 03/05/20 08:45 06/03/20 08:44 Heparin Sodium (Porcine) (Heparin 5000 units/ml) 5,000 units EVERY 12 HOURS SUBQ 03/05/20 09:00 04/19/20 08:59 03/06/20 20:03 Insulin Aspart (NovoLOG) BEFORE MEALS AND HS SUBQ 03/05/20 11:30 06/03/20 11:29 03/06/20 20:04 Morphine Sulfate (Morphine Sulfate) 2 mg Q4H PRN IV For Pain 03/05/20 12:00 03/12/20 08:44 03/06/20 23:20 Nifedipine (Procardia XL) 60 mg DAILY ORAL 03/05/20 09:00 04/04/20 08:59 03/06/20 08:29 Nitroglycerin (Ntg) 0.4 mg Q5M X 3 DOSES PRN SL Prn Chest Pain 03/05/20 08:45 04/04/20 08:44 Ondansetron HCl (Zofran) 4 mg Q6H PRN IVP Nausea & Vomiting 03/05/20 08:45 04/04/20 08:44 Paroxetine HCl (Paxil) 20 mg DAILY ORAL 03/06/20 09:00 04/05/20 08:59 03/06/20 08:29 Promethazine HCl/ Codeine (Phenergan with Codeine) 5 ml Q6H PRN ORAL cough 03/05/20 08:45 04/04/20 08:44 Sitagliptin Phosphate (Januvia) 100 mg DAILY ORAL 03/05/20 09:00 04/04/20 08:59 03/06/20 08:29 Temazepam (Restoril) 15 mg HSPRN PRN ORAL Insomnia 03/05/20 08:45 03/12/20 08:44 03/05/20 23:36 Tizanidine HCl (Zanaflex) 2 mg DAILY ORAL 03/05/20 10:00 06/03/20 09:59 03/06/20 08:29 Assessment/Plan Assessment/Plan ASSESSMENT CP, r/o ACS COPD , possible exacerbation DM HTN Morbid obesity Dyslipidemia CKD with renal stent placement Severe OA R knee PLAN OF CARE tele rapid COVID and COVID by PCR both NGT off isolation CXR -> no acute findings O2 PRN titrate , to keep sat above 92%, pulmonary toilet a/tussive prn empiric abx SCX 03/06 NGT BCX 03/05 NGTD CPT bronchodilator PRN VQ scan pending troponin x 2- NGT, EKG no acute ischemic changes cardio follows Echo with pEF 60-65%, no evidence of WMA RVSP -30 c/w mild pulmonary hypertension ECHO Sunday BS management with Januvia, SSI as needed DVT prophylaxis started on statin per cardio, given DM BP management with CCB, clonidine prn pain management supportive care case discussed and evaluated by supervising physician Debra Quiroga NP Mar 07, 2020 07:46
[2020-03-07] MEDS: PARoxetine HCL 20mg tab ORAL SCH (09:08)
[2020-03-07] MEDS: Heparin 5000 units/ml inj SUBQ SCH ×2 (09:09→20:52)
[2020-03-07] MEDS: cefTRIAXone 1 GM in D5W 55 ML IVPB SCH (11:57)
--- NOTE | 2020-03-07 12:45 | General Progress Note ---
Assessment/Plan Problem List: (1) Acute exacerbation of chronic obstructive pulmonary disease (COPD) ICD Codes: J44.1 - Chronic obstructive pulmonary disease with (acute) exacerbation SNOMED: 558458170 (2) HTN (hypertension) ICD Codes: I10 - Essential (primary) hypertension SNOMED: 87841715 (3) Diabetes ICD Codes: E11.9 - Type 2 diabetes mellitus without complications SNOMED: 38002354 (4) COPD (chronic obstructive pulmonary disease) ICD Codes: J44.9 - Chronic obstructive pulmonary disease, unspecified SNOMED: 51407094 Assessment/Plan: continue Januvia monotherapy continue to hold Metformin continue Novolog sliding scale ac hs hypoglycemia protocol in order Subjective Allergies: Coded Allergies: ERYTHROMYCIN BASE (Verified Allergy, Unknown, 09/28/18) All Systems: reviewed and negative except above Subjective events noted glucose values in fair control Item Value Date Time Bedside Blood Glucose 137 mg/dl H 03/07/20 1130 Bedside Blood Glucose 132 mg/dl H 03/07/20 0608 Bedside Blood Glucose 159 mg/dl H 03/06/20 2100 Bedside Blood Glucose 121 mg/dl H 03/06/20 1637 Bedside Blood Glucose 150 mg/dl H 03/06/20 1141 Objective Last 24 Hour Vital Signs Date Time Temp Pulse Resp B/P (MAP) Pulse Ox O2 Delivery O2 Flow Rate FiO2 03/07/20 12:00 97.9 78 18 119/51 (73) 96 03/07/20 11:42 68 03/07/20 09:09 99 160/81 03/07/20 09:00 Nasal Cannula 2.0 03/07/20 08:00 97.7 99 18 160/81 (107) 100 03/07/20 07:47 79 03/07/20 07:30 100 Nasal Cannula 2.0 28 03/07/20 06:08 153/89 (110) 03/07/20 04:43 172/82 03/07/20 04:00 74 03/07/20 04:00 97.5 67 18 172/82 (112) 97 03/07/20 00:00 97.5 74 20 144/69 (94) 95 03/07/20 00:00 71 03/06/20 21:00 Nasal Cannula 2.0 03/06/20 20:00 73 03/06/20 20:00 97.7 75 18 141/80 (100) 99 7/4/20 19:00 100 Nasal Cannula 2.0 28 03/06/20 16:02 98 03/06/20 16:01 98.2 87 18 147/69 (95) 97 03/06/20 15:40 97.7 Intake and Output 03/06/20 03/07/20 19:00 07:00 Intake Total 400 ml Balance 400 ml Intake Oral 400 ml # Voids 1 2 Laboratory Tests 03/07/20 05:50: White Blood Count 6.7, Red Blood Count 4.16L, Hemoglobin 12.1, Hematocrit 37.5, Mean Corpuscular Volume 90, Mean Corpuscular Hemoglobin 29.0, Mean Corpuscular Hemoglobin Concent 32.2, Red Cell Distribution Width 12.9, Platelet Count 236, Mean Platelet Volume 7.4, Neutrophils (%) (Auto) 55.1, Lymphocytes (%) (Auto) 32.8, Monocytes (%) (Auto) 8.2, Eosinophils (%) (Auto) 3.1H, Basophils (%) (Auto ) 0.8, Sodium Level 144, Potassium Level 4.2, Chloride Level 107, Carbon Dioxide Level 30, Anion Gap 7, Blood Urea Nitrogen 11, Creatinine 1.2, Estimat Glomerular Filtration Rate 54.9, Glucose Level 131H, Calcium Level 9.0, Troponin I 0.000 Height (Feet): 5 Height (Inches): 4.00 Weight (Pounds): 273 General Appearance: no apparent distress Neck: normal alignment Cardiovascular: normal rate Respiratory/Chest: decreased breath sounds Abdomen: normal bowel sounds Objective Current Medications Medications (Trade) Dose Ordered Sig/Sergio Route PRN Reason Start Time Stop Time Status Last Admin Dose Admin Acetaminophen (Tylenol) 650 mg Q4H PRN ORAL fever 03/05/20 08:45 04/04/20 08:44 Acetaminophen/ Hydrocodone Bitart ([place] 7.5/325) 1 tab Q6H PRN ORAL For Pain 03/05/20 11:45 03/12/20 11:44 03/06/20 22:42 Albuterol/ Ipratropium (Albuterol/ Ipratropium) 3 ml Q4H PRN HHN dyspnea 03/05/20 08:45 03/10/20 08:44 Atorvastatin Calcium (Lipitor) 20 mg BEDTIME ORAL 03/05/20 21:00 06/03/20 20:59 03/06/20 20:01 Ceftriaxone Sodium 1 gm/ Dextrose 55 ml @ 110 mls/hr Q24H IVPB 03/05/20 12:00 03/12/20 11:59 03/07/20 11:57 Clonazepam (KlonoPIN) 1 mg Q8H PRN ORAL For Anxiety 03/06/20 16:00 03/13/20 15:59 03/06/20 16:38 Clonidine HCl (Catapres Tab) 0.1 mg Q4H PRN ORAL sbp more than 160 03/05/20 08:45 06/03/20 08:44 03/07/20 04:43 Dextrose (Dextrose 50%) 25 ml Q30M PRN IV Hypoglycemia 03/05/20 08:45 06/03/20 08:44 Dextrose (Dextrose 50%) 50 ml Q30MIN PRN IV Hypoglycemia 03/05/20 08:45 06/03/20 08:44 Heparin Sodium (Porcine) (Heparin 5000 units/ml) 5,000 units EVERY 12 HOURS SUBQ 03/05/20 09:00 04/19/20 08:59 03/07/20 09:09 Insulin Aspart (NovoLOG) BEFORE MEALS AND HS SUBQ 03/05/20 11:30 06/03/20 11:29 03/06/20 20:04 Morphine Sulfate (Morphine Sulfate) 2 mg Q4H PRN IV For Pain 03/05/20 12:00 03/12/20 08:44 03/06/20 23:20 Nifedipine (Procardia XL) 60 mg DAILY ORAL 03/05/20 09:00 04/04/20 08:59 03/07/20 09:09 Nitroglycerin (Ntg) 0.4 mg Q5M X 3 DOSES PRN SL Prn Chest Pain 03/05/20 08:45 04/04/20 08:44 Ondansetron HCl (Zofran) 4 mg Q6H PRN IVP Nausea & Vomiting 03/05/20 08:45 04/04/20 08:44 Paroxetine HCl (Paxil) 20 mg DAILY ORAL 03/06/20 09:00 04/05/20 08:59 03/07/20 09:08 Promethazine HCl/ Codeine (Phenergan with Codeine) 5 ml Q6H PRN ORAL cough 03/05/20 08:45 04/04/20 08:44 Sitagliptin Phosphate (Januvia) 100 mg DAILY ORAL 03/05/20 09:00 04/04/20 08:59 03/07/20 09:07 Temazepam (Restoril) 15 mg HSPRN PRN ORAL Insomnia 03/05/20 08:45 03/12/20 08:44 03/05/20 23:36 Tizanidine HCl (Zanaflex) 2 mg DAILY ORAL 03/05/20 10:00 06/03/20 09:59 03/07/20 09:08 Favio Sanchez MD Mar 07, 2020 12:45
--- NOTE | 2020-03-07 15:33 | Internal Med Progress Note ---
Subjective Date of Service: Mar 07, 2020 Physician Name Donald Gao Attending Physician Wally Pearson MD Current Medications Medications (Trade) Dose Ordered Sig/Sergio Route PRN Reason Start Time Stop Time Status Last Admin Dose Admin Acetaminophen (Tylenol) 650 mg Q4H PRN ORAL fever 03/05/20 08:45 04/04/20 08:44 Acetaminophen/ Hydrocodone Bitart ([place] 7.5/325) 1 tab Q6H PRN ORAL For Pain 03/05/20 11:45 03/12/20 11:44 03/06/20 22:42 Albuterol/ Ipratropium (Albuterol/ Ipratropium) 3 ml Q4H PRN HHN dyspnea 03/05/20 08:45 03/10/20 08:44 Atorvastatin Calcium (Lipitor) 20 mg BEDTIME ORAL 03/05/20 21:00 06/03/20 20:59 03/06/20 20:01 Ceftriaxone Sodium 1 gm/ Dextrose 55 ml @ 110 mls/hr Q24H IVPB 03/05/20 12:00 03/12/20 11:59 03/07/20 11:57 Clonazepam (KlonoPIN) 1 mg Q8H PRN ORAL For Anxiety 03/06/20 16:00 03/13/20 15:59 03/06/20 16:38 Clonidine HCl (Catapres Tab) 0.1 mg Q4H PRN ORAL sbp more than 160 03/05/20 08:45 06/03/20 08:44 03/07/20 04:43 Dextrose (Dextrose 50%) 25 ml Q30M PRN IV Hypoglycemia 03/05/20 08:45 06/03/20 08:44 Dextrose (Dextrose 50%) 50 ml Q30MIN PRN IV Hypoglycemia 03/05/20 08:45 06/03/20 08:44 Heparin Sodium (Porcine) (Heparin 5000 units/ml) 5,000 units EVERY 12 HOURS SUBQ 03/05/20 09:00 04/19/20 08:59 03/07/20 09:09 Insulin Aspart (NovoLOG) BEFORE MEALS AND HS SUBQ 03/05/20 11:30 06/03/20 11:29 03/06/20 20:04 Morphine Sulfate (Morphine Sulfate) 2 mg Q4H PRN IV For Pain 03/05/20 12:00 03/12/20 08:44 03/06/20 23:20 Nifedipine (Procardia XL) 60 mg DAILY ORAL 03/05/20 09:00 04/04/20 08:59 03/07/20 09:09 Nitroglycerin (Ntg) 0.4 mg Q5M X 3 DOSES PRN SL Prn Chest Pain 03/05/20 08:45 04/04/20 08:44 Ondansetron HCl (Zofran) 4 mg Q6H PRN IVP Nausea & Vomiting 03/05/20 08:45 04/04/20 08:44 Paroxetine HCl (Paxil) 20 mg DAILY ORAL 03/06/20 09:00 04/05/20 08:59 03/07/20 09:08 Promethazine HCl/ Codeine (Phenergan with Codeine) 5 ml Q6H PRN ORAL cough 03/05/20 08:45 04/04/20 08:44 Sitagliptin Phosphate (Januvia) 100 mg DAILY ORAL 03/05/20 09:00 04/04/20 08:59 03/07/20 09:07 Temazepam (Restoril) 15 mg HSPRN PRN ORAL Insomnia 03/05/20 08:45 03/12/20 08:44 03/05/20 23:36 Tizanidine HCl (Zanaflex) 2 mg DAILY ORAL 03/05/20 10:00 06/03/20 09:59 03/07/20 09:08 Allergies: Coded Allergies: ERYTHROMYCIN BASE (Verified Allergy, Unknown, 09/28/18) ROS Limited/Unobtainable: No Constitutional: Reports: no symptoms HEENT: Reports: no symptoms Cardiovascular: Reports: chest pain Respiratory: Reports: shortness of breath Gastrointestinal/Abdominal: Reports: no symptoms Genitourinary: Reports: no symptoms Neurologic/Psychiatric: Reports: no symptoms Subjective 64 YO M admitted with shortness of breath and chest pain. Now COPD exacerbation. Cover for Int Med-Dr Pearson. Await dobutamine echo on Sun03/08/20 Objective Last Vital Signs Date Time Temp Pulse Resp B/P (MAP) Pulse Ox O2 Delivery O2 Flow Rate FiO2 03/07/20 12:00 97.9 78 18 119/51 (73) 96 03/07/20 09:00 Nasal Cannula 2.0 03/07/20 07:30 28 Laboratory Tests Test 03/07/20 05:50 White Blood Count 6.7 K/UL (4.8-10.8) Red Blood Count 4.16 M/UL (4.20-5.40) L Hemoglobin 12.1 G/DL (12.0-16.0) Hematocrit 37.5 % (37.0-47.0) Mean Corpuscular Volume 90 FL (80-99) Mean Corpuscular Hemoglobin 29.0 PG (27.0-31.0) Mean Corpuscular Hemoglobin Concent 32.2 G/DL (32.0-36.0) Red Cell Distribution Width 12.9 % (11.6-14.8) Platelet Count 236 K/UL (150-450) Mean Platelet Volume 7.4 FL (6.5-10.1) Neutrophils (%) (Auto) 55.1 % (45.0-75.0) Lymphocytes (%) (Auto) 32.8 % (20.0-45.0) Monocytes (%) (Auto) 8.2 % (1.0-10.0) Eosinophils (%) (Auto) 3.1 % (0.0-3.0) H Basophils (%) (Auto) 0.8 % (0.0-2.0) Sodium Level 144 MMOL/L (136-145) Potassium Level 4.2 MMOL/L (3.5-5.1) Chloride Level 107 MMOL/L (98-107) Carbon Dioxide Level 30 MMOL/L (21-32) Anion Gap 7 mmol/L (5-15) Blood Urea Nitrogen 11 mg/dL (7-18) Creatinine 1.2 MG/DL (0.55-1.30) Estimat Glomerular Filtration Rate 54.9 mL/min (>60) Glucose Level 131 MG/DL (74-106) H Calcium Level 9.0 MG/DL (8.5-10.1) Troponin I 0.000 ng/mL (0.000-0.056) Microbiology Date/Time Source Procedure Growth Status 03/05/20 03:20 Blood Blood Culture - Preliminary NO GROWTH AFTER 24 HOURS Resulted 03/05/20 03:00 Blood Blood Culture - Preliminary NO GROWTH AFTER 24 HOURS Resulted 03/06/20 05:30 Sputum Expectorated Gram Stain Pending Resulted 03/06/20 05:30 Sputum Expectorated Sputum Culture - Preliminary NORMAL UPPER RESPIRATORY DULCE AT 24 ... Resulted 03/05/20 06:00 Nasopharynx Coronavirus COVID-19 PCR ([place]) - Final Complete 03/05/20 03:33 Nasopharynx SARS-CoV-2 RdRp Gene Assay - Final Complete Intake and Output 03/06/20 03/07/20 19:00 07:00 Intake Total 400 ml Balance 400 ml Intake Oral 400 ml # Voids 1 2 Objective PHYSICAL EXAMINATION: GENERAL: The patient is awake, responsive, and in no acute distress. HEAD AND NECK: Pupils equal and reactive to light. Extraocular movements intact. NECK: Supple. No JVD. LUNGS: Good air entry. No wheezing or rales. Decreased air in bases. HEART: S1, S2. Distant heart sounds. No murmur or gallops. ABDOMEN: Soft, nondistended, nontender, morbidly obese. EXTREMITIES: No cyanosis, clubbing, or edema. Surgical scar was noted on the right knee from the previous arthroplasty. NEUROLOGIC: Cranial nerves II through XII grossly intact. Motor is 5/5 in all extremities. Gait is intact. RECTAL: Refused and deferred. GENITOURINARY: Refused and deferred. PSYCHIATRIC: Mood and affect is intact. Assessment/Plan Assessment/Plan ASSESSMENT: 1. Shortness of breath and chest pain, possible acute coronary syndrome. 2. COPD. 3. Morbid obesity. 4. Diabetes type 2. 5. Hypertension. 6. Dyslipidemia. 7. Renal stent placement. 8. Chronic kidney disease. 9. Severe osteoarthritis of right knee. PLAN: 1. Admit the patient to monitored unit. 2. Dr. Waite= Pulmonary/Critical Care 3. Dr. Davison=Cardiology. Await dobutamine echocardiogram Sunday03/08/20. 4. antibiotic=Rocephin. 5. Code status is Full Code. 6. DVT prophylaxis, heparin subcu. Donald Gao MD Mar 07, 2020 15:32
--- NOTE | 2020-03-07 17:41 | Cardiology Progress Note ---
Assessment/Plan Assessment/Plan less anxious, d/w Dr Davison stress test tomororw Subjective Subjective Has ongoing dyspnea .? chest pain, probably anxiety Objective Last 24 Hour Vital Signs Date Time Temp Pulse Resp B/P (MAP) Pulse Ox O2 Delivery O2 Flow Rate FiO2 03/07/20 16:00 98.2 82 18 130/69 (89) 98 03/07/20 15:36 80 03/07/20 12:00 97.9 78 18 119/51 (73) 96 03/07/20 11:42 68 03/07/20 09:09 99 160/81 03/07/20 09:00 Nasal Cannula 2.0 03/07/20 08:00 97.7 99 18 160/81 (107) 100 03/07/20 07:47 79 03/07/20 07:30 100 Nasal Cannula 2.0 28 03/07/20 06:08 153/89 (110) 03/07/20 04:43 172/82 03/07/20 04:00 74 03/07/20 04:00 97.5 67 18 172/82 (112) 97 03/07/20 00:00 97.5 74 20 144/69 (94) 95 03/07/20 00:00 71 03/06/20 21:00 Nasal Cannula 2.0 03/06/20 20:00 73 03/06/20 20:00 97.7 75 18 141/80 (100) 99 03/06/20 19:00 100 Nasal Cannula 2.0 28 General Appearance: no apparent distress Neck: supple Rhythm: NSR Cardiovascular: normal rate Respiratory/Chest: lungs clear Abdomen: soft Extremities: non-tender Intake and Output 03/06/20 03/07/20 19:00 07:00 Intake Total 400 ml Balance 400 ml Intake Oral 400 ml # Voids 1 2 Laboratory Tests Test 03/07/20 05:50 03/07/20 16:11 White Blood Count 6.7 K/UL (4.8-10.8) Red Blood Count 4.16 M/UL (4.20-5.40) L Hemoglobin 12.1 G/DL (12.0-16.0) Hematocrit 37.5 % (37.0-47.0) Mean Corpuscular Volume 90 FL (80-99) Mean Corpuscular Hemoglobin 29.0 PG (27.0-31.0) Mean Corpuscular Hemoglobin Concent 32.2 G/DL (32.0-36.0) Red Cell Distribution Width 12.9 % (11.6-14.8) Platelet Count 236 K/UL (150-450) Mean Platelet Volume 7.4 FL (6.5-10.1) Neutrophils (%) (Auto) 55.1 % (45.0-75.0) Lymphocytes (%) (Auto) 32.8 % (20.0-45.0) Monocytes (%) (Auto) 8.2 % (1.0-10.0) Eosinophils (%) (Auto) 3.1 % (0.0-3.0) H Basophils (%) (Auto) 0.8 % (0.0-2.0) Sodium Level 144 MMOL/L (136-145) Potassium Level 4.2 MMOL/L (3.5-5.1) Chloride Level 107 MMOL/L (98-107) Carbon Dioxide Level 30 MMOL/L (21-32) Anion Gap 7 mmol/L (5-15) Blood Urea Nitrogen 11 mg/dL (7-18) Creatinine 1.2 MG/DL (0.55-1.30) Estimat Glomerular Filtration Rate 54.9 mL/min (>60) Glucose Level 131 MG/DL (74-106) H Calcium Level 9.0 MG/DL (8.5-10.1) Troponin I 0.000 ng/mL (0.000-0.056) POC Whole Blood Glucose 124 MG/DL (74-106) H Microbiology Date/Time Source Procedure Growth Status 03/05/20 03:20 Blood Blood Culture - Preliminary NO GROWTH AFTER 24 HOURS Resulted 03/05/20 03:00 Blood Blood Culture - Preliminary NO GROWTH AFTER 24 HOURS Resulted 03/06/20 05:30 Sputum Expectorated Gram Stain Pending Resulted 03/06/20 05:30 Sputum Expectorated Sputum Culture - Preliminary NORMAL UPPER RESPIRATORY DULCE AT 24 ... Resulted 03/05/20 06:00 Nasopharynx Coronavirus COVID-19 PCR ([place]) - Final Complete 03/05/20 03:33 Nasopharynx SARS-CoV-2 RdRp Gene Assay - Final Complete Kylah Schumacher MD Mar 07, 2020 17:41
--- NOTE | 2020-03-07 19:23 | NUR ---
HAND-OFF: Report given to ALFRED Torres. Pt is awake and stable,endorsed plan of care.
--- NOTE | 2020-03-07 19:30 | NUR ---
NURSE NOTES: Received report from ALFRED Kim. Patient is awake, alert and oriented x 4. On CCHO (Medium), instructed and amenable. On oxygen via nasal cannula @ 2Lpm with no shortness of breath reported, saturating 94%. chips screen tender is in placed, shows sinus rhythm and no chest pain at this time. IV site is on Left hand G-22 saline lock that is patent and intact. Patient is ambulatory with steady gait. Safety measures are in placed, bed in lowest and locked position, side rails up x 2. Call light button and bedside table within reach, advised to call for any assistance needed, will continue plan of care.
[2020-03-07] MEDS: Atorvastatin 20mg tab ORAL SCH (20:52)
[2020-03-07] MEDS: HYDROcodone/Acetamin 7.5/325 tab ORAL PRN (21:01)
[2020-03-07] MEDS: Albuterol/Ipratropium 3ml neb HHN PRN (23:22)
[2020-03-08] VITALS: BP 154/71
[2020-03-08] MEDS: Morphine Sulfate 2mg/ml Inj(IV/IM USE ONLY) IV PRN (02:29)
[2020-03-08 04:00] VITALS: BP 151/68
[2020-03-08] MEDS: NovoLOG Insulin Flexpen SUBQ SCH ×4 (06:04→21:00)
--- NOTE | 2020-03-08 06:56 | General Progress Note ---
Assessment/Plan Problem List: (1) Acute exacerbation of chronic obstructive pulmonary disease (COPD) ICD Codes: J44.1 - Chronic obstructive pulmonary disease with (acute) exacerbation SNOMED: 328196611 (2) HTN (hypertension) ICD Codes: I10 - Essential (primary) hypertension SNOMED: 75435910 (3) Diabetes ICD Codes: E11.9 - Type 2 diabetes mellitus without complications SNOMED: 44656068 (4) COPD (chronic obstructive pulmonary disease) ICD Codes: J44.9 - Chronic obstructive pulmonary disease, unspecified SNOMED: 59680753 Assessment/Plan: continue Januvia monotherapy continue to hold Metformin continue Novolog sliding scale ac hs hypoglycemia protocol in order Subjective Allergies: Coded Allergies: ERYTHROMYCIN BASE (Verified Allergy, Unknown, 09/28/18) Subjective events noted glucose values in fair control Item Value Date Time Bedside Blood Glucose 168 mg/dl H 03/08/20 0630 Bedside Blood Glucose 141 mg/dl H 03/07/20 2100 Bedside Blood Glucose 124 mg/dl H 03/07/20 1630 Bedside Blood Glucose 137 mg/dl H 03/07/20 1130 Bedside Blood Glucose 132 mg/dl H 03/07/20 0608 Objective Last 24 Hour Vital Signs Date Time Temp Pulse Resp B/P (MAP) Pulse Ox O2 Delivery O2 Flow Rate FiO2 03/08/20 04:00 69 03/08/20 04:00 97.9 78 18 151/68 (95) 97 03/08/20 00:00 98.1 79 16 154/71 (98) 98 03/08/20 00:00 86 03/07/20 23:23 81 17 100 Nasal Cannula 1.0 24 79 18 100 03/07/20 21:00 Nasal Cannula 2.0 03/07/20 20:02 100 Nasal Cannula 2.0 28 03/07/20 20:00 98.0 102 18 145/64 (91) 94 03/07/20 20:00 82 03/07/20 16:00 98.2 82 18 130/69 (89) 98 03/07/20 15:36 80 03/07/20 12:00 97.9 78 18 119/51 (73) 96 03/07/20 11:42 68 03/07/20 09:09 99 160/81 03/07/20 09:00 Nasal Cannula 2.0 7/5/20 08:00 97.7 99 18 160/81 (107) 100 03/07/20 07:47 79 03/07/20 07:30 100 Nasal Cannula 2.0 28 Intake and Output 03/07/20 03/08/20 19:00 07:00 Intake Total 795 ml 800 ml Balance 795 ml 800 ml Intake Oral 740 ml 800 ml IV Total 55 ml # Voids 4 4 Laboratory Tests 03/07/20 11:55: POC Whole Blood Glucose 137H 03/07/20 16:11: POC Whole Blood Glucose 124H 03/07/20 20:43: POC Whole Blood Glucose 141H 03/08/20 05:45: White Blood Count [Pending], Red Blood Count [Pending], Hemoglobin [Pending], Hematocrit [Pending], Mean Corpuscular Volume [Pending], Mean Corpuscular Hemoglobin [Pending], Mean Corpuscular Hemoglobin Concent [Pending], Red Cell Distribution Width [Pending], Platelet Count [Pending], Mean Platelet Volume [ Pending], Neutrophils (%) (Auto) [Pending], Lymphocytes (%) (Auto) [Pending], Monocytes (%) (Auto) [Pending], Eosinophils (%) (Auto) [Pending], Basophils (%) (Auto) [Pending], Sodium Level [Pending], Potassium Level [Pending], Chloride Level [Pending], Carbon Dioxide Level [Pending], Blood Urea Nitrogen [Pending], Creatinine [Pending], Estimat Glomerular Filtration Rate [Pending], Glucose Level [Pending], Calcium Level [Pending] 03/08/20 05:47: POC Whole Blood Glucose 168H Height (Feet): 5 Height (Inches): 4.00 Weight (Pounds): 273 General Appearance: no apparent distress Neck: normal alignment Cardiovascular: normal rate Respiratory/Chest: lungs clear Abdomen: normal bowel sounds Objective Current Medications Medications (Trade) Dose Ordered Sig/Sergio Route PRN Reason Start Time Stop Time Status Last Admin Dose Admin Acetaminophen (Tylenol) 650 mg Q4H PRN ORAL fever 03/05/20 08:45 04/04/20 08:44 Acetaminophen/ Hydrocodone Bitart ([place] 7.5/325) 1 tab Q6H PRN ORAL For Pain 03/05/20 11:45 03/12/20 11:44 03/07/20 21:01 Albuterol/ Ipratropium (Albuterol/ Ipratropium) 3 ml Q4H PRN HHN dyspnea 03/05/20 08:45 03/10/20 08:44 03/07/20 23:22 Atorvastatin Calcium (Lipitor) 20 mg BEDTIME ORAL 03/05/20 21:00 06/03/20 20:59 03/07/20 20:52 Ceftriaxone Sodium 1 gm/ Dextrose 55 ml @ 110 mls/hr Q24H IVPB 03/05/20 12:00 03/12/20 11:59 03/07/20 11:57 Clonazepam (KlonoPIN) 1 mg Q8H PRN ORAL For Anxiety 03/06/20 16:00 03/13/20 15:59 03/06/20 16:38 Clonidine HCl (Catapres Tab) 0.1 mg Q4H PRN ORAL sbp more than 160 03/05/20 08:45 06/03/20 08:44 03/07/20 04:43 Dextrose (Dextrose 50%) 25 ml Q30M PRN IV Hypoglycemia 03/05/20 08:45 06/03/20 08:44 Dextrose (Dextrose 50%) 50 ml Q30MIN PRN IV Hypoglycemia 03/05/20 08:45 06/03/20 08:44 Heparin Sodium (Porcine) (Heparin 5000 units/ml) 5,000 units EVERY 12 HOURS SUBQ 03/05/20 09:00 04/19/20 08:59 03/07/20 20:52 Insulin Aspart (NovoLOG) BEFORE MEALS AND HS SUBQ 03/05/20 11:30 06/03/20 11:29 03/08/20 06:04 Morphine Sulfate (Morphine Sulfate) 2 mg Q4H PRN IV For Pain 03/05/20 12:00 03/12/20 08:44 03/08/20 02:29 Nifedipine (Procardia XL) 60 mg DAILY ORAL 03/05/20 09:00 04/04/20 08:59 03/07/20 09:09 Nitroglycerin (Ntg) 0.4 mg Q5M X 3 DOSES PRN SL Prn Chest Pain 03/05/20 08:45 04/04/20 08:44 Ondansetron HCl (Zofran) 4 mg Q6H PRN IVP Nausea & Vomiting 03/05/20 08:45 04/04/20 08:44 Paroxetine HCl (Paxil) 20 mg DAILY ORAL 03/06/20 09:00 04/05/20 08:59 03/07/20 09:08 Promethazine HCl/ Codeine (Phenergan with Codeine) 5 ml Q6H PRN ORAL cough 03/05/20 08:45 04/04/20 08:44 Sitagliptin Phosphate (Januvia) 100 mg DAILY ORAL 03/05/20 09:00 04/04/20 08:59 03/07/20 09:07 Temazepam (Restoril) 15 mg HSPRN PRN ORAL Insomnia 03/05/20 08:45 03/12/20 08:44 03/05/20 23:36 Tizanidine HCl (Zanaflex) 2 mg DAILY ORAL 03/05/20 10:00 06/03/20 09:59 03/07/20 09:08 Favio Sanchez MD Mar 08, 2020 06:56
[2020-03-08 07:01] LABS: BASOPHILS % (AUTO) 1.4 % (0.0-2.0); EOSINOPHILS % (AUTO) 2.5 % (0.0-3.0); HEMATOCRIT 35.5 % (37.0-47.0); HEMOGLOBIN 11.4 G/DL (12.0-16.0); LYMPHOCYTES % (AUTO) 36.9 % (20.0-45.0); MEAN CORPUSCULAR VOLUME 90 FL (80-99); MONOCYTES % (AUTO) 6.3 % (1.0-10.0); NEUTROPHILS % (AUTO) 52.9 % (45.0-75.0); PLATELET COUNT 240 K/UL (150-450); RED BLOOD COUNT 3.96 M/UL (4.20-5.40); RED CELL DISTRIBUTION WIDTH 12.7 % (11.6-14.8); WHITE BLOOD COUNT 6.3 K/UL (4.8-10.8)
[2020-03-08 07:12] LABS: ANION GAP 10 mmol/L (5-15); BLOOD UREA NITROGEN 14 mg/dL (7-18); CALCIUM 8.9 MG/DL (8.5-10.1); CARBON DIOXIDE 27 MMOL/L (21-32); CHLORIDE 107 MMOL/L (98-107); CREATININE 1.2 MG/DL (0.55-1.30); POTASSIUM 3.6 MMOL/L (3.5-5.1); SODIUM 144 MMOL/L (136-145)
--- NOTE | 2020-03-08 07:19 | NUR ---
HAND-OFF: Report given to ALFRED Trammell. Patient is on bed, eating breakfast on stable condition, plan of care endorsed.
--- NOTE | 2020-03-08 07:59 | NUR ---
NURSE NOTES: Received report from ALFRED Torres. Pt A/O x4, able to make needs known. No s/sx of acute distress, denies any pain, breathing even and unlabored in 2L NC. IV site patent and asymptomatic. Bed on lowest position, call light within reach. Will continue plan of care.
[2020-03-08 08:00] VITALS: BP 147/66
[2020-03-08] MEDS: PARoxetine HCL 20mg tab ORAL SCH (09:07)
[2020-03-08] MEDS: HYDROcodone/Acetamin 7.5/325 tab ORAL PRN ×2 (09:08→20:12)
[2020-03-08] MEDS: Heparin 5000 units/ml inj SUBQ SCH ×2 (09:09→20:36)
--- NOTE | 2020-03-08 10:42 | NUR ---
NM Lung V/Q Scan complete.
--- NOTE | 2020-03-08 11:44 | Diagnostic Imaging Report ---
Indications: Shortness of breath Technique: IV administration 5 mCi 99m technetium macroaggregated albumin. Images obtained over the lungs in multiple projections. Previously, patient inhaled 42 mCi aerosolized 99M technetium DTPA. Images obtained over the lungs in multiple projections Comparison: No comparison nuclear scans. Reference made to chest radiograph 03/05/2020 Findings: Perfusion and aerosol images are both slightly heterogeneous, without significant segmental or subsegmental perfusion defects. No evidence of perfusion aerosol mismatch. Impression: Findings are low probability for pulmonary embolus
[2020-03-08] MEDS: cefTRIAXone 1 GM in D5W 55 ML IVPB SCH (11:59)
[2020-03-08 12:00] VITALS: BP 133/57
--- NOTE | 2020-03-08 12:01 | NUR ---
CASE MANAGEMENT: REVIEW 03/08/20 SI:CP. COPD. VS: T 98.2 HR 92 RR 22 B/P 149/87 SATS 96% ON RA LABS: K 3.3 CR 1.4 GLU 130 AST 47 LACTIC ACID 2.5 IS: IV ROCEPHIN QD PROCARDIA XL PO QD ALBUTEROL Q4HR/PRN HEPARIN SQ BID VQ SCAN- Findings are low probability for pulmonary embolus \: 2E TELE UNIT DCP: HOME PLAN OF CARE: Speech therapy eval~coughing while swallowing pills VQ scan today X-Ray spine today STRESS TEST TODAY
--- NOTE | 2020-03-08 13:10 | Internal Med Progress Note ---
Subjective Date of Service: Mar 08, 2020 Physician Name Donald Gao Attending Physician Wally Pearson MD Current Medications Medications (Trade) Dose Ordered Sig/Sergio Route PRN Reason Start Time Stop Time Status Last Admin Dose Admin Acetaminophen (Tylenol) 650 mg Q4H PRN ORAL fever 03/05/20 08:45 04/04/20 08:44 Acetaminophen/ Hydrocodone Bitart ([place] 7.5/325) 1 tab Q6H PRN ORAL For Pain 03/05/20 11:45 03/12/20 11:44 03/08/20 09:08 Albuterol/ Ipratropium (Albuterol/ Ipratropium) 3 ml Q4H PRN HHN dyspnea 03/05/20 08:45 03/10/20 08:44 03/07/20 23:22 Atorvastatin Calcium (Lipitor) 20 mg BEDTIME ORAL 03/05/20 21:00 06/03/20 20:59 03/07/20 20:52 Ceftriaxone Sodium 1 gm/ Dextrose 55 ml @ 110 mls/hr Q24H IVPB 03/05/20 12:00 03/12/20 11:59 03/08/20 11:59 Clonazepam (KlonoPIN) 1 mg Q8H PRN ORAL For Anxiety 03/06/20 16:00 03/13/20 15:59 03/08/20 09:06 Clonidine HCl (Catapres Tab) 0.1 mg Q4H PRN ORAL sbp more than 160 03/05/20 08:45 06/03/20 08:44 03/07/20 04:43 Dextrose (Dextrose 50%) 25 ml Q30M PRN IV Hypoglycemia 03/05/20 08:45 06/03/20 08:44 Dextrose (Dextrose 50%) 50 ml Q30MIN PRN IV Hypoglycemia 03/05/20 08:45 06/03/20 08:44 Heparin Sodium (Porcine) (Heparin 5000 units/ml) 5,000 units EVERY 12 HOURS SUBQ 03/05/20 09:00 04/19/20 08:59 03/08/20 09:09 Insulin Aspart (NovoLOG) BEFORE MEALS AND HS SUBQ 03/05/20 11:30 06/03/20 11:29 03/08/20 12:01 Morphine Sulfate (Morphine Sulfate) 2 mg Q4H PRN IV For Pain 03/05/20 12:00 03/12/20 08:44 03/08/20 02:29 Nifedipine (Procardia XL) 60 mg DAILY ORAL 03/05/20 09:00 04/04/20 08:59 03/08/20 09:06 Nitroglycerin (Ntg) 0.4 mg Q5M X 3 DOSES PRN SL Prn Chest Pain 03/05/20 08:45 04/04/20 08:44 Ondansetron HCl (Zofran) 4 mg Q6H PRN IVP Nausea & Vomiting 03/05/20 08:45 04/04/20 08:44 Paroxetine HCl (Paxil) 20 mg DAILY ORAL 03/06/20 09:00 04/05/20 08:59 03/08/20 09:07 Promethazine HCl/ Codeine (Phenergan with Codeine) 5 ml Q6H PRN ORAL cough 03/05/20 08:45 04/04/20 08:44 Sitagliptin Phosphate (Januvia) 100 mg DAILY ORAL 03/05/20 09:00 04/04/20 08:59 03/08/20 09:08 Temazepam (Restoril) 15 mg HSPRN PRN ORAL Insomnia 03/05/20 08:45 03/12/20 08:44 03/05/20 23:36 Tizanidine HCl (Zanaflex) 2 mg DAILY ORAL 03/05/20 10:00 06/03/20 09:59 03/08/20 09:07 Allergies: Coded Allergies: ERYTHROMYCIN BASE (Verified Allergy, Unknown, 09/28/18) ROS Limited/Unobtainable: No Constitutional: Reports: no symptoms Cardiovascular: Reports: chest pain Respiratory: Reports: shortness of breath Gastrointestinal/Abdominal: Reports: no symptoms Genitourinary: Reports: no symptoms Neurologic/Psychiatric: Reports: no symptoms Subjective 64 YO M admitted with shortness of breath and chest pain. Now COPD exacerbation. Cover for Int Med-Dr Pearson. Await dobutamine echo on Sun03/08/20 Objective Last Vital Signs Date Time Temp Pulse Resp B/P (MAP) Pulse Ox O2 Delivery O2 Flow Rate FiO2 03/08/20 09:06 83 147/66 03/08/20 09:00 Nasal Cannula 2.0 03/08/20 08:00 97.9 19 96 03/07/20 23:23 24 Laboratory Tests Test 03/07/20 16:11 03/07/20 20:43 03/08/20 05:45 03/08/20 05:47 POC Whole Blood Glucose 124 MG/DL (74-106) H 141 MG/DL (74-106) H 168 MG/DL (74-106) H White Blood Count 6.3 K/UL (4.8-10.8) Red Blood Count 3.96 M/UL (4.20-5.40) L Hemoglobin 11.4 G/DL (12.0-16.0) L Hematocrit 35.5 % (37.0-47.0) L Mean Corpuscular Volume 90 FL (80-99) Mean Corpuscular Hemoglobin 28.7 PG (27.0-31.0) Mean Corpuscular Hemoglobin Concent 32.0 G/DL (32.0-36.0) Red Cell Distribution Width 12.7 % (11.6-14.8) Platelet Count 240 K/UL (150-450) Mean Platelet Volume 7.7 FL (6.5-10.1) Neutrophils (%) (Auto) 52.9 % (45.0-75.0) Lymphocytes (%) (Auto) 36.9 % (20.0-45.0) Monocytes (%) (Auto) 6.3 % (1.0-10.0) Eosinophils (%) (Auto) 2.5 % (0.0-3.0) Basophils (%) (Auto) 1.4 % (0.0-2.0) Sodium Level 144 MMOL/L (136-145) Potassium Level 3.6 MMOL/L (3.5-5.1) Chloride Level 107 MMOL/L (98-107) Carbon Dioxide Level 27 MMOL/L (21-32) Anion Gap 10 mmol/L (5-15) Blood Urea Nitrogen 14 mg/dL (7-18) Creatinine 1.2 MG/DL (0.55-1.30) Estimat Glomerular Filtration Rate 54.9 mL/min (>60) Glucose Level 156 MG/DL (74-106) H Calcium Level 8.9 MG/DL (8.5-10.1) Test 03/08/20 11:32 POC Whole Blood Glucose 150 MG/DL (74-106) H Microbiology Date/Time Source Procedure Growth Status 03/06/20 05:30 Sputum Expectorated Gram Stain - Final Complete 03/06/20 05:30 Sputum Expectorated Sputum Culture - Final NORMAL UPPER RESPIRATORY DULCE PRESENT Complete Intake and Output 03/07/20 03/08/20 19:00 07:00 Intake Total 795 ml 800 ml Balance 795 ml 800 ml Intake Oral 740 ml 800 ml IV Total 55 ml # Voids 4 4 Objective PHYSICAL EXAMINATION: GENERAL: The patient is awake, responsive, and in no acute distress. HEAD AND NECK: Pupils equal and reactive to light. Extraocular movements intact. NECK: Supple. No JVD. LUNGS: Good air entry. No wheezing or rales. Decreased air in bases. HEART: S1, S2. Distant heart sounds. No murmur or gallops. ABDOMEN: Soft, nondistended, nontender, morbidly obese. EXTREMITIES: No cyanosis, clubbing, or edema. Surgical scar was noted on the right knee from the previous arthroplasty. NEUROLOGIC: Cranial nerves II through XII grossly intact. Motor is 5/5 in all extremities. Gait is intact. RECTAL: Refused and deferred. GENITOURINARY: Refused and deferred. PSYCHIATRIC: Mood and affect is intact. Assessment/Plan Assessment/Plan ASSESSMENT: 1. Shortness of breath and chest pain, possible acute coronary syndrome. 2. COPD. 3. Morbid obesity. 4. Diabetes type 2. 5. Hypertension. 6. Dyslipidemia. 7. Renal stent placement. 8. Chronic kidney disease. 9. Severe osteoarthritis of right knee. PLAN: 1. Admit the patient to monitored unit. 2. Dr. Waite= Pulmonary/Critical Care 3. Dr. Davison=Cardiology. Await dobutamine echocardiogram Sunday03/08/20. 4. antibiotic=Rocephin. 5. Code status is Full Code. 6. DVT prophylaxis, heparin subcu. 7. V/Q=low probability for Pulm embolism Donald Gao MD Mar 08, 2020 13:10
--- NOTE | 2020-03-08 13:44 | NUR ---
ORDER RECEIVED, CHART REVIEWED, AND RN CLEARED PATIENT FOR ST INTERVENTION. PT IS A 67 Y.O. 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 "I CRY ALL THE TIME AND I EAT EVEN WHEN I AM NOT HUNGRY" MY MOTHER A YEAR AGO AND "I JUST CAN'T SEEM TO GET OVER IT. ALSO ABOUT 4-5 MONTHS AGO SHE REPORTED A BRIEF NUMB/TINGLING SENSATION IN HER LEFT UPPER EXTREMITY BUT SHE DID NOT PURSUE MEDICAL INTERVENTION. DURING THE PAST 3 MONTHS SHE HAS BEEN EXPERIENCING INCREASING MUCOUS, AND INCREASING DIFFICULTY WITH OVERALL STAMINA, SHORTNESS OF BREATH, AND SWALLOWING SOLIDS AND PILLS, . IN THE PAST MONTH SHE HAS HAD CHANGES IN HER MEDICATION WITH INCREASING XEROSTOMIA. BECAUSE OF DIFFICULTY SWALLOWING SOLIDS, SHE HAS BEEN ON A DIET OF SOFT/EASY CHEW SOLIDS AND THIN LIQUIDS. "I CAN'T EAT MEAT AT ALL" INITIAL IMPRESSIONS: PATIENT ALERT AND ORIENTED X4. SHE WAS ABLE TO FOLLOW COMMANDS FOR AN ORAL MOTOR EXAM. DENTITION INVOLVES MISSING LOWER MOLARS WHICH MAKES MASTICATION/GRINDING OF SOLIDS DIFFICULT. LINGUAL/LABIAL/MANDIBULAR STRENGTH PRESENTS INTACT RELATIVE TO STRENGTH/ROM/AND COORDINATION. PATIENT WAS ASSESSED ON 3 TRIALS EACH OF THIN LIQUIDS (CUP/SIP AND VIA STRAW), PUREE, AND SOFT SOLID (PEACH SLICES) PRESENTED IN 5 ML AMOUNTS VIA SPOON. ORAL PHASE OF SWALLOW PRESENTED ESSENTIALLY INTACT WITH NO ANTERIOR SPILLAGE OR RESIDUE POST SWALLOW. HYOLARYNGEAL EXCURSION APPEARED TO BE TIMELY AND ADEQUATE FOR AIRWAY PROTECTION. NO CHANGES NOTED IN VOCAL QUALITY OR RESPIRATION RATE. NO OVERT S/S OF ASPIRATION WITH ALL CONSISTENCIES. WITH TRIALS OF SOFT SOLID, PATIENT COMPLAINED OF GLOBUS ON R/SIDE. CLEAR UPPER AIRWAY SOUNDS THROUGHOUT PER CERVICAL AUSCULTATION. THE PATIENT COMPLAINS OF BELCHING POST P.O., GLOBUS ON R/SIDE, INCREASE IN CLEAR/FOAMY MUCOUS. PATIENT ALSO COMPLAINS OF GETTING SHORT OF BREATH DURING CONVERSATIONS AND SOMETIMES DURING MEALS. PATIENT PRESENTS WITH MILD OROPHARYNGEAL DYSPHAGIA CHARACTERIZED BY XEROSTOMIA RESULTING IN DRY SOLIDS DIFFICULT TO SWALLOW, SHORTNESS OF BREATH DURING P.O. CONTRIBUTING TO DIFFICULTY COORDINATING SWALLOWING/BREATHING, AND DECREASED STAMINA/FATIGUE SECONDARY TO COPD WHICH IMPACTS MEALTIME ACTIVITY TOLERANCE. RECOMMENDATIONS: 1. SOFT/EASY CHEW SOLIDS/THIN LIQUIDS 2. CRUSH CRUSHABLE MEDS/PRESENT IN PUREE 3. DIET OF WET/SLIPPERY FOODS/VS/DRY/STICKY/CRUMBLY FOODS 4. CONSIDER MOUTHRINSE PRIOR TO P.O. WITH OTC MOUTH MOISTENER (BIOTENE) TO MOISTEN MOUTH/EASE OF INTAKE 5. CONSIDER 6 SMALL MEALS VS 3 LARGE FOR ENERGY CONSERVATION 6. ALTERNATE LIQUIDS/SOLIDS 7. IF SHORT OF BREATH DURING MEAL, STOP/RELAX, THEN RESUME MEAL 8. ADD EXTRA SAUCES/BROTHS/GRAVIES TO TRAY TO MOISTEN SOLIDS 9. CONSIDER SOCIAL WORK CONSULT TO ADDRESS GRIEF/ABUSE ISSUES 10. ST TO FOLLOW FOR PATIENT EDUCATION, DIET TOLERANCE 11. CONSIDER ESOPHAGRAM TO RULE OUT ESOPHAGEAL DYSMOTILITY/CONSTRICTION/ OBSTRUCTION MEALTIME PROTOCOL POSTED AT BEDSIDE. DISCUSSED FINDINGS/RECOMMENDATIONS WITH ALFRED SHERIFF.
--- NOTE | 2020-03-08 14:26 | NUR ---
RADIOLOGY DEPT., LUMBAR SPINE X-RAYS COMPLETED.-P.DYE
--- NOTE | 2020-03-08 15:04 | NUR ---
CASE MANAGEMENT:NOTE CM ASKED IF PATIENT STABLE TO DOWNGRADE NO REPLY BACK FROM CARDIO DR ROSS
[2020-03-08 16:00] VITALS: BP 123/54
--- NOTE | 2020-03-08 17:56 | Diagnostic Imaging Report ---
Indication: Back pain Technique: 3 views of the lumbar spine Comparison: None Findings: Bony alignment is normal. Vertebral body heights are preserved. There are mild multilevel degenerative disc changes. Bones are somewhat osteoporotic. Pedicles are intact. Impression: No acute bony trauma
--- NOTE | 2020-03-08 18:24 | Cardiology Progress Note ---
Assessment/Plan Assessment/Plan 1. Chest pain. 2. COPD. 3. Diabetes. 4. Hypertension. 5. Obesity. all top neg tele neg bnp normal improved echo normal wall motion adn ef no sig valvular pathology continue rxn for copd will nto pursuit further cardaic test ing at this time has some edema 1 dose of diuretic in am Subjective Cardiovascular: Denies: chest pain, palpitations Respiratory: Reports: shortness of breath, SOB with excertion Gastrointestinal/Abdominal: Denies: abdominal pain Genitourinary: Denies: burning Objective Last 24 Hour Vital Signs Date Time Temp Pulse Resp B/P (MAP) Pulse Ox O2 Delivery O2 Flow Rate FiO2 03/08/20 16:00 98.6 74 19 123/54 (77) 97 03/08/20 15:37 97 Nasal Cannula 2.0 28 03/08/20 15:15 98 03/08/20 12:00 96.5 76 19 133/57 (82) 99 03/08/20 11:41 74 03/08/20 09:06 83 147/66 03/08/20 09:00 Nasal Cannula 2.0 03/08/20 08:00 97.9 83 19 147/66 (93) 96 03/08/20 07:38 80 03/08/20 04:00 69 03/08/20 04:00 97.9 78 18 151/68 (95) 97 03/08/20 00:00 98.1 79 16 154/71 (98) 98 03/08/20 00:00 86 03/07/20 23:23 81 17 100 Nasal Cannula 1.0 24 79 18 100 03/07/20 21:00 Nasal Cannula 2.0 03/07/20 20:02 100 Nasal Cannula 2.0 28 03/07/20 20:00 98.0 102 18 145/64 (91) 94 03/07/20 20:00 82 General Appearance: no apparent distress, obese Neck: supple Respiratory/Chest: lungs clear Abdomen: normal bowel sounds, non tender, soft Extremities: trace edema Intake and Output 03/07/20 03/08/20 19:00 07:00 Intake Total 795 ml 800 ml Balance 795 ml 800 ml Intake Oral 740 ml 800 ml IV Total 55 ml # Voids 4 4 Laboratory Tests Test 03/07/20 20:43 03/08/20 05:45 03/08/20 05:47 03/08/20 11:32 POC Whole Blood Glucose 141 MG/DL (74-106) H 168 MG/DL (74-106) H 150 MG/DL (74-106) H White Blood Count 6.3 K/UL (4.8-10.8) Red Blood Count 3.96 M/UL (4.20-5.40) L Hemoglobin 11.4 G/DL (12.0-16.0) L Hematocrit 35.5 % (37.0-47.0) L Mean Corpuscular Volume 90 FL (80-99) Mean Corpuscular Hemoglobin 28.7 PG (27.0-31.0) Mean Corpuscular Hemoglobin Concent 32.0 G/DL (32.0-36.0) Red Cell Distribution Width 12.7 % (11.6-14.8) Platelet Count 240 K/UL (150-450) Mean Platelet Volume 7.7 FL (6.5-10.1) Neutrophils (%) (Auto) 52.9 % (45.0-75.0) Lymphocytes (%) (Auto) 36.9 % (20.0-45.0) Monocytes (%) (Auto) 6.3 % (1.0-10.0) Eosinophils (%) (Auto) 2.5 % (0.0-3.0) Basophils (%) (Auto) 1.4 % (0.0-2.0) Sodium Level 144 MMOL/L (136-145) Potassium Level 3.6 MMOL/L (3.5-5.1) Chloride Level 107 MMOL/L (98-107) Carbon Dioxide Level 27 MMOL/L (21-32) Anion Gap 10 mmol/L (5-15) Blood Urea Nitrogen 14 mg/dL (7-18) Creatinine 1.2 MG/DL (0.55-1.30) Estimat Glomerular Filtration Rate 54.9 mL/min (>60) Glucose Level 156 MG/DL (74-106) H Calcium Level 8.9 MG/DL (8.5-10.1) Test 03/08/20 16:58 POC Whole Blood Glucose 155 MG/DL (74-106) H Microbiology Date/Time Source Procedure Growth Status 03/06/20 05:30 Sputum Expectorated Gram Stain - Final Complete 03/06/20 05:30 Sputum Expectorated Sputum Culture - Final NORMAL UPPER RESPIRATORY DULCE PRESENT Complete Rocco Davison MD Mar 08, 2020 18:24
--- NOTE | 2020-03-08 19:28 | NUR ---
HAND-OFF: Report given to ALFRED Hernandez. Pt in stable condition, endorsed plan of care.
--- NOTE | 2020-03-08 19:30 | NUR ---
NURSE NOTES: Received report from Valeri Landis RN. Pt in stable condition, denies pain. Will continue plan of care and close monitoring.
[2020-03-08 20:00] VITALS: BP 140/62
[2020-03-08] MEDS: Atorvastatin 20mg tab ORAL SCH (20:13)
[2020-03-08] MEDS: Albuterol/Ipratropium 3ml neb HHN PRN (23:29)
[2020-03-09] VITALS: BP 144/71
[2020-03-09 04:00] VITALS: BP 159/65
[2020-03-09] MEDS: NovoLOG Insulin Flexpen SUBQ SCH ×2 (05:43→11:30)
--- NOTE | 2020-03-09 06:05 | General Progress Note ---
Assessment/Plan Problem List: (1) Acute exacerbation of chronic obstructive pulmonary disease (COPD) ICD Codes: J44.1 - Chronic obstructive pulmonary disease with (acute) exacerbation SNOMED: 895881546 (2) HTN (hypertension) ICD Codes: I10 - Essential (primary) hypertension SNOMED: 21161556 (3) Diabetes ICD Codes: E11.9 - Type 2 diabetes mellitus without complications SNOMED: 24150115 (4) COPD (chronic obstructive pulmonary disease) ICD Codes: J44.9 - Chronic obstructive pulmonary disease, unspecified SNOMED: 25055018 Assessment/Plan: continue Januvia monotherapy continue to hold Metformin continue Novolog sliding scale ac hs hypoglycemia protocol in order Subjective Allergies: Coded Allergies: ERYTHROMYCIN BASE (Verified Allergy, Unknown, 09/28/18) All Systems: reviewed and negative except above Subjective events noted glucose values are in controlled range Item Value Date Time Bedside Blood Glucose 125 mg/dl H 03/09/20 0543 Bedside Blood Glucose 127 mg/dl H 03/08/20 2100 Bedside Blood Glucose 155 mg/dl H 03/08/20 1708 Bedside Blood Glucose 150 mg/dl H 03/08/20 1201 Bedside Blood Glucose 168 mg/dl H 03/08/20 0630 Objective Last 24 Hour Vital Signs Date Time Temp Pulse Resp B/P (MAP) Pulse Ox O2 Delivery O2 Flow Rate FiO2 03/09/20 04:00 97.7 60 20 159/65 (96) 95 03/09/20 04:00 79 03/09/20 00:00 97.7 73 20 144/71 (95) 97 03/08/20 23:59 77 03/08/20 23:40 75 20 99 Nasal Cannula 1.0 24 03/08/20 23:29 73 20 97 Nasal Cannula 1.0 24 03/08/20 21:00 Nasal Cannula 2.0 03/08/20 20:42 98.6 03/08/20 20:00 80 03/08/20 20:00 97.9 76 20 140/62 (88) 97 03/08/20 19:46 97 Nasal Cannula 1.0 24 03/08/20 16:00 98.6 74 19 123/54 (77) 97 03/08/20 15:37 97 Nasal Cannula 2.0 28 03/08/20 15:15 98 03/08/20 12:00 96.5 76 19 133/57 (82) 99 03/08/20 11:41 74 03/08/20 09:06 83 147/66 03/08/20 09:00 Nasal Cannula 2.0 03/08/20 08:00 97.9 83 19 147/66 (93) 96 03/08/20 07:38 80 Intake and Output 03/08/20 03/09/20 19:00 07:00 Intake Total 140 ml 300 ml Output Total 1200 ml Balance -1060 ml 300 ml Intake Oral 140 ml 300 ml Output Urine Total 1200 ml # Voids 3 3 Laboratory Tests 03/08/20 11:32: POC Whole Blood Glucose 150H 03/08/20 16:58: POC Whole Blood Glucose 155H 03/08/20 20:39: POC Whole Blood Glucose 127H Height (Feet): 5 Height (Inches): 4.00 Weight (Pounds): 273 General Appearance: no apparent distress Neck: normal alignment Cardiovascular: normal rate Respiratory/Chest: lungs clear Abdomen: normal bowel sounds Pelvis: normal external exam Objective Current Medications Medications (Trade) Dose Ordered Sig/Sergio Route PRN Reason Start Time Stop Time Status Last Admin Dose Admin Acetaminophen (Tylenol) 650 mg Q4H PRN ORAL fever 03/05/20 08:45 04/04/20 08:44 Acetaminophen/ Hydrocodone Bitart ([place] 7.5/325) 1 tab Q6H PRN ORAL For Pain 03/05/20 11:45 03/12/20 11:44 03/08/20 20:12 Albuterol/ Ipratropium (Albuterol/ Ipratropium) 3 ml Q4H PRN HHN dyspnea 03/05/20 08:45 03/10/20 08:44 03/08/20 23:29 Atorvastatin Calcium (Lipitor) 20 mg BEDTIME ORAL 03/05/20 21:00 06/03/20 20:59 03/08/20 20:13 Ceftriaxone Sodium 1 gm/ Dextrose 55 ml @ 110 mls/hr Q24H IVPB 03/05/20 12:00 03/12/20 11:59 03/08/20 11:59 Clonazepam (KlonoPIN) 1 mg Q8H PRN ORAL For Anxiety 03/06/20 16:00 03/13/20 15:59 03/08/20 09:06 Clonidine HCl (Catapres Tab) 0.1 mg Q4H PRN ORAL sbp more than 160 03/05/20 08:45 06/03/20 08:44 03/07/20 04:43 Dextrose (Dextrose 50%) 25 ml Q30M PRN IV Hypoglycemia 03/05/20 08:45 06/03/20 08:44 Dextrose (Dextrose 50%) 50 ml Q30MIN PRN IV Hypoglycemia 03/05/20 08:45 06/03/20 08:44 Furosemide (Lasix) 20 mg ONCE IV 03/09/20 09:00 03/09/20 11:00 Heparin Sodium (Porcine) (Heparin 5000 units/ml) 5,000 units EVERY 12 HOURS SUBQ 03/05/20 09:00 04/19/20 08:59 03/08/20 20:36 Insulin Aspart (NovoLOG) BEFORE MEALS AND HS SUBQ 03/05/20 11:30 06/03/20 11:29 03/08/20 17:08 Morphine Sulfate (Morphine Sulfate) 2 mg Q4H PRN IV For Pain 03/05/20 12:00 03/12/20 08:44 03/08/20 02:29 Nifedipine (Procardia XL) 60 mg DAILY ORAL 03/05/20 09:00 04/04/20 08:59 03/08/20 09:06 Nitroglycerin (Ntg) 0.4 mg Q5M X 3 DOSES PRN SL Prn Chest Pain 03/05/20 08:45 04/04/20 08:44 Ondansetron HCl (Zofran) 4 mg Q6H PRN IVP Nausea & Vomiting 03/05/20 08:45 04/04/20 08:44 Paroxetine HCl (Paxil) 20 mg DAILY ORAL 03/06/20 09:00 04/05/20 08:59 03/08/20 09:07 Promethazine HCl/ Codeine (Phenergan with Codeine) 5 ml Q6H PRN ORAL cough 03/05/20 08:45 04/04/20 08:44 Sitagliptin Phosphate (Januvia) 100 mg DAILY ORAL 03/05/20 09:00 04/04/20 08:59 03/08/20 09:08 Temazepam (Restoril) 15 mg HSPRN PRN ORAL Insomnia 03/05/20 08:45 03/12/20 08:44 03/05/20 23:36 Tizanidine HCl (Zanaflex) 2 mg DAILY ORAL 03/05/20 10:00 06/03/20 09:59 03/08/20 09:07 Favio Sanchez MD Mar 09, 2020 06:05
[2020-03-09 07:05] LABS: BASOPHILS % (AUTO) 1.2 % (0.0-2.0); EOSINOPHILS % (AUTO) 2.1 % (0.0-3.0); HEMATOCRIT 35.6 % (37.0-47.0); HEMOGLOBIN 11.4 G/DL (12.0-16.0); LYMPHOCYTES % (AUTO) 31.9 % (20.0-45.0); MEAN CORPUSCULAR VOLUME 90 FL (80-99); MONOCYTES % (AUTO) 8.1 % (1.0-10.0); NEUTROPHILS % (AUTO) 56.6 % (45.0-75.0); PLATELET COUNT 228 K/UL (150-450); RED BLOOD COUNT 3.97 M/UL (4.20-5.40); RED CELL DISTRIBUTION WIDTH 13.3 % (11.6-14.8); WHITE BLOOD COUNT 6.7 K/UL (4.8-10.8)
--- NOTE | 2020-03-09 07:11 | NUR ---
HAND-OFF: Report given to Valeri Landis RN. Pt in stable condition. Plan of care endorsed.
[2020-03-09 07:17] LABS: ANION GAP 9 mmol/L (5-15); BLOOD UREA NITROGEN 12 mg/dL (7-18); CALCIUM 8.6 MG/DL (8.5-10.1); CARBON DIOXIDE 27 MMOL/L (21-32); CHLORIDE 108 MMOL/L (98-107); CREATININE 1.2 MG/DL (0.55-1.30); POTASSIUM 3.9 MMOL/L (3.5-5.1); SODIUM 144 MMOL/L (136-145)
--- NOTE | 2020-03-09 07:50 | NUR ---
NURSE NOTES: Received report from ALFRED Hernandez. Pt in bed resting, no signs of respiratory distress. Bed in lowest positon, call light within reach. Will continue plan of care.
[2020-03-09 08:00] VITALS: BP 132/69
--- NOTE | 2020-03-09 08:32 | NUR ---
RD ASSESSMENT & RECOMMENDATIONS SEE CARE ACTIVITY FOR COMPLETE ASSESSMENT DAILY ESTIMATED NEEDS: Needs based on Obesity, dm/ 72kg abw 20-25kcal/kg kcals/kg 0936-8614 total kcals 1.0-1.3g/kg g protein/kg 72-94 g total protein 25-30 mL/kg 7621-4891 total fluid mLs NUTRITION DIAGNOSIS: Morbid obesity R/T excessive energy intake, life style factors, emotional related issues as evidenced by pt stated "I cry all the time and eat even when I am not hungry" per [employer] note, BMI 47.3, pt @ 229% IBW. CURRENT DIET:CCHO MED, soft easy chew PO DIET RECOMMENDATIONS: CCHO LOW, CARDIAC ADDITIONAL RECOMMENDATIONS: * Standing wt as able * Consider psych eval * A1C for eval of glycemic control * Monitor PO tolerance: on soft easy chew texture per [employer]
[2020-03-09] MEDS: PARoxetine HCL 20mg tab ORAL SCH (08:47)
[2020-03-09] MEDS: Heparin 5000 units/ml inj SUBQ SCH (08:48)
--- NOTE | 2020-03-09 11:35 | Pulmonology Progress Note ---
Subjective ROS Limited/Unobtainable: No Interval Events: doing better, No dyspnea at rest Allergies: Coded Allergies: ERYTHROMYCIN BASE (Verified Allergy, Unknown, 09/28/18) All Systems: reviewed and negative except above Objective Last 24 Hour Vital Signs Date Time Temp Pulse Resp B/P (MAP) Pulse Ox O2 Delivery O2 Flow Rate FiO2 03/09/20 09:00 Nasal Cannula 2.0 03/09/20 08:46 78 132/69 03/09/20 08:00 98.1 78 18 132/69 (90) 97 03/09/20 07:42 76 03/09/20 07:11 99 Nasal Cannula 2.0 28 03/09/20 04:00 97.7 60 20 159/65 (96) 95 03/09/20 04:00 79 03/09/20 00:00 97.7 73 20 144/71 (95) 97 03/08/20 23:59 77 03/08/20 23:40 75 20 99 Nasal Cannula 1.0 24 03/08/20 23:29 73 20 97 Nasal Cannula 1.0 24 03/08/20 21:00 Nasal Cannula 2.0 03/08/20 20:42 98.6 03/08/20 20:00 80 03/08/20 20:00 97.9 76 20 140/62 (88) 97 03/08/20 19:46 97 Nasal Cannula 1.0 24 03/08/20 16:00 98.6 74 19 123/54 (77) 97 03/08/20 15:37 97 Nasal Cannula 2.0 28 03/08/20 15:15 98 03/08/20 12:00 96.5 76 19 133/57 (82) 99 03/08/20 11:41 74 Intake and Output 03/08/20 03/09/20 19:00 07:00 Intake Total 140 ml 300 ml Output Total 1200 ml Balance -1060 ml 300 ml Intake Oral 140 ml 300 ml Output Urine Total 1200 ml # Voids 3 3 General Appearance: no acute distress, other - morbidly obese HEENT: normocephalic, atraumatic, anicteric, mucous membranes moist, PERRL Respiratory: no respiratory distress, no accessory muscle use, decreased breath sounds Cardiovascular: normal peripheral pulses, normal rate Abdomen: soft, non tender - obese Extremities: no edema, pedal pulses normal Neurologic: no motor/sensory deficits, alert, oriented x 3, responsive Musculoskeletal: normal muscle bulk Laboratory Tests 03/08/20 16:58: POC Whole Blood Glucose 155H 03/08/20 20:39: POC Whole Blood Glucose 127H 03/09/20 06:32: White Blood Count 6.7, Red Blood Count 3.97L, Hemoglobin 11.4L, Hematocrit 35.6L , Mean Corpuscular Volume 90, Mean Corpuscular Hemoglobin 28.8, Mean Corpuscular Hemoglobin Concent 32.2, Red Cell Distribution Width 13.3, Platelet Count 228, Mean Platelet Volume 7.3, Neutrophils (%) (Auto) 56.6, Lymphocytes (% ) (Auto) 31.9, Monocytes (%) (Auto) 8.1, Eosinophils (%) (Auto) 2.1, Basophils ( %) (Auto) 1.2, Sodium Level 144, Potassium Level 3.9, Chloride Level 108H, Carbon Dioxide Level 27, Anion Gap 9, Blood Urea Nitrogen 12, Creatinine 1.2, Estimat Glomerular Filtration Rate 54.9, Glucose Level 135H, Calcium Level 8.6 Current Medications Medications (Trade) Dose Ordered Sig/Sergio Route PRN Reason Start Time Stop Time Status Last Admin Dose Admin Acetaminophen (Tylenol) 650 mg Q4H PRN ORAL fever 03/05/20 08:45 04/04/20 08:44 Acetaminophen/ Hydrocodone Bitart ([place] 7.5/325) 1 tab Q6H PRN ORAL For Pain 03/05/20 11:45 03/12/20 11:44 03/08/20 20:12 Albuterol/ Ipratropium (Albuterol/ Ipratropium) 3 ml Q4H PRN HHN dyspnea 03/05/20 08:45 03/10/20 08:44 03/08/20 23:29 Atorvastatin Calcium (Lipitor) 20 mg BEDTIME ORAL 03/05/20 21:00 06/03/20 20:59 03/08/20 20:13 Ceftriaxone Sodium 1 gm/ Dextrose 55 ml @ 110 mls/hr Q24H IVPB 03/05/20 12:00 03/12/20 11:59 03/08/20 11:59 Clonazepam (KlonoPIN) 1 mg Q8H PRN ORAL For Anxiety 03/06/20 16:00 03/13/20 15:59 03/08/20 09:06 Clonidine HCl (Catapres Tab) 0.1 mg Q4H PRN ORAL sbp more than 160 03/05/20 08:45 06/03/20 08:44 03/07/20 04:43 Dextrose (Dextrose 50%) 25 ml Q30M PRN IV Hypoglycemia 03/05/20 08:45 06/03/20 08:44 Dextrose (Dextrose 50%) 50 ml Q30MIN PRN IV Hypoglycemia 03/05/20 08:45 06/03/20 08:44 Heparin Sodium (Porcine) (Heparin 5000 units/ml) 5,000 units EVERY 12 HOURS SUBQ 03/05/20 09:00 04/19/20 08:59 03/09/20 08:48 Insulin Aspart (NovoLOG) BEFORE MEALS AND HS SUBQ 03/05/20 11:30 06/03/20 11:29 03/08/20 17:08 Morphine Sulfate (Morphine Sulfate) 2 mg Q4H PRN IV For Pain 03/05/20 12:00 03/12/20 08:44 03/08/20 02:29 Nifedipine (Procardia XL) 60 mg DAILY ORAL 03/05/20 09:00 04/04/20 08:59 03/09/20 08:46 Nitroglycerin (Ntg) 0.4 mg Q5M X 3 DOSES PRN SL Prn Chest Pain 03/05/20 08:45 04/04/20 08:44 Ondansetron HCl (Zofran) 4 mg Q6H PRN IVP Nausea & Vomiting 03/05/20 08:45 04/04/20 08:44 Paroxetine HCl (Paxil) 20 mg DAILY ORAL 03/06/20 09:00 04/05/20 08:59 03/09/20 08:47 Promethazine HCl/ Codeine (Phenergan with Codeine) 5 ml Q6H PRN ORAL cough 03/05/20 08:45 04/04/20 08:44 Sitagliptin Phosphate (Januvia) 100 mg DAILY ORAL 03/05/20 09:00 04/04/20 08:59 03/09/20 08:47 Temazepam (Restoril) 15 mg HSPRN PRN ORAL Insomnia 03/05/20 08:45 03/12/20 08:44 03/05/20 23:36 Tizanidine HCl (Zanaflex) 2 mg DAILY ORAL 03/05/20 10:00 06/03/20 09:59 03/09/20 08:46 Assessment/Plan Problems: (1) ACS (acute coronary syndrome) (2) Acute exacerbation of chronic obstructive pulmonary disease (COPD) (3) Diabetes (4) HTN (hypertension) (5) History of renal stent Assessment/Plan no new complains troponin negative Echo WNL respiratory therapy check sputum, it is whitish monitor BP sliding scale diabetic diet pt/ot dc home if ok with cardio Loc Waite MD Mar 09, 2020 11:35
[2020-03-09 12:00] VITALS: BP 117/75
[2020-03-09] MEDS: cefTRIAXone 1 GM in D5W 55 ML IVPB SCH (12:54)
[2020-03-09] MEDS: HYDROcodone/Acetamin 7.5/325 tab ORAL PRN (12:54)
--- NOTE | 2020-03-09 12:56 | NUR ---
NURSE NOTES: Pt was seen by ST, before pt will be DC'd. Pt receiving noon time dose of IV abx, will be DC when med is finished.
--- NOTE | 2020-03-09 14:11 | NUR ---
NURSE NOTES: Pt notified son of discharge from hospital, will be leaving with her own car. Went through belongings together and signed discharge papers. Retrieved home medications from pharmacy and returned to pt. Educated pt on COPD, diet to control diabetes, and hypertension. Pt verbalized understanding by teach back method. She is alert & oriented x4, BP stable, no signs of acute respiratory distress, ambulatory. IV disconnected, no bleeding on site. Tele monitor disconnected and ID band removed.
--- NOTE | 2020-03-09 15:55 | NUR ---
SWALLOW STATUS/DISCHARGE SUMMARY PATIENT CLEARED FOR ST INTERVENTION BY ALFRED MARTINEZ. PER RN AND PATIENT, SHE HAS NOT EXPERIENCED ANY DIFFICULTIES WITH SWALLOWING LIQUIDS AND SOLIDS SINCE IMPLEMENTATION OF MEALTIME PROTOCOL AND MODIFICATION OF HER DIET TEXTURE (RE: SOLIDS). NO OVERT S/S OF ASPIRATION DURING ADMINISTRATION OF CRUSHED MEDS OR DURING MEALS. PATIENT WROTE DOWN THE 8 GUIDELINES FOR OPTIMAL P.O. INTAKE FOR USE HOME. THEY INCLUDED: 1. WET SLIPPERY FOODS VS DRY STICKY CRUMBLY FOODS. SOFT EASY CHEW SOLIDS/THIN LIQUIDS 2. MOISTEN MOUTH WITH OTC MOUTH MOISTENER PRIOR TO P.O. 3. CRUSH CRUSHABLE MEDS/PRESENT IN PUREE OR GET MEDS IN LIQUID FORM IF AVAILABLE 4. ADD EXTRA SAUCES/BROTHS/GRAVIES TO MEATS TO MOISTEN 5. 6 SMALL MEALS VS 3 LARGE FOR ENERGY CONSERVATION 6. IF SHORT OF BREATH DURING THE MEAL STOP/RELAX, THEN RESUME MEAL. 7. DO NOT EAT WHEN SHORT OF BREATH 8. IF FUTURE DIFFICULTIES WITH SWALLOWING ARISE, KEEP A LOG OF ITEMS DIFFICULT TO SWALLOW AND NOTIFY MD. PATIENT VERBALIZED UNDERSTANDING OF THESE STRATEGIES AND CONCURRED WITH THEM DURING THIS INTERVENTION THE SL[facility] ([facility] MENTAL SCALE)WAS ALSO ADMINISTERED AND THE PATIENT ACHIEVED A RAW SCORE OF 23 WHICH IS CONSISTENT WITH MILD NEUROCOGNITIVE DECLINE. THE PATIENT COMPLAINED OF A RECENT DECLINE IN COGNITIVE SKILLS. SHE WAS PRESENTED WITH STRATEGIES TO MAINTAIN COGNITIVE FUNCTION. SHE WROTE DOWN A LIST OF COGNITIVE TASKS WHICH CAN BE PURSUED AT HOME (I.E. BRAIN GAMES ON THE COMPUTER, LUMINOSITY, IN ADDITION TO OTHER COGNITIVE TASKS SUCH PUZZLES, ETC.) SHE WAS INFORMED THAT MILD COGNITIVE IMPAIRMENTS CAN OFTEN BE REVERSED WITH THE APPLICATION OF MENTALLY CHALLENGING TASKS. SHE VERBALIZED UNDERSTANDING OF THE NEED TO PURSUE COGNITIVELY CHALLENGING TASKS. PATIENT IS SCHEDULED TO BE DISCHARGED THIS AFTERNOON TO RETURN HOME WITH FAMILY. D/C FROM [facility].
--- NOTE | 2020-03-10 15:32 | Discharge Summary ---
Discharge Summary Discharge Summary _ DATE OF ADMISSION: 03/05/2020 DATE OF DISCHARGE: 03/09/2020 DISCHARGED BY: REASON FOR ADMISSION: 64 years old female with past medical history of COPD, diabetes mellitus, hypertension, morbid obesity, osteoarthritis, presented to emergency department complaining of chest pain, shortness of breath. Patient reported chest tightness and nonproductive cough. Patient also reported upper back pain for the past week. Patient complained of exertional chest pain. Patient was not on any blood thinners. She denied fever and chills. She denied abdominal pain , nausea or vomiting. Upon evaluation vital signs were stable . ABG was stable on 2 L of oxygen via nasal cannula Laboratory work-up revealed potassium 3.3. BUN 13, creatinine 1.4. Glucose 130. Troponin negative. Pro BNP 8. Lactic acid 2.5. No leukocytosis ,stable hemoglobin ,hematocrit and platelet count. D-dimer slightly elevated 1.09. Urinalysis revealed no evidence of urinary tract infection. Chest x-ray demonstrated no acute cardiopulmonary pathology. In emergency department patient was tested with rapid COVID test, which was negative. Patient received aspirin and nitroglycerin chest pain resolved. Hypokalemia was treated. VQ scan ordered . Patient admitted to telemetry floor for further management. CONSULTANTS: manager of application development Dr. Davison pulmonary Dr. Waite stock clipper Dr. Sanchez [facility]SE: Patient admitted to telemetry floor. Patient initially was kept in isolation. Patient started on empiric antibiotics. Both rapid COVID 18 and COVID 19 by PCR were negative. Isolation discontinued. Sputum culture was negative. Blood cultures were negative. Supplemental oxygen provided and titrated to keep pulse oximetry above 92%. Chest physical therapy provided. Bronchodilators provided as needed. VQ scan revealed low probability for pulmonary emboli. DVT prophylaxis with heparin provided. Echocardiogram demonstrated preserved ejection fraction of 60 to 65%. No evidence of left ventricular hypertrophy. No evidence of wall motion abnormality. No evidence of pericardial effusion. Right ventricular systolic pressure of 38 consistent with a mild pulmonary hypertension. Patient started on statin , given diabetes mellitus.. Blood pressure was managed with calcium channel maría. Clonidine was on board as needed for blood pressure spikes. Blood sugar was managed with Januvia and sliding-scale of insulin as needed . as per stock clipper recommendation. Diabetic diet and diabetic teaching provided. Lumbar spine x-ray revealed no acute bony trauma. Pain management was addressed as needed. Supportive care provided. Chest pain was felt to be likely due to COPD exacerbation. Per manager of application development no need to pursue further cardiac testing at this time. Patient had some edema and received 1 dose of diuretic . Renal parameters and electrolytes were closely monitored, electrolytes corrected as needed . Creatinine from 1.4 down to 1.2 prior to discharge. Chest pain resolved. Pulse oximetry stable on room air. Patient clinically stabilized and was ready for discharge back home FINAL DIAGNOSES: Chest pain , possible ACS COPD exacerbation Diabetes mellitus Hypertension Morbid obesity Dyslipidemia CKD with renal stent placement Severe osteoarthritis DISCHARGE MEDICATIONS: See Medication Reconciliation list. DISCHARGE INSTRUCTIONS: Patient was discharged home. Follow-up with a primary care provider in 1 week. Debra Quiroga NP Mar 10, 2020 15:32
== END 2020-03-09 14:00 | disposition home or self-care (01) | DRG 191 ==
LOC: EMR 02:58 → 2E 03:30 → EDBEDREQ 03:36
DX: J44.1 Chronic obstructive pulmonary disease with (acute) exacerbation (principal); I24.9 Acute ischemic heart disease, unspecified; Z68.42 Body mass index [BMI] 45.0-49.9, adult; I12.9 Hypertensive chronic kidney disease with stage 1 through stage 4 chronic kidney disease, or unspecified chronic kidney disease; J44.9 Chronic obstructive pulmonary disease, unspecified; I10 Essential (primary) hypertension; E66.01 Morbid (severe) obesity due to excess calories; E11.22 Type 2 diabetes mellitus with diabetic chronic kidney disease; M17.11 Unilateral primary osteoarthritis, right knee; N18.9 Chronic kidney disease, unspecified; Z96.0 Presence of urogenital implants; F41.0 Panic disorder [episodic paroxysmal anxiety]; Z88.1 Allergy status to other antibiotic agents; Z96.651 Presence of right artificial knee joint; E78.5 Hyperlipidemia, unspecified; Z79.84 Long term (current) use of oral hypoglycemic drugs; I27.20 Pulmonary hypertension, unspecified
CPT/HCPCS: 36415; 36600; 71045; 72020; 78579; 78580; 80048; 80053; 81003; 82803; 82962; 83605; 83735; 83880; 84484; 85025; 85379; 85610; 85730; 87040; 87070; 87205; 93005; 93306; 94640; 99285; A9503; J1815; J7030; J7620; J8499; U0002